=== PATIENT | male | born 1945 | race Hispanic/Latino ===

== ENCOUNTER 2019-05-06 21:37 | Emergency (ER) | payer MEDICARE ==
[~2019-05-06] VITALS: Ht 172.7 cm; Wt 73.9 kg
--- OUTSIDE RECORDS SUMMARY | 2019-05-06 21:42 | XMS REPORT | Summary of Care ---
Author Author [facility] Care [facility] Organization [facility] Address Unknown Phone Unavailable Care Team Providers Care Edge Stripper Name Role Phone Noemi Golden PCP Encounter HQ Shelleyntr_izzy(FIN) [phone] Date(s): 09/19/18 - 09/20/18 [facility] [address] [facility] [address] [place] [address]- Vital Signs No data available for this section Problem List Condition Effective Dates Status Health Status Informant Hx of unilateral Active nephrectomy(Confirme d) Benign essential Active hypertension(Confirm ed) Benign prostatic 11/14/59 Active hyperplasia(Confirme d)1 Symptomatic Active bradycardia(Confirme d) Cardiac Active pacemaker(Confirmed) Cervical Active spondylosis(Confirme d) Chronic atrial Active fibrillation(Confirm ed) Chronic back Active pain(Confirmed) Chronic kidney Active disease, stage 3(Confirmed)2 Chronic Active sinusitis(Confirmed) Acute Resolved diverticulitis(Confi rmed) Gastritis(Confirmed) Active H/O renal cell Active cancer(Confirmed) History of polyp of 04/16/15 Active colon3 Type 2 diabetes Active mellitus with hyperglycemia(Confir med) Long-term insulin Active use(Confirmed) Lumbar Active spondylosis(Confirme d) Mixed 04/12/13 Active hyperlipidemia(Confi rmed)4 Onychomycosis of Active toenails5 Overweight(Confirmed Active ) Medicare annual Active wellness visit, subsequent(Confirmed ) Screening for Active prostate cancer(Confirmed) Tension Active headache(Confirmed) Type 2 diabetes Active mellitus with polyneuropathy(Confi rmed) Encounter for Active immunization(Confirm ed) 1Data migrated from [employer] on 05/21/15. 2Data migrated from [employer] on 04/12/15. 3Data migrated from [employer] on 05/21/15. 4Data migrated from [employer] on 05/21/15. 5Data migrated from [email or web address] on 04/12/15. Allergies, Adverse Reactions, Alerts Substance Reaction Severity Status clindamycin1 nausea Active 1Data migrated from [employer] on 05/22/15. Originally documented as CLINDAMYCIN HCL. nausea Medications No data available for this section Results No data available for this section Immunizations Given and Recorded Vaccine Date Status Refusal Reason influenza virus vaccine, inactivated1 08/18/18 Recorded influenza virus vaccine, inactivated 07/20/17 Given influenza virus vaccine, inactivated 08/19/15 Given influenza virus vaccine, inactivated2 07/24/14 Given zoster vaccine live3 07/06/16 Recorded Hx influenza vaccine-unspecified4 07/06/16 Recorded Hx influenza vaccine-unspecified5 07/24/14 Given pneumococcal 13-valent vaccine6 07/06/16 Recorded 1Location History: [facility] 2Result Comment: fluzone high dose [[id number]]. Migrated from OBS ; Data migrated from [employer] on 12/16/2015. 3Location History: Pharmacy 4Location History: Pharmacy 5Result Comment: done. Migrated from OBS ; Data migrated from [employer] on 12/16/2015. 6Location History: Pharmacy Procedures Procedure Date Related Diagnosis Body Site Status CT guided percutaneous cryotherapy ablation 03/20/19 Completed of tumour of kidney1 Core needle biopsy of kidney2 12/27/18 Completed Influenza vaccination 08/18/18 Completed Comprehensive eye examination3 05/03/17 Completed Administration of herpes zoster vaccine 07/06/16 Completed Pneumococcal vaccination4 07/06/16 Completed Implantation of cardiac pacemaker 03/2016 Completed Nephrectomy5 10/24/15 Completed Colonoscopy6 05/28/15 Completed Decompression laminectomy of lumbar spine Completed TURP - Transurethral resection of prostate Completed 1Procedure: Left renal ablation-image guided. Indication: renal cell carcinoma Left kidney. 2left kidney 3no retinopathy, cataract OD 4Pre-13 5Right kidney due to right renal cancer 6polyps, diverticulosis, repeat in 3 years Social History Social History Type Response Substance Abuse Use: None. Exercise Exercise duration: 25. Exercise frequency: 1-2 times/week. Exercise type: Walking. 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 Alcohol Never Smoking Status Never smoker; Type: Cigars; Exposure to Tobacco Smoke None; Cigarette Smoking Last 365 Days No; Reg Smoking Cessation Counseling No entered on: 04/02/19 Assessment and Plan No data available for this section
--- OUTSIDE RECORDS SUMMARY | 2019-05-06 21:42 | XMS REPORT | Summary of Care ---
Author Author [facility] Organization [facility] Address Unknown Phone Unavailable Encounter SIMRAN Blake(M[place]COL[place]) [id number] Date(s): 03/06/19 - 03/06/19 [facility] [address] [place] [address]- [facility] [phone] Discharge Disposition: Home or Self Care Attending Physician: Joey Reyes MD Referring Physician: Joey Reyes MD Vital Signs 1 2 3 Most recent to oldest [Reference Range]: 172.72 cm (03/01/19 2:41 PM) Height 152/71 mmHg *HI* (03/06/19 9:35 AM) 153/80 mmHg *HI* (03/06/19 9:20 AM) 151/83 mmHg *HI* (03/06/19 9:05 AM) Blood Pressure [90-140/60-90 mmHg] 21 BRMIN *HI* (03/06/19 9:35 AM) 16 BRMIN (03/06/19 9:20 AM) 17 BRMIN (03/06/19 9:05 AM) Respiratory Rate [14-20 BRMIN] 74.574 kg (03/06/19 6:30 AM) Weight 25 m2 (03/06/19 6:30 AM) Body Mass Index Problem List Condition Effective Dates Status Health Status Informant Abdominal Active bloating(Confirmed) Hx of unilateral Active nephrectomy(Confirme d) Back pain(Confirmed) Active Benign essential Active hypertension(Confirm ed) Benign prostatic 11/14/59 Active hyperplasia(Confirme d)1 Body mass index Active 26.0-26.9, adult(Confirmed) Symptomatic Active bradycardia(Confirme d) Cancer of Active kidney(Confirmed) Cardiac Active pacemaker(Confirmed) Cervical Active spondylosis(Confirme d) Chronic atrial Active fibrillation(Confirm ed) Chronic back Active pain(Confirmed) Chronic kidney Resolved disease, stage 3(Confirmed)2 Chronic Active sinusitis(Confirmed) Mucocele of nasal Active sinus(Confirmed) Diabetes(Confirmed) Active Acute Active diverticulitis(Confi rmed) Gastritis(Confirmed) Active H/O renal cell Active cancer(Confirmed) History of polyp of 04/16/15 Active colon3 Type 2 diabetes Active mellitus with hyperglycemia(Confir med) Hypertension(Confirm Active ed) Impacted cerumen of Active right ear(Confirmed) Long-term insulin Active use(Confirmed) Lumbar Active spondylosis(Confirme d) Mixed 04/12/13 Active hyperlipidemia(Confi rmed)4 Onychomycosis of Active toenails5 Otalgia of right Active ear(Confirmed) Overweight(Confirmed Active ) Medicare annual Active wellness visit, subsequent(Confirmed ) Left renal Active mass(Confirmed) Screening for Active prostate cancer(Confirmed) Sore Active throat(Confirmed) Tension Active headache(Confirmed) Type 2 diabetes Active mellitus with polyneuropathy(Confi rmed) Encounter for Active immunization(Confirm ed) 1Data migrated from [employer] on 05/21/15. 2Data migrated from [employer] on 04/12/15. 3Data migrated from [employer] on 05/21/15. 4Data migrated from [employer] on 05/21/15. 5Data migrated from [employer] on 04/12/15. Allergies, Adverse Reactions, Alerts Substance Reaction Severity Status clindamycin1 nausea Active 1Data migrated from [employer] on 05/22/15. Originally documented as CLINDAMYCIN HCL. nausea Medications ANES fentaNYL 25 microgram, 0.5 mL, Route: IVP, Drug form: INJ, Q5Min, Dosing Weight 74.574, k g, PRN Pain Score 4-6, Priority: Routine, Start date: 03/06/19 8:14:00 CDT, Dura tion: 4 doses or times, Stop date: Limited # of times Notes: (Same as: Sublimaze) Preservative free. Start Date: 03/06/19 Stop Date: 03/06/19 Status: Discontinued ANES flumazenil 0.2 mg, 2 mL, Route: IVP, Drug form: INJ, PRN, Dosing Weight 74.574, kg, PRN Rylan zodiazepine Reversal, Initial dose, Start date: 03/06/19 8:14:00 CDT, Duration: 30 day, Stop date: 04/05/19 8:13:00 CDT Notes: (Same as: Romazicon) Start Date: 03/06/19 Stop Date: 03/06/19 Status: Discontinued ANES hydrALAZINE 10 mg, 0.5 mL, Route: IVP, Drug form: INJ, Q20Min, Dosing Weight 74.574, kg, PRN Elevated BP, Start date: 03/06/19 8:14:00 CDT, Duration: 2 doses or times, Stop date: Limited # of times Notes: (Same as: Apresoline)Push over 5 minutes Start Date: 03/06/19 Stop Date: 03/06/19 Status: Discontinued ANES naloxone 0.4 mg, 1 mL, Route: IVP, Drug form: INJ, Q2MIN, Dosing Weight 74.574, kg, PRN N arcotic Reversal, Start date: 03/06/19 8:14:00 CDT, Duration: 8 doses or times, Stop date: Limited # of times Notes: Same as Narcan Start Date: 03/06/19 Stop Date: 03/06/19 Status: Discontinued ANES ondansetron 4 mg, 2 mL, Route: IVP, Drug form: INJ, ONCE, Dosing Weight 74.574, kg, PRN Naus ea & Vomiting, Start date: 03/06/19 8:14:00 CDT Notes: (Same as: Zofran) MEDICATION WASTE Product Size: 4 mgProduct Was amanda: ___ mg Start Date: 03/06/19 Stop Date: 03/06/19 Status: Discontinued ciprofloxacin (ANES) Route: IV, Drug form: INJ, ONCE, Stop date: 03/06/19 8:18:00 CDT Start Date: 03/06/19 Stop Date: 03/06/19 Status: Completed dexamethasone (ANES) Route: IV, Drug form: INJ, ONCE, Stop date: 03/06/19 8:18:00 CDT Start Date: 03/06/19 Stop Date: 03/06/19 Status: Completed fentaNYL (ANES) Route: IV, Drug form: INJ, ONCE, Stop date: 03/06/19 8:18:00 CDT Start Date: 03/06/19 Stop Date: 03/06/19 Status: Completed furosemide 20 mg oral tablet 20 mg=1 tab, PO, Daily Start Date: 03/01/19 Status: Ordered ketOROLAC (ANES) IV, ONCE Start Date: 03/06/19 Stop Date: 03/06/19 Status: Completed Lactated Ringers Injection IV (ANES) 1000 mL Route: IV, Total Volume: 1,000, Start date: 03/06/19 6:45:00 CDT, Stop date: 7:45:00 CDT Start Date: 03/06/19 Stop Date: 03/06/19 Status: Completed Lactated Ringers Injection IV 1,000 mL 1,000 mL, Rate: 25 ml/hr, Infuse over: 40 hr, Route: IV, Dosing Weight 74.545 kg , Total Volume: 1,000, Start date: 03/06/19 5:58:00 CDT, Duration: 30 day, Stop date: 04/05/19 5:57:00 CDT, 1.9, m2 Start Date: 03/06/19 Stop Date: 03/06/19 Status: Discontinued ondansetron (ANES) Route: IV, Drug form: INJ, ONCE, Stop date: 03/06/19 8:18:00 CDT Start Date: 03/06/19 Stop Date: 03/06/19 Status: Completed propofol (ANES) Route: IV, Drug form: INJ, ONCE, Stop date: 03/06/19 8:18:00 CDT Start Date: 03/06/19 Stop Date: 03/06/19 Status: Completed tramadol 50 mg oral tablet 50 mg, 1 tab, Route: PO, Drug form: TAB, ONCE, Dosing Weight 74.574, kg, Start d ate: 03/06/19 9:25:00 CDT, Stop date: 03/06/19 9:25:00 CDT Start Date: 03/06/19 Stop Date: 03/06/19 Status: Completed Results ELECTROLYTES Most recent to 1 oldest [Reference Range]: Sodium Lvl [135-145 137 mEq/L mEq/L] (03/01/19 2:46 PM) Potassium Lvl 4.8 mEq/L [3.5-5.1 mEq/L] (03/01/19 2:46 PM) Chloride Lvl [95-109 104 mEq/L mEq/L] (03/01/19 2:46 PM) CO2 [24-32 mEq/L] 28 mEq/L (03/01/19 2:46 PM) AGAP [10.0-20.0 9.8 mEq/L mEq/L] *LOW* (03/01/19 2:46 PM) CHEM PANEL Most recent to 1 oldest [Reference Range]: Creatinine Lvl 1.24 mg/dL [0.50-1.40 mg/dL] (03/01/19 2:46 PM) eGFR 57 mL/min/1.73m2 1 *NA* (03/01/19 2:46 PM) BUN [7-22 mg/dL] 15 mg/dL (03/01/19 2:46 PM) Glucose Lvl [70-99 207 mg/dL mg/dL] *HI* (03/01/19 2:46 PM) Calcium Lvl 9.9 mg/dL [8.5-10.5 mg/dL] (03/01/19 2:46 PM) 1Result Comment: The eGFR is calculated using the CKD-EPI formula. In most young, healthy individuals the eGFR will be >90 mL/min/1.73m2. The eGFR declines with age. An eGFR of 60-89 may be normal in some populations, particularly the elderly, for whom the CKD-EPI formula has not been extensively validated. Use of the eGFR is not recommended in the following populations: Individuals with unstable creatinine concentrations, including patients and those with serious co-morbid conditions. Patients with extremes in muscle mass or diet. The data above are obtained from the National Kidney Disease Education Program ( NKDEP) which additionally recommends that when the eGFR is used in patients with extremes of body mass index for purposes of drug dosing, the eGFR should be mul tiplied by the estimated BMI. SPECIAL CHEMISTRY Most recent to 1 oldest [Reference Range]: Hgb A1C [<=5.6 %] 7.9 % *HI* (03/01/19 2:46 PM) HEMATOLOGY Most recent to 1 oldest [Reference Range]: WBC [3.7-10.4 K/CMM] 8.8 K/CMM (03/01/19 2:46 PM) RBC [4.70-6.10 4.87 M/CMM M/CMM] (03/01/19 2:46 PM) Hgb [14.0-18.0 g/dL] 15.5 g/dL (03/01/19 2:46 PM) Hct [42.0-54.0 %] 45.3 % (03/01/19 2:46 PM) MCV [80.0-94.0 fL] 92.9 fL (03/01/19 2:46 PM) MCH [27.0-31.0 pg] 31.8 pg *HI* (03/01/19 2:46 PM) MCHC [32.0-36.0 34.2 g/dL g/dL] (03/01/19 2:46 PM) RDW [11.5-14.5 %] 13.1 % (03/01/19 2:46 PM) MPV [7.4-10.4 fL] 7.4 fL (03/01/19 2:46 PM) Platelet [133-450 211 K/CMM K/CMM] (03/01/19 2:46 PM) Segs [45.0-75.0 %] 71.0 % (03/01/19 2:46 PM) Lymphocytes 19.3 % [20.0-40.0 %] *LOW* (03/01/19 2:46 PM) Monocytes [2.0-12.0 8.8 % %] (03/01/19 2:46 PM) Eosinophils [0.0-4.0 0.2 % %] (03/01/19 2:46 PM) Basophils [0.0-1.0 0.7 % %] (03/01/19 2:46 PM) Neutrophils # 6.3 K/CMM [1.5-8.1 K/CMM] (03/01/19 2:46 PM) Lymphocytes # 1.7 K/CMM [1.0-5.5 K/CMM] (03/01/19 2:46 PM) Monocytes # [0.0-0.8 0.8 K/CMM K/CMM] (03/01/19 2:46 PM) Basophils # [0.0-0.2 0.1 K/CMM K/CMM] (03/01/19 2:46 PM) Immunizations Given and Recorded Vaccine Date Status Refusal Reason influenza virus vaccine, inactivated1 08/18/18 Recorded influenza virus vaccine, inactivated 07/20/17 Given influenza virus vaccine, inactivated 08/19/15 Given influenza virus vaccine, inactivated2 07/24/14 Given pneumococcal 13-valent vaccine3 07/06/16 Recorded Hx influenza vaccine-unspecified4 07/06/16 Recorded Hx influenza vaccine-unspecified5 07/24/14 Given zoster vaccine live6 07/06/16 Recorded 1Location History: [facility] 2Result Comment: fluzone high dose [[id number]]. Migrated from OBS ; Data migrated from Interview on 12/16/2015. 3Location History: Pharmacy 4Location History: Pharmacy 5Result Comment: done. Migrated from OBS ; Data migrated from Interview on 12/16/2015. 6Location History: Pharmacy Procedures Procedure Date Related Diagnosis Body Site Status Core needle biopsy of kidney1 12/27/18 Completed Influenza vaccination 08/18/18 Completed Comprehensive eye examination2 05/03/17 Completed Administration of herpes zoster vaccine 07/06/16 Completed Pneumococcal vaccination3 07/06/16 Completed Implantation of cardiac pacemaker 03/2016 Completed Nephrectomy4 10/24/15 Completed Colonoscopy5 05/28/15 Completed Decompression laminectomy of lumbar spine Completed TURP - Transurethral resection of prostate Completed 1left kidney 2no retinopathy, cataract OD 3Prevnar-13 4Right kidney due to right renal cancer 5polyps, diverticulosis, repeat in 3 years Social History Social History Type Response Substance Abuse Use: None. Exercise Exercise duration: 25. Exercise frequency: 1-2 times/week. Exercise type: Walking. 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
--- OUTSIDE RECORDS SUMMARY | 2019-05-06 21:42 | XMS REPORT | Continuity of Care Document ---
Author Author [facility] Interface Address Unknown Phone Unavailable Problems Problem Status Onset Date Classification Date Reported Comments Source DSU/CRYOABLATION OF LEFT LOWER POLE REINIER Active 03/13/2019 [facility] UNK Active 02/23/2019 [facility] CYSTO STENT PLACEMENT Active 02/23/2019 [facility] RENAL MASS Active 12/05/2018 [facility] Other specified disorders of kidney and ureter 09/30/2018 04/16/2019 [facility] DX: N28.89=OTHER SPECIFIED DISORDERS OF Active 09/19/2018 [facility] BACK PAIN Active 11/14/2016 [facility] [place] Discharge Diagnosis: Renovascular hypertension 11/06/2016 11/09/2016 [facility] Discharge Diagnosis: Acute ethmoidal sinusitis 11/06/2016 11/09/2016 [facility] Discharge Diagnosis: Acute tension-type headache 11/06/2016 11/09/2016 [facility] Discharge Diagnosis: Chronic right maxillary sinusitis 11/06/2016 11/09/2016 [facility] Discharge Diagnosis: Controlled diabetes mellitus type 2 with complications 11/06/2016 11/09/2016 [facility] HEAD PAIN Active 11/05/2016 [facility] DIVERTICULITIS Active 03/25/2016 [facility] ABD PAIN Active 03/25/2016 [facility] M89.8X1 - OTHER SPECIFIED DISORDERS OF B Active 02/13/2016 [facility] History of polyp of colon<sup>3</sup> Active 04/16/2015 Problem 05/04/2019 Data migrated from [email or web address] on 05/21/15. Medical Group,[facility], [place],[facility] History of polyp of colon<sup>4</sup> Active 04/16/2015 Problem 11/09/2016 Data migrated from [email or web address] on 05/21/15. [facility] Iron deficiency anemia<sup>5</sup> Resolved 01/13/2015 Problem 11/09/2016 Data migrated from [email or web address] on 05/21/15. [facility] Iron deficiency anemia<sup>4</sup> Active 01/13/2015 Problem 12/29/2018 Data migrated from [employer] on 05/21/15. Medical Group,[facility] HYPONATREMIA, HEADACHE Active 03/22/2014 [facility] HEADACHE, WEAKNESS Active 03/22/2014 [facility] Benign essential hypertension<sup>1</sup> Active 04/12/2013 Problem 11/09/2016 Data migrated from [employer] on 04/12/15. MARCELLUS [place],[facility] Microalbuminuria<sup>6</sup> Active 04/12/2013 Problem 11/09/2016 Data migrated from [employer] on 04/12/15. MARCELLUS [place],[facility] Mixed hyperlipidemia<sup>7</sup> Active 04/12/2013 Problem 11/09/2016 Data migrated from [employer] on 05/21/15. MARCELLUS [place],[facility] Mixed hyperlipidemia<sup>4</sup> Active 04/12/2013 Problem 05/04/2019 Data migrated from [employer] on 05/21/15. Medical Group,[facility] Mixed hyperlipidemia<sup>5</sup> Active 04/12/2013 Problem 12/29/2018 Data migrated from [employer] on 05/21/15. [facility] prostatic hyperplasia<sup>1</sup> Active 11/14/1961 Problem 05/04/2019 Data migrated from [employer] on 05/21/15. [facility] Benign prostatic hyperplasia<sup>2</sup> Active 11/14/1959 Problem 11/09/2016 Data migrated from [employer] on 05/21/15. MARCELLUS [place],[facility] Hx of unilateral nephrectomy Active Problem 05/04/2019 Medical Group, [facility]CELL[facility]ier[facility] Symptomatic bradycardia Active Problem 05/04/2019 Medical Group,[facility] Cardiac pacemaker Active Problem 05/04/2019 Medical Group,[facility] Cervical spondylosis Active Problem 05/04/2019 Medical Group,[facility] Chronic atrial fibrillation Active Problem 05/04/2019 Medical Group, [facility]CELLUS [facility]ier[facility] Chronic back pain Active Problem 05/04/2019 Medical Group, MARCELLUS Fierro,[facility] Chronic kidney disease, stage 3<sup>2</sup> Active Problem 05/04/2019 Data migrated from [email or web address] on 04/12/15. Medical Group,[facility] Chronic sinusitis Active Problem 05/04/2019 Medical Group,[facility] Mucocele of nasal sinus Active Problem 03/29/2019 Medical Group,[facility] Gastritis Active Problem 05/04/2019 Medical Group, MARCELLUS Fierro,[facility] H/O renal cell cancer Active Problem 05/04/2019 Medical Group,[facility] Hoarseness of voice Active Problem 05/26/2018 Medical Group Type 2 diabetes mellitus with hyperglycemia Active Problem 05/04/2019 Medical Group,[facility] Lumbar spondylosis Active Problem 05/04/2019 Medical Group,[facility] Screening for prostate cancer Active Problem 05/04/2019 Medical Group, [facility]CELL[facility]ierro,[facility] Tension headache Active Problem 05/04/2019 Medical Group,[facility] Type 2 diabetes mellitus with polyneuropathy Active Problem 05/04/2019 Medical Group,[facility] Type 2 diabetes mellitus with stage 3 chronic kidney disease Active Problem 05/26/2018 Medical [facility] Encounter for immunization Active Problem 05/04/2019 Medical Group,[facility] Abdominal bloating Resolved Problem 11/09/2016 [facility]CELL[facility] Fierro [place] Blurry vision, bilateral Active Problem 11/09/2016 [facility] Chronic kidney disease stage 2<sup>3</sup> Active Problem 11/09/2016 Data migrated from [email or web address] on 04/12/15. [facility] Hypocalcemia Resolved Problem 11/09/2016 [facility] Hypokalemia Resolved Problem 11/09/2016 [facility] Hyponatremia Resolved Problem 11/09/2016 [facility] Occipital headache Active Problem 11/09/2016 [facility] Onychomycosis of toenails<sup>8</sup> Active Problem 11/09/2016 Data migrated from [email or web address] on 04/12/15. [place],[facility] Pain in scapula Resolved Problem 11/09/2016 [facility] [place],[facility] Peripheral edema Resolved Problem 11/09/2016 [facility] Renal cancer Active Problem 11/09/2016 [facility] [place],[facility] Screening for diabetic retinopathy Active Problem 11/09/2016 [facility] [place],[facility] Type 2 diabetes mellitus with hyperglycemia [facility] [place] Type 2 diabetes mellitus with stage 2 chronic kidney disease Active Problem 11/09/2016 [facility] Diverticulosis Resolved Problem 03/31/2016 [facility] Nausea Active Problem 03/31/2016 [facility] Type 2 diabetes, uncontrolled, with renal manifestation Active Problem 03/31/2016 [facility] [place],[facility] Atrial fibrillation Resolved Problem 03/25/2014 [facility] Hyperlipemia Resolved Problem 03/25/2014 [facility] Left renal mass Active Problem 03/29/2019 Medical Group,[facility] Benign essential hypertension Active Problem 05/04/2019 [facility] Body mass index 26.0-26.9, adult Active Problem 03/29/2019 [facility] Long[facility]term insulin use Active Problem 05/04/2019 Medical Group,[facility] Onychomycosis of toenails<sup>5</sup> Active Problem 05/04/2019 Data migrated from [email or web address] on 04/12/15. [facility] Medicare annual wellness visit, subsequent Active Problem 05/04/2019 [facility] Acute sinusitis Active Problem 12/29/2018 [facility] Benign hypertension with chronic kidney disease, stage III Active Problem 12/29/2018 Medical [facility] Onychomycosis of toenails<sup>6</sup> Active Problem 12/29/2018 Data migrated from [facility] on 04/12/15. Medical Group,[facility] Acute diverticulitis Resolved Problem 05/04/2019 [facility], [facility] Abdominal bloating Active Problem 03/08/2019 [facility] [place],[facility] Back pain Active Problem 03/08/2019 [facility] Cancer of kidney Active Problem 03/08/2019 [facility] Diabetes Active Problem 03/08/2019 [facility] Hypertension Active Problem 03/08/2019 [facility] Malignant otitis externa, right ear Active Problem 05/04/2019 Medical [facility] Diverticulosis of large intestine without perforation or abscess without bleeding 04/16/2019 [facility] Benign prostatic hyperplasia without lower urinary tract symptoms 04/16/2019 [facility] Personal history of other malignant neoplasm of kidney 04/16/2019 [facility] Acquired absence of kidney 04/16/2019 [facility] Impacted cerumen of right ear Active Problem 03/29/2019 [facility], Medical [facility] Otalgia of right ear Active Problem 03/29/2019 [facility] Sore throat Active Problem 03/29/2019 [facility] Abdominal bloating Active Problem 03/23/2019 MARCELL[facility],[facility] Back pain Active Problem 03/23/2019 [facility] Cancer of kidney Active Problem 03/23/2019 [facility] Diabetes Active Problem 03/23/2019 [facility] Hypertension Active Problem 03/23/2019 [facility] Impacted cerumen of right ear Active Problem 03/23/2019 [facility] Otalgia of right ear Active Problem 03/23/2019 [facility] Sore throat Active Problem 03/23/2019 [facility] Abdominal bloating Active Problem 03/29/2019 [facility] [place], Medical [facility] Back pain Active Problem 03/29/2019 [facility], Medical [facility] Cancer of kidney Active Problem 03/29/2019 [facility], Medical [facility] Diabetes Active Problem 03/29/2019 [facility] Hypertension Active Problem 03/29/2019 [facility] Group DVTRCLI OF INTEST, PART UNSP, W/O PERF O Active [facility] Medications Medication Details Route Status Patient Instructions Ordering Provider Order Date Source Acetaminophen 500 MG Oral Tablet 500 mg=1 tab, PO, TID, PRN Fever, X 10 day, # 24 tab, 0 Refill(s), Pharmacy: [facility] [facility] Active 04/27/2019 Medical Group Ciprofloxacin 3 MG/ML / Dexamethasone 1 MG/ML Otic Suspension 4 drp, OTIC, BID, shake well before using R ear, X 7 day, # 7 ml, 0 Refill(s), Pharmacy: [facility] [employer] [facility] Active 04/27/2019 [facility] Ciprofloxacin 500 MG Oral Tablet [Cipro] 500 mg=1 tab, PO, Q12H, X 10 day, # 20 tab, 0 Refill(s), Pharmacy: [facility] Active 04/27/2019 [facility] Glipizide 10 MG Oral Tablet See Instructions, # 270 tab, Refill(s) 1, TAKE 1 TABLET BY MOUTH THREE TIMES DAILY MEALS, [facility] Active 04/10/2019 [facility] baclofen 20 mg oral tablet 20 mg=1 tab, PO, BID, PRN Spasms, # 40 tab, 0 Refill(s), Pharmacy: [facility] Active 04/02/2019 [facility] Acetaminophen 325 MG / tramadol hydrochloride 37.5 MG Oral Tablet 1 tab, PO, Q8H, PRN Pain, # 40 tab, 0 Refill(s) Active 04/02/2019 [facility] Group Acetaminophen 325 MG / tramadol hydrochloride 37.5 MG Oral Tablet 1 tab, PO, Q8H, PRN Pain, # 40 tab, 0 Refill(s) Inactive 04/02/2019 Medical Group tamsulosin 0.4 mg, 1 cap, Route: PO, Drug form: CAP, Daily, Dosing Weight 74.545, kg, Start date: 03/21/19 9:00:00 CDT, Duration: 30 day, Stop date: 04/19/19 9:00:00 CDTNotes: (Same As: Flomax) "Do Not Crush" Inactive 03/21/2019 [facility] pantoprazole 40 mg, 1 tab, Route: PO, Drug form: ECTAB, Daily, Dosing Weight 74.545, kg, Start date: 03/21/19 9:00:00 CDT, Duration: 30 day, Stop date: 04/19/19 9:00:00 CDTNotes: Tablet should not be chewed or cr ushed. (Same as: Protonix) Inactive 03/21/2019 [facility] Fluticasone propionate 0.05 MG/ACTUAT Metered Dose Nasal [place] 2 spray, Route: NASAL, Drug Form: SPRY, Dosing Weight 74.545, kg, Daily, Start date: 03/21/19 9:00:00 CDT, Duration: 30 day, Stop date: 04/19/19 9:00:00 CDTNotes: (Same as: Flonase) Inactive 03/21/2019 [facility] enalapril 10 mg, 1 tab, Route: PO, Drug form: TAB, Daily, Dosing Weight 74.545, kg, Start date: 03/21/19 9:00:00 CDT, Duration: 30 day, Stop date: 04/19/19 9:00:00 CDTNotes: (Same as: Vasotec) No Longer Active 03/21/2019 [facility] Basrosetta Escalante 12 unit, SUB-Q, Bedtime, 0 Refill(s) Active 03/21/2019 [facility] pantoprazole 40 mg oral enteric coated tablet 40 mg=1 tab, PO, Daily, # 30 tab, 0 Refill(s) Active 03/21/2019 [facility] pregabalin 50 MG Oral Capsule [Lyrica] 50 mg=1 cap, PO, BID, 0 Refill(s) Active 03/21/2019 [facility] Linagliptin 5 MG Oral Tablet [Tradjenta] 5 mg=1 tab, PO, Daily, # 30 tab, 3 Refill(s) Active 03/21/2019 [facility] Simvastatin 20 mg=1 tab, PO, Bedtime, # 30 tab, 0 Refill(s) Active 03/21/2019 [facility] enalapril 10 mg, PO, Daily, 0 Refill(s) Active 03/21/2019 [facility] tamsulosin 0.4 mg oral capsule 0.4 mg=1 cap, PO, Daily, # 30 cap, 0 Refill(s) Active 03/21/2019 [facility] repaglinide 2 mg, PO, TID-Before Meals, 0 Refill(s) Active 03/21/2019 [facility] Glipizide 10 mg, PO, Daily, 0 Refill(s) Active 03/21/2019 [facility] apixaban 5 MG Oral Tablet [Eliquis] 5 mg, PO, Q12H, 0 Refill(s) Active 03/21/2019 [facility] Tramadol 50 mg, PO, Q4-6H, PRN Pain, # 20 tab, 0 Refill(s) Active 03/21/2019 [facility] baclofen 5 mg oral tablet 5 mg=1 tab, PO, BID, PRN Spasm, 0 Refill(s) Inactive 03/21/2019 [facility] pneumococcal capsular polysaccharide type 1 vaccine / pneumococcal capsular polysaccharide type 10A vaccine / pneumococcal capsular polysaccharide type 11A vaccine / pneumococcal capsular polysaccharide type 12F vaccine / pneumococcal capsular polysacchar 0.5 mL, Route: IM, Drug Form: INJ, ONCALL, Start date: 03/21/19 1:23:08 CDT, Stop date: 04/20/19 1:18:08 CDTNotes: (Same as: Pneumovax 23) Refrigerate Inactive 03/21/2019 [facility] Norvasc 10 mg, 1 tab, Route: PO, Drug form: TAB, Daily, Dosing Weight 74.545, kg, Priority: STAT, Start date: 03/20/19 21:37:00 CDT, Duration: 30 day, Stop date: 04/19/19 9:00:00 CDTNotes: (Same as: Norvasc) No Longer Active 03/21/2019 [facility] Insulin Lispro 2 unit, 0.02 mL, Route: SUB-Q, Drug form: SOLN, Bedtime, Dosing Weight 74.545, kg, PRN Blood Glucose Results, Start date: 03/20/19 21:32:00 CDT, Duration: 30 day, Stop date: 04/19/19 21:31:00 CDTNotes: (Same as: Humalog) Roll in palms of hands gently; Do not shake vigorously. WASTE: F/P - Black; E - Municipal Trash Bin Stable for 28 days at room temperature. Expires in days from Date No Longer Active 03/21/2019 [facility] Dextrose 50% Syringe 25 gm, 50 mL, Route: IVP, Drug Form: INJ, Dosing Weight 74.545, kg, PRN, PRN Blood Glucose Results, Start date: 03/20/19 21:32:00 CDT, Duration: 30 day, Stop date: 04/19/19 21:31:00 CDT No Longer Active 03/21/2019 [facility] Glucagon 1 mg, Route: IM, Drug form: PDR/INJ, PRN, Dosing Weight 74.545, kg, PRN Blood Glucose Results, Start date: 03/20/19 21:32:00 CDT, Duration: 30 day, Stop date: 04/19/19 21:31:00 CDT No Longer Active 03/21/2019 [facility] enalapril 10 mg, 1 tab, Route: PO, Drug form: TAB, Daily, Dosing Weight 74.545, kg, Priority: STAT, Start date: 03/20/19 21:31:00 CDT, Duration: 30 day, Stop date: 04/19/19 9:00:00 CDTNotes: (Same as: Vasotec) No Longer Active 03/21/2019 [facility] Insulin Glargine 100 UNT/ML Injectable Solution [Lantus] 10 unit, 0.1 mL, Route: SUB-Q, Drug form: SOLN, Bedtime, Dosing Weight 74.545, kg, Start date: 03/20/19 21:00:00 CDT, Duration: 30 day, Stop date: 04/18/19 21:00:00 CDT No Longer Active 03/21/2019 [facility] Simvastatin 20 mg, 1 tab, Route: PO, Drug form: TAB, Bedtime, Dosing Weight 74.545, kg, Start date: 03/20/19 21:00:00 CDT, Duration: 30 day, Stop date: 04/18/19 21:00:00 CDTNotes: (Same as: Zocor) No Longer Active 03/21/2019 [facility] sennosides, JAIL 17.2 mg, 2 tab, Route: PO, Drug Form: TAB, Dosing Weight 74.545, kg, Bedtime, Start date: 03/20/19 21:00:00 CDT, Duration: 30 day, Stop date: 04/18/19 21:00:00 CDTNotes: (Same as: Senokot) No Longer Active 03/21/2019 [facility] Lyrica 50 mg, 1 cap, Route: PO, Drug form: CAP, BID, Dosing Weight 74.545, kg, Start date: 03/20/19 17:00:00 CDT, Duration: 30 day, Stop date: 04/19/19 9:00:00 CDTNotes: Same as Lyrica No Longer Active 03/20/2019 [facility] Docusate 100 mg, 1 cap, Route: PO, Drug form: CAP, BID, Dosing Weight 74.545, kg, Start date: 03/20/19 17:00:00 CDT, Duration: 30 day, Stop date: 04/19/19 9:00:00 CDTNotes: (Same as: Colace) (Do Not Crush) No Longer Active 03/20/2019 [facility] Insulin Lispro 5 unit, 0.05 mL, Route: SUB-Q, Drug form: SOLN, TID-Before Meals, Dosing Weight 74.545, kg, PRN Blood Glucose Results, Start date: 03/20/19 16:01:00 CDT, Duration: 30 day, Stop date: 04/19/19 16:00:0 0 CDTNotes: (Same as: Humalog) Roll in palms of hands gently; Do not shake vigorously. WASTE: F/P - Black; E - Municipal Trash Bin Stable for 28 days at room temperature. Expires in days from Date No Longer Active 03/20/2019 [facility] Glucagon 1 mg, Route: IM, Drug form: PDR/INJ, PRN, Dosing Weight 74.545, kg, PRN Blood Glucose Results, Start date: 03/20/19 16:01:00 CDT, Duration: 30 day, Stop date: 04/19/19 16:00:00 CDT No Longer Active 03/20/2019 [facility] Dextrose 50% Syringe 25 gm, 50 mL, Route: IVP, Drug Form: INJ, Dosing Weight 74.545, kg, PRN, PRN Blood Glucose Results, Start date: 03/20/19 16:01:00 CDT, Duration: 30 day, Stop date: 04/19/19 16:00:00 CDT No Longer Active 03/20/2019 [facility] Dextrose 50% Syringe 25 gm, 50 mL, Route: IVP, Drug Form: INJ, Dosing Weight 74.545, kg, PRN, PRN Blood Glucose Results, Start date: 03/20/19 15:59:00 CDT, Duration: 30 day, Stop date: 04/19/19 15:58:00 CDT No Longer Active 03/20/2019 [facility] Glucagon 1 mg, Route: IM, Drug form: PDR/INJ, PRN, Dosing Weight 74.545, kg, PRN Blood Glucose Results, Start date: 03/20/19 15:59:00 CDT, Duration: 30 day, Stop date: 04/19/19 15:58:00 CDT No Longer Active 03/20/2019 [facility] Ondansetron 4 mg, 2 mL, Route: IVP, Drug form: INJ, Q8H, Dosing Weight 74.545, kg, PRN Nausea & Vomiting, Start date: 03/20/19 15:59:00 CDT, Duration: 30 day, Stop date: 04/19/19 15:58:00 CDTNotes: (Same as: Zofran) MEDICATION WASTE Product Size: 4 mg Product Wasted: ___ mg No Longer Active 03/20/2019 [facility] Promethazine 6.25 mg, 0.25 mL, Route: IVPB, Drug form: INJ, ONCE, Dosing Weight 74.545, kg, PRN Nausea & Vomiting, Start date: 03/20/19 15:35:00 CDTNotes: Do not give IV push. (Same as: Phenergan) Inactive 03/20/2019 [facility] Naloxone 0.4 mg, 1 mL, Route: IVP, Drug form: INJ, Q2MIN, Dosing Weight 74.545, kg, PRN Narcotic Reversal, Start date: 03/20/19 15:35:00 CDT, Duration: 8 doses or times, Stop date: Limited # of timesNotes: Same as Narcan Inactive 03/20/2019 [facility] Flumazenil 0.2 mg, 2 mL, Route: IVP, Drug form: INJ, PRN, Dosing Weight 74.545, kg, PRN Benzodiazepine Reversal, Initial dose, Start date: 03/20/19 15:35:00 CDT, Duration: 30 day, Stop date: 04/19/19 15:34:00 C DTNotes: (Same as: Romazicon) Inactive 03/20/2019 [facility] Ondansetron 4 mg, 2 mL, Route: IVP, Drug form: INJ, ONCE, Dosing Weight 74.545, kg, PRN Nausea & Vomiting, Start date: 03/20/19 15:35:00 CDTNotes: (Same as: Eduin) MEDICATION WASTE Product Size: 4 mg Product Wasted: ___ mg Inactive 03/20/2019 [facility] Oxycodone 5 mg, 1 tab, Route: PO, Drug form: TAB, Q4H, Dosing Weight 74.545, kg, PRN Pain Score 4-6, Start date: 03/20/19 15:35:00 CDT, Duration: 30 day, Stop date: 04/19/19 15:34:00 CDTNotes: (Same as: Roxicodone) Inactive 03/20/2019 [facility] Labetalol 10 mg, 2 mL, Route: IVP, Drug form: INJ, Q5Min, Dosing Weight 74.545, kg, PRN Elevated BP, Start date: 03/20/19 15:35:00 CDT, Duration: 5 doses or times, Stop date: Limited # of times Inactive 03/20/2019 [facility] Hydralazine 10 mg, 0.5 mL, Route: IVP, Drug form: INJ, Q20Min, Dosing Weight 74.545, kg, PRN Elevated BP, Start date: 03/20/19 15:35:00 CDT, Duration: 2 doses or times, Stop date: Limited # of timesNotes: (Same as: Apresoline) Push over 5 minutes Inactive 03/20/2019 [facility] Hydromorphone 0.5 mg, 0.25 mL, Route: IVP, Drug form: INJ, Q5Min, Dosing Weight 74.545, kg, PRN Pain Score 7-10, Start date: 03/20/19 15:35:00 CDT, Duration: 4 doses or times, Stop date: Limited # of timesNotes: S charisse as Dilaudid Inactive 03/20/2019 [facility] Acetaminophen 325 MG / Hydrocodone Bitartrate 10 MG Oral Tablet 1 tab, Route: PO, Drug Form: TAB, Dosing Weight 74.545, kg, Q4H, PRN Pain Score 4-6, Start date: 03/20/19 15:15:00 CDT, Duration: 30 day, Stop date: 04/19/19 15:14:00 CDTNotes: Do not exceed 4gm/day of acetaminophen. (Same as: Selmer 325/10) No Longer Active 03/20/2019 [facility] Hydromorphone 1 mg, 0.5 mL, Route: IVP, Drug form: INJ, Q4H, Dosing Weight 74.545, kg, PRN Pain Score 7-10, Start date: 03/20/19 15:15:00 CDT, Duration: 30 day, Stop date: 04/19/19 15:14:00 CDTNotes: Same as Dilaudid No Longer Active 03/20/2019 [facility] tramadol hydrochloride 50 MG Oral Tablet 50 mg, 1 tab, Route: PO, Drug form: TAB, ONCE, Dosing Weight 74.574, kg, Start date: 03/06/19 9:25:00 CDT, Stop date: 03/06/19 9:25:00 CDT Inactive 03/06/2019 [facility] fentaNYL (ANES) Route: IV, Drug form: INJ, ONCE, Stop date: 03/06/19 8:18:00 CDT Inactive 03/06/2019 [facility] ketOROLAC (ANES) IV, ONCE Inactive 03/06/2019 [facility] dexamethasone (ANES) Route: IV, Drug form: INJ, ONCE, Stop date: 03/06/19 8:18:00 CDT Inactive 03/06/2019 [facility] ciprofloxacin (ANES) Route: IV, Drug form: INJ, ONCE, Stop date: 03/06/19 8:18:00 CDT Inactive 03/06/2019 [facility] propofol (ANES) Route: IV, Drug form: INJ, ONCE, Stop date: 03/06/19 8:18:00 CDT Inactive 03/06/2019 [facility] ondansetron (ANES) Route: IV, Drug form: INJ, ONCE, Stop date: 03/06/19 8:18:00 CDT Inactive 03/06/2019 [facility] Ondansetron 4 mg, 2 mL, Route: IVP, Drug form: INJ, ONCE, Dosing Weight 74.574, kg, PRN Nausea & Vomiting, Start date: 03/06/19 8:14:00 CDTNotes: (Same as: Zofran) MEDICATION WASTE Product Size: 4 mg Product Wasted: ___ mg Inactive 03/06/2019 [facility] Flumazenil 0.2 mg, 2 mL, Route: IVP, Drug form: INJ, PRN, Dosing Weight 74.574, kg, PRN Benzodiazepine Reversal, Initial dose, Start date: 03/06/19 8:14:00 CDT, Duration: 30 day, Stop date: 04/05/19 8:13:00 CDT Notes: (Same as: Romazicon) Inactive 03/06/2019 [facility] Naloxone 0.4 mg, 1 mL, Route: IVP, Drug form: INJ, Q2MIN, Dosing Weight 74.574, kg, PRN Narcotic Reversal, Start date: 03/06/19 8:14:00 CDT, Duration: 8 doses or times, Stop date: Limited # of timesNotes: Same as Narcan Inactive 03/06/2019 [facility] Hydralazine 10 mg, 0.5 mL, Route: IVP, Drug form: INJ, Q20Min, Dosing Weight 74.574, kg, PRN Elevated BP, Start date: 03/06/19 8:14:00 CDT, Duration: 2 doses or times, Stop date: Limited # of timesNotes: (Same as: Apresoline) Push over 5 minutes Inactive 03/06/2019 [facility] Fentanyl 25 microgram, 0.5 mL, Route: IVP, Drug form: INJ, Q5Min, Dosing Weight 74.574, kg, PRN Pain Score 4-6, Priority: Routine, Start date: 03/06/19 8:14:00 CDT, Duration: 4 doses or times, Stop date: Limited # of timesNotes: (Same as: Sublimaze) Preservative free. Inactive 03/06/2019 [facility] Lactated Ringers Injection IV (ANES) 1000 mL Route: IV, Total Volume: 1,000, Start date: 03/06/19 6:45:00 CDT, Stop date: 03/06/19 7:45:00 CDT Inactive 03/06/2019 [facility] Calcium Chloride 0.0014 MEQ/ML / Potassium Chloride 0.004 MEQ/ML / Sodium Chloride 0.103 MEQ/ML / Sodium Lactate 0.028 MEQ/ML Injectable Solution 1,000 mL, Rate: 25 ml/hr, Infuse over: 40 hr, Route: IV, Dosing Weight 74.545 kg, Total Volume: 1,000, Start date: 03/06/19 5:58:00 CDT, Duration: 30 day, Stop date: 04/05/19 5:57:00 CDT, 1.9, m2 Inactive 03/06/2019 [facility] Furosemide 20 MG Oral Tablet 20 mg=1 tab, PO, Daily Active 03/01/2019 [facility] Acetaminophen 325 MG / tramadol hydrochloride 37.5 MG Oral Tablet 1 tab, PO, Q8H, PRN Pain, # 40 tab, 0 Refill(s) Active 03/01/2019 [facility] Acetaminophen 325 MG / tramadol hydrochloride 37.5 MG Oral Tablet 1 tab, PO, Q8H, PRN Pain, # 40 tab, 0 Refill(s) Active 01/03/[facility] baclofen 20 mg oral tablet 20 mg=1 tab, PO, BID, PRN Spasms, # 40 tab, 0 Refill(s), Pharmacy: [facility] [id number] Active 01/03/2019 [facility] enalapril 10 mg oral tablet 10 mg=1 tab, PO, Daily, # 90 tab, 1 Refill(s), Pharmacy: [facility] [id number] Active 01/03/2019 [facility] Excedrin Tension Headache Geltab 0 Refill(s) Active 01/03/2019 [facility] 3 ML Insulin Glargine 100 UNT/ML Pen Injector [Basaglar] 10 unit, SUB-Q, Bedtime, # 1 box, 3 Refill(s), Pharmacy: [facility] Active 12/06/2018 [facility] BD Ultra-Fine Veronica Insulin Pen Avilla 32G 4mm=5/32 inch Patient injects once daily., MISC, Daily, # 100 ea, 5 Refill(s), Pharmacy: [facility] Active 12/06/2018 [facility] Linagliptin 5 MG Oral Tablet [Tradjenta] 5 mg=1 tab, PO, Daily, # 90 tab, 1 Refill(s), Pharmacy: [facility] Active 12/05/2018 [facility] repaglinide 2 mg oral tablet 2 mg=1 tab, PO, TID-Before Meals, # 270 tab, 3 Refill(s), Pharmacy: [facility] Inactive 11/15/2018 [facility] baclofen 10 mg oral tablet 10 mg=1 tab, PO, BID, PRN muscle spasm, # 180 tab, 3 Refill(s), Pharmacy: [facility] Inactive 11/15/2018 [facility] pantoprazole 40 mg oral enteric coated tablet 40 mg=1 tab, PO, Daily, # 90 tab, 1 Refill(s), Pharmacy: [facility] No Longer Active 10/11/2018 [facility] apixaban 5 MG Oral Tablet [Eliquis] 5 mg=1 tab, PO, BID, # 180 tab, 1 Refill(s), Pharmacy: [facility] [id number] No Longer Active 10/11/2018 [facility] Glipizide 10 MG Oral Tablet 10 mg=1 tab, PO, TID-Meals, # 270 tab, 1 Refill(s), Pharmacy: [facility] [id number] No Longer Active 10/03/2018 [facility] pregabalin 50 MG Oral Capsule [Lyrica] 50 mg=1 cap, PO, BID, X 30 day, # 60 cap, 0 Refill(s) No Longer Active 10/03/2018 [facility] Omnipaque 300 injectable solution 100 mL, Route: IV, Drug Form: SOLN, Dosing Weight 75.511, kg, ONCALL, GFR > 45 mL/min, Start date: 09/26/18 8:00:00 INVESTMENT UNDERWRITER, Duration: 1 doses or timesNotes: (Same as:Omnipaque 300). WASTE: F/P - Black; E - Municipal Trash Bin No Longer Active 09/26/2018 [facility] pregabalin 50 MG Oral Capsule [Lyrica] 50 mg=1 cap, PO, BID, # 180 cap, 1 Refill(s) No Longer Active 09/21/2018 [facility] Azithromycin 5 Day Dose Pack 250 mg oral tablet See Instructions, Take 2 tablets by mouth the first day then 1 tablet by mouth days 2-5., X 5 day, # 6 tab, 0 Refill(s), Pharmacy: [facility] [id number] No Longer Active 09/18/2018 [facility] pregabalin 50 MG Oral Capsule [Lyrica] 50 mg=1 cap, PO, BID, 0 Refill(s) No Longer Active 09/18/2018 [facility] Acetaminophen 325 MG / tramadol hydrochloride 37.5 MG Oral Tablet [Ultracet] 1 tab, PO, Q8H, PRN Pain, # 40 tab, 0 Refill(s) Active 11/08/2017 [facility] baclofen 10 mg oral tablet 10 mg=1 tab, PO, BID, PRN muscle spasm, # 40 tab, 0 Refill(s), Pharmacy: [place] [id number] Active 10/29/2017 [facility] enalapril 5 mg oral tablet 5 mg=1 tab, PO, Daily, # 90 tab, 1 Refill(s), Pharmacy: [place] [id number] Active 10/25/2017 [facility] Acetaminophen 325 MG / tramadol hydrochloride 37.5 MG Oral Tablet [Ultracet] 1 tab, PO, Q8H, PRN Pain, # 40 tab, 0 Refill(s) Active 10/03/2017 [facility] Ondansetron 8 MG Disintegrating Tablet [Zofran] 8 mg=1 tab, PO, TID, PRN Nausea and Vomiting, Dissolve tab under tongue, X 4 day, # 30 tab, 0 Refill(s) Active 11/06/2016 [facility] Acetaminophen 300 MG / Codeine Phosphate 30 MG Oral Tablet 1 tab, PO, Q4H, PRN Pain, X 7 day, # 42 tab, 0 Refill(s) Active 11/06/2016 [facility] Amoxicillin 875 MG / Clavulanate 125 MG Oral Tablet [Augmentin 875-mg] 875 mg=1 tab, PO, BID, X 10 day, # 20 tab, 0 Refill(s) Active 11/06/2016 [facility] Morphine 2 mg, Route: IVP, ONCE, Dosing Weight 75.909, kg, Priority: STAT, Start date: 11/05/16 23:20:00 INVESTMENT UNDERWRITER, Stop date: 11/05/16 23:20:00 INVESTMENT UNDERWRITER Inactive 11/06/2016 [facility] Acetaminophen 650 mg, Route: PO, Drug form: TAB, ONCE, Dosing Weight 75.909, kg, Priority: STAT, Start date: 11/05/16 23:20:00 INVESTMENT UNDERWRITER, Stop date: 11/05/16 23:20:00 INVESTMENT UNDERWRITER Inactive 11/06/2016 [facility] Saline Flush 0.9% 10 mL, Route: IVP, Drug Form: INJ, Dosing Weight 75.909, kg, PRN, PRN Line Flush, Start date: 11/05/16 23:20:00 INVESTMENT UNDERWRITER, Duration: 30 day, Stop date: 12/05/16 23:19:00 CSTNotes: (Same as: BD Posiflush) No Longer Active 11/06/2016 [facility] Reglan 10 mg, Route: IVP, Drug form: INJ, ONCE, Dosing Weight 75.909, kg, Priority: STAT, Start date: 11/05/16 23:20:00 INVESTMENT UNDERWRITER, Stop date: 11/05/16 23:20:00 INVESTMENT UNDERWRITER Inactive 11/06/2016 [facility] Ondansetron 4 MG Disintegrating Tablet [Zofran] 4 mg=1 tab, PO, BID, PRN Nausea and Vomiting, Dissolve tab under tongue, X 5 day, # 10 tab, 0 Refill(s) Active 03/28/2016 [facility] Metronidazole 500 MG Oral Tablet [Flagyl] 500 mg=1 tab, PO, Q8H, X 10 day, # 30 tab, 0 Refill(s) Active 03/28/2016 [facility] Ciprofloxacin 500 MG Oral Tablet [Cipro] 500 mg=1 tab, PO, Q12H, X 10 day, # 20 tab, 0 Refill(s) Active 03/28/2016 [facility] potassium chloride 40 mEq, 2 tab, Route: PO, Drug form: ERTAB, ONCE, Dosing Weight 70.199, kg, Priority: NOW, Start date: 03/28/16 8:54:00 CDT, Stop date: 03/28/16 8:54:00 CDTNotes: (Same as: K-Dur 20) "Do Not Crush" With food and full glass of water Inactive 03/28/2016 [facility] Ambien 5 mg, 1 tab, Route: PO, Drug form: TAB, Bedtime, Dosing Weight 70.199, kg, PRN Insomnia, Start date: 03/27/16 19:22:00 CDT, Duration: 30 day, Stop date: 04/26/16 19:21:00 CDTNotes: (Same As: Ambien) No Longer Active 03/28/2016 [facility] potassium chloride 40 mEq, 2 tab, Route: PO, Drug form: ERTAB, ONCE, Dosing Weight 70.199, kg, Start date: 03/27/16 6:17:00 CDT, Stop date: 03/27/16 6:17:00 CDTNotes: (Same as: K-Dur 20) "Do Not Crush" With food and full glass of water Inactive 03/27/2016 [facility] Simvastatin 20 mg, 1 tab, Route: PO, Drug form: TAB, Bedtime, Dosing Weight 70.199, kg, Start date: 03/26/16 21:00:00 CDT, Duration: 30 day, Stop date: 04/24/16 21:00:00 CDTNotes: (Same as: Zocor) No Longer Active 03/27/2016 [facility] Aspirin 81 MG Enteric Coated Tablet 81 mg, 1 tab, Route: PO, Drug form: ECTAB, Daily, Dosing Weight 70.199, kg, Start date: 03/26/16 9:00:00 CDT, Duration: 30 day, Stop date: 04/24/16 9:00:00 CDTNotes: Do not crush or chew. (Same As: Ecotrin) No Longer Active 03/26/2016 [facility] Insulin, Aspart, Human 3 unit, 0.03 mL, Route: SUB-Q, Drug form: SOLN, TID-Before Meals, Dosing Weight 70.199, kg, PRN Blood Glucose Results, Start date: 03/26/16 7:52:00 CDT, Duration: 30 day, Stop date: 04/25/16 7:51:00 CDTNotes: Roll in palms of hands gently; Do not shake vigorously. (Same as: NovoLOG) "single patient use only" WASTE: F/P - Black; E - Municipal Trash Bin Stable for 28 days at room temperature. Expires in days from Date No Longer Active 03/26/2016 [facility] Dextrose 50% Syringe 25 gm, 50 mL, Route: IVP, Drug Form: INJ, Dosing Weight 70.199, kg, PRN, PRN Blood Glucose Results, Start date: 03/26/16 7:52:00 CDT, Duration: 30 day, Stop date: 04/25/16 7:51:00 CDT No Longer Active 03/26/2016 [facility] Glucagon 1 mg, Route: IM, Drug form: PDR/INJ, PRN, Dosing Weight 70.199, kg, PRN Blood Glucose Results, Start date: 03/26/16 7:52:00 CDT, Duration: 30 day, Stop date: 04/25/16 7:51:00 CDT No Longer Active 03/26/2016 [facility] Zofran 4 mg, 1 tab, Route: PO, Drug form: TAB, Q8H, Dosing Weight 70.199, kg, PRN Nausea, Start date: 03/26/16 7:50:00 CDT, Duration: 30 day, Stop date: 04/25/16 7:49:00 CDTNotes: (Same as: Zofran) No Longer Active 03/26/2016 [facility] tramadol 50 mg oral tablet 50 mg, 1 tab, Route: PO, Drug form: TAB, Q8H, PRN Pain Score 1-5, Start date: 03/26/16 7:34:00 CDT, Duration: 30 day, Stop date: 04/25/16 7:33:00 CDTNotes: Not to exceed 400mg/day. (Same As: Ultram) No Longer Active 03/26/2016 [facility] Tylenol 325 mg, 1 tab, Route: PO, Drug form: TAB, Q8H, PRN Pain Score 1-5, Start date: 03/26/16 7:34:00 CDT, Duration: 30 day, Stop date: 04/25/16 7:33:00 CDTNotes: Do not exceed 4 gm/day. (Same as: Tylenol) No Longer Active 03/26/2016 [facility] Acetaminophen 325 MG / tramadol hydrochloride 37.5 MG Oral Tablet [Ultracet] 1 tab, Route: PO, Drug Form: TAB, Dosing Weight 70.199, kg, Q8H, PRN Pain Score 1-5, Start date: 03/26/16 7:14:00 CDT, Duration: 30 day, Stop date: 04/25/16 7:13:00 CDT Inactive 03/26/2016 [facility] Acetaminophen 325 MG / tramadol hydrochloride 37.5 MG Oral Tablet [Ultracet] 1 tab, PO, Q8H, PRN Pain, # 30 tab, 0 Refill(s) No Longer Active 03/26/2016 [facility] Acetaminophen 325 MG / tramadol hydrochloride 37.5 MG Oral Tablet [Ultracet] 1 tab, PO, Q8H, PRN Pain, # 30 tab, 0 Refill(s) Active 03/26/2016 [facility] Fluticasone propionate 0.05 MG/ACTUAT Dry Powder Inhaler 50 microgram=1 ea, INHALATION, BID, # 180 ea, 0 Refill(s) Active 03/26/2016 [facility] Glipizide 5 MG Oral Tablet 5 mg=1 tab, PO, BID-Before Meals, # 30 tab, 1 Refill(s) Active 03/26/2016 [facility] ferrous sulfate 325 MG Oral Tablet 325 mg=1 tab, PO, Daily, 0 Refill(s) Active 03/26/2016 [facility] enalapril 10 mg oral tablet 10 mg=1 tab, PO, BID, 0 Refill(s) Active 03/26/2016 [facility] simvastatin 20 mg oral tablet 20 mg=1 tab, PO, Bedtime, # 30 tab, 1 Refill(s) Active 03/26/2016 [facility] omeprazole 40 mg oral delayed release capsule 40 mg=1 cap, PO, Daily, # 30 cap, 0 Refill(s) Active 03/26/2016 [facility] Aspirin 81 MG Enteric Coated Tablet 81 mg=1 tab, PO, Daily, # 90 tab, 3 Refill(s) Active 03/26/2016 [facility] Furosemide 20 MG Oral Tablet 20 mg=1 tab, PO, BID, 0 Refill(s) No Longer Active 03/26/2016 [facility] Metolazone 2.5 MG Oral Tablet 2.5 mg=1 tab, PO, Daily, # 30 tab, 0 Refill(s) No Longer Active 03/26/2016 [facility] minocycline 100 mg oral tablet 100 mg=1 tab, PO, Q12H, 0 Refill(s) No Longer Active 03/26/2016 [facility] loratadine 10 mg oral tablet 10 mg=1 tab, PO, Daily, # 7 tab, 0 Refill(s) No Longer Active 03/26/2016 [facility] repaglinide 1 mg oral tablet 1 mg=1 tab, PO, TID-Before Meals, # 90 tab, 0 Refill(s) Active 03/26/2016 [facility] Saline Flush 0.9% 10 ml, Route: IVP, Drug Form: INJ, Dosing Weight 71.364, kg, PRN, PRN Line Flush, Start date: 03/26/16 3:59:00 CDT, Duration: 30 day, Stop date: 04/25/16 3:58:00 CDTNotes: (Same as: BD Posiflush) No Longer Active 03/26/2016 [facility] Sodium Chloride 0.154 MEQ/ML Injectable Solution 1,000 mL, Rate: 100 ml/hr, Infuse over: 10 hr, Route: IV, Dosing Weight 71.364 kg, Total Volume: 1,000, Start date: 03/26/16 3:59:00 CDT, Duration: 30 day, Stop date: 04/25/16 3:58:00 CDT No Longer Active 03/26/2016 [facility] Metronidazole 500 mg, 100 mL, Route: IVPB, Drug form: INJ, [id number], Dosing Weight 71.364, kg, Priority: STAT, Start date: 03/26/16 3:59:00 CDT, Duration: 30 day, Stop date: 04/24/16 21:59:00 CDTNotes: (Same as: Flagyl) Avoid alcohol. No Longer Active 03/26/2016 [facility] Cipro 400 mg, 200 mL, Route: IVPB, Drug form: INJ, [id number], Dosing Weight 71.364, kg, Priority: STAT, Start date: 03/26/16 3:59:00 CDT, Duration: 30 day, Stop date: 04/24/16 15:59:00 CDTNotes: Do not refrigerate No Longer Active 03/26/2016 [facility] Ondansetron 4 mg, 2 mL, Route: IVP, Drug form: INJ, Q6H, Dosing Weight 71.364, kg, PRN Nausea & Vomiting, Start date: 03/26/16 3:59:00 CDT, Duration: 30 day, Stop date: 04/25/16 3:58:00 CDTNotes: (Same as: Zofran) MEDICATION WASTE Product Size: 4 mg Product Wasted: ___ mg No Longer Active 03/26/2016 [facility] Morphine 4 mg, 2 mL, Route: IVP, Drug form: INJ, Q3H, Dosing Weight 71.364, kg, PRN Pain Score 4-6, Start date: 03/26/16 3:59:00 CDT, Duration: 30 day, Stop date: 04/25/16 3:58:00 CDTNotes: (Same as:MORPhine Sulfate) No Longer Active 03/26/2016 [facility] Morphine 4 mg, Route: IVP, ONCE, Dosing Weight 71.364, kg, Start date: 03/26/16 0:59:00 CDT, Stop date: 03/26/16 0:59:00 CDT Inactive 03/26/2016 [facility] potassium chloride 10 mEq, 100 mL, Route: IVPB, Drug form: INJ, Q1H, Dosing Weight 71.364, kg, Total Dose=60 meq, Start date: 03/25/16 23:00:00 CDT, Duration: 6 doses or times, Stop date: 03/26/16 4:00:00 CDT, Peripheral LineNotes: Infuse at a rate of 10 mEq/hr. (Same as: KCL) No Longer Active 03/26/2016 [facility] Sodium Chloride 0.154 MEQ/ML Injectable Solution 1,000 mL, Rate: 75 ml/hr, Infuse over: 13.3 hr, Route: IV, Dosing Weight 71.364 kg, Total Volume: 1,000, Priority: STAT, Start date: 03/25/16 22:38:00 CDT, Duration: 1 doses or times, Stop date: 03/26/16 11:55:00 CDT Inactive 03/26/2016 [facility] Ondansetron 4 mg, 2 mL, Route: IVP, Drug form: INJ, ONCE, Dosing Weight 71.364, kg, Priority: STAT, Start date: 03/25/16 22:38:00 CDT, Stop date: 03/25/16 22:38:00 CDTNotes: (Same as: Zofran) MEDICATION WASTE Product Size: 4 mg Product Wasted: ___ mg Inactive 03/26/2016 [facility] Morphine 4 mg, 2 mL, Route: IVP, Drug form: INJ, ONCE, Dosing Weight 71.364, kg, Priority: STAT, Start date: 03/25/16 22:38:00 CDT, Stop date: 03/25/16 22:38:00 CDTNotes: (Same as:MORPhine Sulfate) Inactive 03/26/2016 [facility] Potassium Chloride 1.33 MEQ/ML Oral Solution 40 mEq, 30 mL, Route: PO, Drug form: LIQ, ONCE, Dosing Weight 71.364, kg, Priority: STAT, Start date: 03/25/16 22:38:00 CDT, Stop date: 03/25/16 22:38:00 CDTNotes: (Same as: Potassium Chloride) Inactive 03/26/2016 [facility] Omeprazole 20 mg, Route: PO, Drug form: DRC, Daily, Dosing Weight 77.727, kg, Start date: 03/24/14 9:00:00, Duration: 30 day, Stop date: 04/22/14 9:00:00 No Longer Active 03/24/2014 [facility] Loratadine 10 mg, 1 tab, Route: PO, Drug form: TAB, Daily, Dosing Weight 77.727, kg, Start date: 03/24/14 9:00:00, Duration: 30 day, Stop date: 04/22/14 9:00:00Notes: 1 hr before meals (Same as: Claritin) No Longer Active 03/24/2014 [facility] Fish Oil 1,000 mg, Route: PO, Drug form: CAP, Daily, Dosing Weight 77.727, kg, Start date: 03/24/14 9:00:00, Duration: 30 day, Stop date: 04/22/14 9:00:00 No Longer Active 03/24/2014 [facility] Enalapril 20 mg, 1 tab, Route: PO, Drug form: TAB, Daily, Dosing Weight 77.727, kg, Start date: 03/24/14 9:00:00, Duration: 30 day, Stop date: 04/22/14 9:00:00Notes: (Same as: Vasotec) No Longer Active 03/24/2014 [facility] Fish Oil PT's Own Med Fish Oil PT's Own Med, 1,000 mg, Drug form: MISC, Route: PO, Daily, 03/24/14 9:00:00, Duration: 30 day, Stop date: 04/22/14 9:00:00 No Longer Active 03/24/2014 [facility] Simvastatin 20 mg, 1 tab, Route: PO, Drug form: TAB, Bedtime, Dosing Weight 77.727, kg, Start date: 03/23/14 21:00:00, Duration: 30 day, Stop date: 04/21/14 21:00:00Notes: (Same as: Zocor) Inactive 03/24/2014 [facility] Atenolol 50 MG Oral Tablet 50 mg, 1 tab, Route: PO, Drug form: TAB, BID, Dosing Weight 77.727, kg, Start date: 03/23/14 21:00:00, Duration: 30 day, Stop date: 04/22/14 9:00:00Notes: (Same As:Tenormin) Inactive 03/24/2014 [facility] Metformin hydrochloride 500 MG Oral Tablet 500 mg, 1 tab, Route: PO, Drug form: TAB, BID-Meals, Dosing Weight 77.727, kg, Start date: 03/23/14 17:00:00, Duration: 30 day, Stop date: 04/22/14 8:00:00Notes: (Same as: Glucophage) Take with meal Inactive 03/23/2014 [facility] Glyburide 6 mg, 2 tab, Route: PO, Drug form: TAB, BID-Meals, Dosing Weight 77.727, kg, Start date: 03/23/14 17:00:00, Duration: 30 day, Stop date: 04/22/14 8:00:00Notes: (Same as: Glynase) Take with meals. Inactive 03/23/2014 [facility] Protonix 40 mg, 1 tab, Route: PO, Drug form: ECTAB, Before Dinner, Start date: 03/23/14 16:30:00, Duration: 30 day, Stop date: 04/21/14 16:30:00Notes: Tablet should not be chewed or crushed. (Same as: Protonix) Inactive 03/23/2014 [facility] NURSE: Please bring PT's home med to Pharmacy to be verified NURSE: Please bring PT's home med to Pharmacy to be verified, 1, Drug form: MISC, Route: MISC, TID, 03/23/14 15:00:00, Duration: 30 day, Stop date: 04/22/14 9:00:00 Inactive 03/23/2014 [facility] 120 ACTUAT Fluticasone propionate 0.05 MG/ACTUAT Nasal Inhaler [Flonase] 1 spray, NASAL, BID, # 16 gm, 0 Refill(s) Active 03/23/2014 [facility] Amoxicillin 500 MG / Clavulanate 125 MG Oral Tablet [Augmentin 500-mg] 1 tab, PO, BID, # 30 tab, 0 Refill(s) Active 03/23/2014 [facility] Acetaminophen 325 MG / butalbital 50 MG / Caffeine 40 MG Oral Tablet [Fioricet] 1 tab, PO, Q4H, Headache, # 30 tab, 0 Refill(s) Active 03/23/2014 [facility] Aspirin 81 MG Enteric Coated Tablet 81 mg, 1 tab, Route: PO, Drug form: ECTAB, Daily, Dosing Weight 77.727, kg, Start date: 03/23/14 12:00:00, Duration: 30 day, Stop date: 04/22/14 9:00:00Notes: Do not crush or chew. (Same As: Ecotrin) Inactive 03/23/2014 [facility] Enoxaparin 40 mg, 0.4 mL, Route: SUB-Q, Drug form: INJ, [id number], Dosing Weight 77.727, kg, Start date: 03/23/14 10:00:00, Duration: 30 day, Stop date: 04/21/14 10:00:00Notes: (Same as: Lovenox) Inactive 03/23/2014 [facility] nitroglycerin 0.4 mg sublingual tablet 0.4 mg, 1 tab, Route: SL, Drug form: TAB, Q5Min, PRN Chest Pain, Start date: 03/23/14 0:48:00, Duration: 30 day, Stop date: 04/22/14 0:47:00Notes: (Same as:Nitroquick, Nitrostat) "Do Not Crush" Sublingual tablet Inactive 03/23/2014 [facility] atropine 0.5 mg, 5 mL, Route: IVP, Drug form: INJ, PRN, PRN Bradycardia, Start date: 03/23/14 0:48:00, Duration: 30 day, Stop date: 04/22/14 0:47:00 Inactive 03/23/2014 [facility] Sodium Chloride 0.154 MEQ/ML Injectable Solution 1,000 mL, Rate: 75 ml/hr, Infuse over: 13.3 hr, Route: IV, Dosing Weight 77.727 kg, Total Volume: 1,000, Start date: 03/23/14 0:31:00, Duration: 30 day, Stop date: 04/22/14 0:30:00 Inactive 03/23/2014 [facility] Saline Flush 0.9% 5 ml, Route: IVP, Drug Form: INJ, Dosing Weight 77.727, kg, PRN, PRN Line Flush, Start date: 03/23/14 0:31:00, Duration: 30 day, Stop date: 04/22/14 0:30:00Notes: (Same as: BD Posiflush) Inactive 03/23/2014 [facility] Furosemide 40 MG Oral Tablet 40 mg=1 tab, PO, Daily No Longer Active 03/23/2014 [facility] Potassium Chloride 10 MEQ Extended Release Tablet 10 mEq=1 tab, PO, QID No Longer Active 03/23/2014 [facility] enalapril 20 mg oral tablet 20 mg=1 tab, PO, Daily Active 03/23/2014 [facility] Fish Oil 1000 mg oral capsule 1,000 mg=1 cap, PO, Daily Active 03/23/2014 [facility] Aspirin 81 MG Enteric Coated Tablet 81 mg=1 tab, PO, Daily Active 03/23/2014 [facility] glyBURIDE micronized 6 mg oral tablet 6 mg=1 tab, PO, BID Active 03/23/2014 [facility] Atenolol 50 MG Oral Tablet 50 mg=1 tab, PO, BID Active 03/23/2014 [facility] Metformin hydrochloride 500 MG Oral Tablet 500 mg=1 tab, PO, BID Active 03/23/2014 [facility] simvastatin 20 mg oral tablet 20 mg=1 tab, PO, Bedtime Active 03/23/2014 [facility] omeprazole 20 mg oral delayed release capsule 20 mg=1 cap, PO, Daily Active 03/23/2014 [facility] loratadine 10 mg oral tablet 10 mg=1 tab, PO, Daily Active 03/23/2014 [facility] Reglan 10 mg, 2 mL, Route: IVP, Drug form: INJ, ONCE, Dosing Weight 77.727, kg, Priority: STAT, Start date: 03/22/14 20:14:00, Stop date: 03/22/14 20:14:00Notes: (Same as: Reglan) Inactive 03/23/2014 [facility] Allergies, Adverse Reactions, Alerts Substance Category Reaction Severity Reaction type Status Date Reported Comments Source clindamycin<sup>1</sup> Assertion nausea Propensity to adverse reactions to drug Active Data migrated from [employer] on 05/22/15. Originally documented as CLINDAMYCIN HCL. nausea Medical [facility] Immunizations Immunization Date Given Site Status Last Updated Comments Source influenza virus vaccine, inactivated<sup>1</sup> 08/18/2018 completed Jack Location History: [facility] influenza virus vaccine, inactivated 07/20/2017 Right Deltoid completed [facility] pneumococcal 13-valent vaccine<sup>2</sup> 07/06/2016 completed Jack Location History: [facility] Hx influenza vaccine-unspecified<sup>3</sup> 07/06/2016 completed Jack Location History: [facility] zoster vaccine live<sup>5</sup> 07/06/2016 completed Jack Location History: Pharmacy [facility] pneumococcal 13-valent vaccine<sup>4</sup> 07/06/2016 completed Jack Location History: Pharmacy [facility] Hx influenza vaccine-unspecified<sup>1</sup> 07/06/2016 completed Jack Location History: Pharmacy [facility] Hx influenza vaccine-unspecified<sup>4</sup> 07/06/2016 completed Jack Location History: [facility] zoster vaccine live<sup>3</sup> 07/06/2016 completed Jack Location History: [facility] pneumococcal 13-valent vaccine<sup>6</sup> 07/06/2016 completed Jack Location History: Pharmacy [facility] pneumococcal 13-valent vaccine<sup>3</sup> 07/06/2016 completed Jack Location History: Pharmacy [facility] zoster vaccine live<sup>6</sup> 07/06/2016 completed Jack Location History: Pharmacy [facility] influenza virus vaccine, inactivated 08/19/2015 Left deltoid completed [facility], [facility] Hx influenza vaccine-unspecified<sup>4</sup> 07/24/2014 completed GE Result Comment: done. Migrated from OBS ; Data migrated from [employer] on 12/16/2015. [facility] Hx influenza vaccine-unspecified<sup>2</sup> 07/24/2014 completed GE Result Comment: done. Migrated from OBS ; Data migrated from [employer] on 12/16/2015. [facility] Hx influenza vaccine-unspecified<sup>1</sup> 07/24/2014 completed GE Result Comment: done. Migrated from OBS ; Data migrated from [employer] on 12/16/2015. [facility] Hx influenza vaccine-unspecified<sup>5</sup> 07/24/2014 completed GE Result Comment: done. Migrated from OBS ; Data migrated from [employer] on 12/16/2015. [facility] influenza virus vaccine, inactivated<sup>1</sup> 07/24/2014 Left Deltoid completed GE Result Comment: fluzone high dose [[id number]]. Migrated from OBS ; Data migrated from [employer] on 12/16/2015. [facility] influenza virus vaccine, inactivated<sup>3</sup> 07/24/2014 Left Deltoid completed GE Result Comment: fluzone high dose [[id number]]. Migrated from OBS ; Data migrated from [employer] on 12/16/2015. [facility] influenza virus vaccine, inactivated<sup>2</sup> 07/24/2014 Left Deltoid completed GE Result Comment: fluzone high dose [[id number]]. Migrated from OBS ; Data migrated from [employer] on 12/16/2015. [facility] [place] influenza virus vaccine, inactivated<sup>2</sup> 07/24/2014 Left Deltoid completed GE Result Comment: fluzone high dose [[id number]]. Migrated from OBS ; Data migrated from [employer] on 12/16/2015. [facility] influenza virus vaccine, inactivated<sup>2</sup> 07/24/2014 Left Deltoid completed GE Result Comment: fluzone high dose [[id number]]. Migrated from OBS ; Data migrated from [employer] on 12/16/2015. [facility] influenza virus vaccine, inactivated<sup>2</sup> 07/24/2014 Left Deltoid completed GE Result Comment: fluzone high dose [[id number]]. Migrated from OBS ; Data migrated from [employer] on 12/16/2015. [facility] Results Order Name Results Value Reference Range Date Interpretation Comments Source HEMATOLOGY Hgb 14.2 g/dL 14.0 - 18.0 03/21/2019 [facility] HEMATOLOGY Hct 41.8 % 42.0 - 54.0 03/21/2019 [facility] ELECTROLYTES AGAP 10.2 meq/L 10.0 - 20.0 03/20/2019 [facility] ELECTROLYTES Potassium Lvl 4.2 meq/L 3.5 - 5.1 03/20/2019 [facility] ELECTROLYTES Sodium Lvl 140 meq/L 135 - 145 03/20/2019 [facility] ELECTROLYTES Creatinine Lvl 1.30 mg/dL 0.50 - 1.40 03/20/2019 [facility] ELECTROLYTES BUN 12 mg/dL 7 - 22 03/20/2019 [facility] ELECTROLYTES eGFR 53 mL/min/1.73m2 03/20/2019 Result Comment: The eGFR is calculated using the [...] from the National Kidney Disease Education Program (NKDEP) which additionally recommends that when the eGFR is used in patients with extremes of body mass index for purposes of drug dosing, the eGFR should be multiplied by the estimated BMI. [facility] ELECTROLYTES Glucose Lvl 242 mg/dL 70 - 99 03/20/2019 [facility] ELECTROLYTES Calcium Lvl 9.3 mg/dL 8.5 - 10.5 03/20/2019 [facility] ELECTROLYTES CO2 27 meq/L 24 - 32 03/20/2019 [facility] ELECTROLYTES Chloride Lvl 107 meq/L 95 - 109 03/20/2019 [facility] HEMATOLOGY PT 14.1 s 12.0 - 14.7 03/20/2019 [facility] HEMATOLOGY INR 1.11 0.85 - 1.17 03/20/2019 [facility] HEMATOLOGY PTT 30.2 s 22.9 - 35.8 03/20/2019 [facility] HEMATOLOGY Basophils 0.1 % 0.0 - 1.0 03/20/2019 [facility] HEMATOLOGY Lymphocytes 5.3 % 20.0 - 40.0 03/20/2019 [facility] HEMATOLOGY Segs 90.4 % 45.0 - 75.0 03/20/2019 [facility] HEMATOLOGY Monocytes 4.2 % 2.0 - 12.0 03/20/2019 [facility] HEMATOLOGY Lymphocytes # 1.0 K/CMM 1.0 - 5.5 03/20/2019 [facility] HEMATOLOGY Neutrophils # 17.2 K/CMM 1.5 - 8.1 03/20/2019 [facility] HEMATOLOGY Monocytes # 0.8 K/CMM 0.0 - 0.8 03/20/2019 [facility] HEMATOLOGY MPV 7.6 fL 7.4 - 10.4 03/20/2019 [facility] HEMATOLOGY RDW 13.7 % 11.5 - 14.5 03/20/2019 [facility] HEMATOLOGY MCV 94.3 fL 80.0 - 94.0 03/20/2019 [facility] HEMATOLOGY Platelet 197 K/CMM 133 - 450 03/20/2019 [facility] HEMATOLOGY MCHC 32.8 g/dL 32.0 - 36.0 03/20/2019 [facility] HEMATOLOGY Hct 47.9 % 42.0 - 54.0 03/20/2019 [facility] HEMATOLOGY Hgb 15.7 g/dL 14.0 - 18.0 03/20/2019 [facility] HEMATOLOGY RBC 5.08 M/CMM 4.70 - 6.10 03/20/2019 [facility] HEMATOLOGY MCH 30.9 pg 27.0 - 31.0 03/20/2019 [facility] HEMATOLOGY WBC 19.0 K/CMM 3.7 - 10.4 03/20/2019 [facility] Ablation Radio Freq CT Ablation Radio Freq CT PROCEDURE: Image-guided cryoablation Procedural Personnel Attending physician(s): Chetan Whittaker MD Fellow physician(s): None Resident physician(s): None Advanced practice provider(s): None Pre-procedure diagnosis: RCC Post-procedure diagnosis: RCC Indication: 73-year-old with single kidney and left 4 cm biopsy-proven RCC request is for ablation Additional clinical history: None Complications: No immediate complications. IMPRESSION: Percutaneous cryoablation of left kidney lower pole mass. PLAN: 1. Admission overnight under the hospitalist service for pain management and observation for delayed bleeding. 2. Repeat H\\T\\H at 2100 hrs and 0600 hrs. 3. If stable Bates can be removed in the morning and if able to urinate can be discharged. 4. Appears to have had post obstructive diuresis after Bates was placed for the procedure (??Recurrence of HASSAN from prostate Ca) 5. Can be discharged home on Levaquin 750 mg once daily for 5 days 6. Follow up with Dr Reyes in about 3 weeks for stent removal. 7. Repeat CT abdomen in 3 months to evaluate treatment and follow up in my [facility] 8. IR will also follow while an inpatient PROCEDURE SUMMARY: - Target organ: Left kidney - Image-guided biopsy of target lesion (QCDR): Performed previously - Image-guided cryoablation - Additional procedure(s): None PROCEDURE DETAILS: Pre-procedure Consent: Informed consent for the procedure including risks, benefits and alternatives was obtained and time-out was performed prior to the procedure. Preparation: The site was prepared and draped using maximal sterile barrier technique including cutaneous antisepsis. Anesthesia/sedation Level of anesthesia/sedation: General anesthesia Anesthesia/sedation administered by: Anesthesiology Imaging prior to intervention The patient was positioned prone. Initial imaging was performed. Target #1: - Maximal diameter (cm): 4.1 - Location: Left kidney lower pole Cryoablation Under CT and ultrasound guidance, the ablation applicator(s) were advanced and positioned within the target(s). For each target lesion the applicators were placed and repositioned as necessary to achieve the desired ablation zone. Ablation applicator: Gallil Target #1: - Therapeutic intent (QCDR): Curative - Number of applicators: 4 Freeze Cycle 1: - Freeze duration (minutes): 12. - Maximum intensity applied (percent): 100 Thaw Cycle 1: - Thaw duration (minutes): 6 - Thaw cycle type: Active thaw Freeze Cycle 2: - Freeze duration (minutes): 12. - Maximum intensity applied (percent): 100 Thaw Cycle 2: - Thaw duration (minutes): 6 - Thaw cycle type: Active thaw Applicator removal The ablation applicator(s) were removed and sterile bandages were applied. Imaging following ablation Post-ablation imaging: Contrast-enhanced CT Post-ablation imaging findings: Minimal retroperitoneal hematoma which is stable on subsequent imaging. Radiation Dose CT dose length product (mGy-cm): 1853 Additional Details Additional description of procedure: None Equipment details: None Specimens removed: None Estimated blood loss (mL): Less than 10 Standardized report: [email or web address] Attestation Signer name: Chetan Whittaker MD I attest that I was present for the entire procedure. I reviewed the stored images and agree with the report as written. 03/20/2019 - - Read by: Chetan Whittaker Dictated Date/time: 03/20/19 16:36 Electronically Signed by: Chetan Whittaker 03/20/19 16:50 FINAL REPORT [facility] Guided Needle BX/Asp/Inj/NeedLoc US Guided Needle BX/Asp/Inj/NeedLoc US PROCEDURE: Image-guided cryoablation Procedural Personnel Attending physician(s): Chetan Whittaker MD Fellow physician(s): None Resident physician(s): None Advanced practice provider(s): None Pre-procedure diagnosis: RCC Post-procedure diagnosis: RCC Indication: 73-year-old with single kidney and left 4 cm biopsy-proven RCC request is for ablation Additional clinical history: None Complications: No immediate complications. IMPRESSION: Percutaneous cryoablation of left kidney lower pole mass. PLAN: 1. Admission overnight under the hospitalist service for pain management and observation for delayed bleeding. 2. Repeat H\\T\\H at 2100 hrs and 0600 hrs. 3. If stable Bates can be removed in the morning and if able to urinate can be discharged. 4. Appears to have had post obstructive diuresis after Bates was placed for the procedure (??Recurrence of HASSAN from prostate Ca) 5. Can be discharged home on Levaquin 750 mg once daily for 5 days 6. Follow up with Dr Reyes in about 3 weeks for stent removal. 7. Repeat CT abdomen in 3 months to evaluate treatment and follow up in my [facility] 8. IR will also follow while an inpatient PROCEDURE SUMMARY: - Target organ: Left kidney - Image-guided biopsy of target lesion (QCDR): Performed previously - Image-guided cryoablation - Additional procedure(s): None PROCEDURE DETAILS: Pre-procedure Consent: Informed consent for the procedure including risks, benefits and alternatives was obtained and time-out was performed prior to the procedure. Preparation: The site was prepared and draped using maximal sterile barrier technique including cutaneous antisepsis. Anesthesia/sedation Level of anesthesia/sedation: General anesthesia Anesthesia/sedation administered by: Anesthesiology Imaging prior to intervention The patient was positioned prone. Initial imaging was performed. Target #1: - Maximal diameter (cm): 4.1 - Location: Left kidney lower pole Cryoablation Under CT and ultrasound guidance, the ablation applicator(s) were advanced and positioned within the target(s). For each target lesion the applicators were placed and repositioned as necessary to achieve the desired ablation zone. Ablation applicator: Gallil Target #1: - Therapeutic intent (QCDR): Curative - Number of applicators: 4 Freeze Cycle 1: - Freeze duration (minutes): 12. - Maximum intensity applied (percent): 100 Thaw Cycle 1: - Thaw duration (minutes): 6 - Thaw cycle type: Active thaw Freeze Cycle 2: - Freeze duration (minutes): 12. - Maximum intensity applied (percent): 100 Thaw Cycle 2: - Thaw duration (minutes): 6 - Thaw cycle type: Active thaw Applicator removal The ablation applicator(s) were removed and sterile bandages were applied. Imaging following ablation Post-ablation imaging: Contrast-enhanced CT Post-ablation imaging findings: Minimal retroperitoneal hematoma which is stable on subsequent imaging. Radiation Dose CT dose length product (mGy-cm): 1853 Additional Details Additional description of procedure: None Equipment details: None Specimens removed: None Estimated blood loss (mL): Less than 10 Standardized report: [email or web address] Attestation Signer name: Chetan Whittaker MD I attest that I was present for the entire procedure. I reviewed the stored images and agree with the report as written. 03/20/2019 - - Read by: Chetan Whittaker Dictated Date/time: 03/20/19 16:51 Electronically Signed by: Chetan Whittaker 03/20/19 16:51 FINAL REPORT [facility] HEMATOLOGY PTT 35.9 s 22.9 - 35.8 03/13/2019 [facility] HEMATOLOGY INR 1.14 0.85 - 1.17 03/13/2019 [facility] HEMATOLOGY PT 14.4 s 12.0 - 14.7 03/13/2019 [facility] Renal pyelogram retrograde DX Renal pyelogram retrograde DX Patient Name: GILLIAN REGALADO : 1945; Age: 73 years Male MR: [id number] Study: Renal pyelogram retrograde DX Order Time: 03/06/2019 8:20 CDT CLINICAL INDICATION: - Time 27.7 sec Dose 5.63 mGy. COMPARISON: None. FLUOROSCOPY TIME: 27.7 seconds, 5.63 mGy reference air kerma FINDINGS: Limited intraoperative fluoroscopic images provided for retrograde pyelography. Initial contrast administration demonstrates mild left pelviectasis. Subsequent left ureteral stent placement. Refer to operative report for full details. SL: [id number] 03/06/2019 - - Read by: Rao Bray MD Dictated Date/time: 03/06/19 08:26 Electronically Signed by: Rao Bray MD 03/06/19 08:28 FINAL REPORT [facility] CHEM PANEL eGFR 57 mL/min/1.73m2 03/01/2019 Result Comment: The eGFR is calculated using the [...] from the National Kidney Disease Education Program (NKDEP) which additionally recommends that when the eGFR is used in patients with extremes of body mass index for purposes of drug dosing, the eGFR should be multiplied by the estimated BMI. [facility] CHEM PANEL Glucose Lvl 207 mg/dL 70 - 99 03/01/2019 [facility] Chloride Lvl 104 meq/L 95 - 109 03/01/2019 [facility] PAN[facility] Potassium Lvl 4.8 meq/L 3.5 - 5.1 03/01/2019 [facility] PAN[facility] Sodium Lvl 137 meq/L 135 - 145 03/01/2019 [facility] Creatinine Lvl 1.24 mg/dL 0.50 - 1.40 03/01/2019 [facility]M PANEL BUN 15 mg/dL 7 - 22 03/01/2019 [facility] CHEM PANEL Calcium Lvl 9.9 mg/dL 8.5 - 10.5 03/01/2019 [facility] CHEM PANEL CO2 28 meq/L 24 - 32 03/01/2019 [facility] CHEM PANEL AGAP 9.8 meq/L 10.0 - 20.0 03/01/2019 [facility] HEMATOLOGY MCHC 34.2 g/dL 32.0 - 36.0 03/01/2019 [facility] MCH 31.8 pg 27.0 - 31.0 03/01/2019 [facility] HEMATOLOGY RDW 13.1 % 11.5 - 14.5 03/01/2019 [facility] HEMATOLOGY Platelet 211 K/CMM 133 - 450 03/01/2019 [facility] HEMATOLOGY MPV 7.4 fL 7.4 - 10.4 03/01/2019 [facility] HEMATOLOGY RBC 4.87 M/CMM 4.70 - 6.10 03/01/2019 [facility] HEMATOLOGY Hct 45.3 % 42.0 - 54.0 03/01/2019 [facility] HEMATOLOGY Hgb 15.5 g/dL 14.0 - 18.0 03/01/2019 [facility] MCV 92.9 fL 80.0 - 94.0 03/01/2019 [facility] HEMATOLOGY WBC 8.8 K/CMM 3.7 - 10.4 03/01/2019 [facility] HEMATOLOGY Basophils # 0.1 K/CMM 0.0 - 0.2 03/01/2019 [facility] HEMATOLOGY Segs 71.0 % 45.0 - 75.0 03/01/2019 [facility] HEMATOLOGY Lymphocytes 19.3 % 20.0 - 40.0 03/01/2019 [facility] HEMATOLOGY Monocytes 8.8 % 2.0 - 12.0 03/01/2019 [facility] HEMATOLOGY Eosinophils 0.2 % 0.0 - 4.0 03/01/2019 [facility] HEMATOLOGY Neutrophils # 6.3 K/CMM 1.5 - 8.1 03/01/2019 [facility] HEMATOLOGY Basophils 0.7 % 0.0 - 1.0 03/01/2019 [facility] HEMATOLOGY Lymphocytes # 1.7 K/CMM 1.0 - 5.5 03/01/2019 [facility] HEMATOLOGY Monocytes # 0.8 K/CMM 0.0 - 0.8 03/01/2019 [facility] SPECIAL CHEMISTRY Hgb A1C 7.9 % <=5.6 % 03/01/2019 [facility] Biopsy kidney VR Biopsy kidney VR Patient Name: GILLIAN REGALADO : 1945; Age: 73 years Male MR: [id number] PROCEDURE: 1. Ultrasound-guided biopsy of a left kidney mass 2. Moderate sedation CLINICAL INFORMATION: History of renal cell carcinoma, left renal mass COMPARISON: CT on 09/26/2018, PET CT on 10/17/2018 CONSENT: The procedure, risks, benefits and alternatives were discussed with the patient and written informed consent was obtained. A "time out" was performed per protocol prior to the procedure. 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 The patient was continuously monitored by a nurse using automated blood pressure, electrocardiogram, and pulse oximetry. The moderate sedation record is permanently stored in the hospital information system. The personal supervised moderate sedation time was 30 minutes. Medications administered: Versed 2 mg IV and Fentanyl 150 mcg IV. The patient was placed in a prone position on the stretcher. Preprocedure ultrasound was used to identify the left renal mass (2.4 x 2 cm) that appears partially cystic. The left flank was prepped and draped with sterile technique and the skin was anesthetized with 1% lidocaine. Under sterile ultrasound guidance, a 17-gauge introducer needle was advanced into the left renal mass. Subsequently, 6 core biopsies (18-gauge, 2 cm) were obtained of the left renal mass using a coaxial technique. The needles were removed and sterile dressing applied. Postprocedure imaging demonstrated no immediate complication. Patient tolerated the procedure well and transferred to the recovery room in stable condition. IMPRESSION: Successful ultrasound-guided biopsy of the left renal mass. SL: [id number] 12/27/2018 - - Read by: Rao Bray MD Dictated Date/time: 12/27/18 15:38 Electronically Signed by: Rao Bray MD 12/27/18 15:41 FINAL REPORT [facility] PET CT Tumor imaging initial skull-midth PET CT Tumor imaging initial skull-midth PET CT Tumor imaging initial skull-midth TECHNIQUE: 14.7 mCis of FDG were administered intravenously and a series of overlapping images were obtained from the skull base to the proximal thighs utilizing a PET/CT hybrid device. The CT was utilized for attenuation correction and anatomic correlation and not as an independent diagnostic study. BLOOD GLUCOSE: 172 mg/dl COMPARISON: CT abdomen pelvis 09/26/2018 CLINICAL HISTORY: Renal adenocarcinoma; EGW=825.74 mGy*cm CTDIvol=6.04 mGy FINDINGS: HEAD AND NECK: No abnormal activity is visualized CHEST: Moderate cardiomegaly. No abnormal activity is noted. ABDOMEN AND PELVIS: Corresponding to the heterogeneously enhancing lesion lower portion left kidney, there is no significant increase in metabolic activity noted in the pelvis. Physiologic activity is otherwise visualized in the solid organs, genitourinary tract and gastrointestinal tract. MUSCULOSKELETAL: No abnormal activity is visualized. IMPRESSION: No increase in metabolic activity is noted corresponding to the heterogeneously enhancing lesion in the lower pole of left kidney. This does not exclude malignancy. However, before proceeding to biopsy of this lesion, consideration should be given to MRI of the left kidney with and without contrast. SL:[id number] 10/17/2018 - - Read by: Cuco Keyes MD Dictated Date/time: 10/17/18 16:11 Electronically Signed by: Cuco Keyes MD 10/17/18 16:26 FINAL REPORT [facility] URINE AND STOOL POC UA Bili Negative *NA* (09/29/18 12:56 PM) Negative 09/29/2018 [facility] URINE AND STOOL POC UA Nit Negative *NA* (09/29/18 12:56 PM) Negative 09/29/2018 [facility] URINE AND STOOL POC UA Bld Negative *NA* (09/29/18 12:56 PM) Negative 09/29/2018 [facility] URINE AND STOOL POC UA Uro 0.2 EU/dL 0.1 - 1.0 09/29/2018 [facility] URINE AND STOOL POC UA LeukEst Trace *ABN* (09/29/18 12:56 PM) Negative 09/29/2018 [facility] URINE AND STOOL POC UA Color Yellow *NA* (09/29/18 12:56 PM) Yellow 09/29/2018 [facility] URINE AND STOOL POC UA Turbidity Clear *NA* (09/29/18 12:56 PM) Clear 09/29/2018 [facility] URINE AND STOOL POC UA Glu >=1000 mg/dL Negative mg/dL 09/29/2018 [facility] URINE AND STOOL POC UA pH 5.5 5.0 - 8.0 09/29/2018 [facility] URINE AND STOOL POC UA Ket Negative mg/dL Negative mg/dL 09/29/2018 [facility] URINE AND STOOL POC UA Prot Negative mg/dL Negative mg/dL 09/29/2018 [facility] URINE AND STOOL POC UA SG <=1.005
*NA*
(09/29/18 12:56 PM) <=1.030 09/29/2018 [facility] CHEM PANEL eGFR 59 mL/min/1.73m2 09/26/2018 Result Comment: The eGFR is calculated using the [...] from the National Kidney Disease Education Program (NKDEP) which additionally recommends that when the eGFR is used in patients with extremes of body mass index for purposes of drug dosing, the eGFR should be multiplied by the estimated BMI. [facility] CHEM PANEL POC Creatinine 1.2 mg/dL 0.5 - 1.4 09/26/2018 [facility] Abdomen/Pelvis w IV contrast CT Abdomen/Pelvis w IV contrast CT Clinical indication: - left renal mass, h/o renal cancer Comparison: CT abdomen pelvis 03/25/2016 TECHNIQUE: Volumetric CT acquisition of the abdomen and pelvis after the intravenous administration contrast. Axial, coronal and sagittal reconstructions. IV contrast: 100 mL Omnipaque 300 Enteric contrast: None. CT imaging performed at this location utilizes radiation dose optimization techniques which include one or more of the following: -Automated exposure control -Adjustment of the mA and/or kV according to patient size -Use of iterative reconstruction technique CT Radiation Dose DLP 1088 mGy-cm FINDINGS: LOWER THORAX: Pacemaker lead in the right ventricle is partially visualized. LIVER: The liver is unremarkable. BILIARY TREE: No intra- or extrahepatic biliary ductal dilation. GALLBLADDER: The gallbladder is unremarkable. PANCREAS: Normal enhancement of the pancreas. SPLEEN: Normal. ADRENALS: Normal. KIDNEYS AND URETERS: The patient is status post right nephrectomy. Postsurgical stranding/scarring in the right renal fossa is mildly decreased from the prior exam nodularity is seen within the right nephrectomy bed. The largest nodule measures 0.8 x 0.4 cm (series 3 image 35), which was not present on the prior exam. Lack of precontrast imaging limits evaluation for enhancement in this region. An heterogeneously enhancing mass is seen at the inferior pole the left kidney, measuring 2.1 x 2.5 cm (series 3 image 68). GASTROINTESTINAL TRACT: The stomach is unremarkable. The small bowel is normal in caliber. Sigmoid colonic diverticulosis is present, without CT evidence of diverticulitis. APPENDIX: Normal. PELVIS: The urinary bladder is unremarkable. The prostate is enlarged. PERITONEUM AND RETROPERITONEUM: No ascites or free air. No other fluid collection. LYMPH NODES: No abdominal or pelvic lymphadenopathy. VASCULATURE: The abdominal aorta is normal in caliber with mild atherosclerotic calcifications. The IVC is unremarkable. The left renal vein is patent. BONES: No acute osseous abnormality. Posterior spinal fixation hardware is present from L2 through L5. SOFT TISSUES: Normal. IMPRESSION: 1. A 2.1 x 2.5 cm solid enhancing lesion at the lower pole of the left kidney is suspicious for renal cell carcinoma. No evidence of renal vein invasion. 2. Status post right nephrectomy. Decreased postsurgical stranding is seen in the right nephrectomy bed with new hyperattenuating nodularity. Lack of precontrast sequences limits evaluation for enhancement on this exam. Differential considerations include local recurrent tumor in the nephrectomy bed versus postsurgical scarring/calcifications. Further evaluation with noncontrast CT abdomen and pelvis is recommended. 3. Sigmoid colonic diverticulosis. 4. Prostatomegaly. SL: ILIR 09/26/2018 - - Read by: Ana Maria Bradshaw MD Dictated Date/time: 09/26/18 13:39 Electronically Signed by: Ana Maria Bradshaw MD 09/26/18 13:51 FINAL REPORT [facility] ELECTROLYTES AGAP 17.4 meq/L 10.0 - 20.0 11/06/2016 [facility] ELECTROLYTES Glucose Lvl 243 mg/dL 70 - 99 11/06/2016 [facility] ELECTROLYTES BUN 12 mg/dL 7 - 22 11/06/2016 [facility] ELECTROLYTES Creatinine Lvl 1.20 mg/dL 0.50 - 1.40 11/06/2016 [facility] ELECTROLYTES Chloride Lvl 99 meq/L 95 - 109 11/06/2016 [facility] ELECTROLYTES CO2 20 meq/L 24 - 32 11/06/2016 [facility] ELECTROLYTES Calcium Lvl 8.9 mg/dL 8.5 - 10.5 11/06/2016 [facility] ELECTROLYTES Sodium Lvl 132 meq/L 135 - 145 11/06/2016 [facility] ELECTROLYTES Potassium Lvl 4.4 meq/L 3.5 - 5.1 11/06/2016 [facility] ELECTROLYTES eGFR 60 mL/min/1.73m2 11/06/2016 Result Comment: The eGFR is calculated using the [...] from the National Kidney Disease Education Program (NKDEP) which additionally recommends that when the eGFR is used in patients with extremes of body mass index for purposes of drug dosing, the eGFR should be multiplied by the estimated BMI. [facility] MCHC 33.6 g/dL 32.0 - 36.0 11/06/2016 [facility] MPV 7.3 fL 7.4 - 10.4 11/06/2016 [facility] RDW 13.9 % 11.5 - 14.5 11/06/2016 [facility] Platelet 211 K/CMM 133 - 450 11/06/2016 [facility] MCH 30.4 pg 27.0 - 31.0 11/06/2016 [facility] Hgb 13.5 g/dL 14.0 - 18.0 11/06/2016 [facility] MCV 90.7 fL 80.0 - 94.0 11/06/2016 [facility] Hct 40.2 % 42.0 - 54.0 11/06/2016 [facility] RBC 4.43 M/CMM 4.70 - 6.10 11/06/2016 [facility] WBC 10.0 K/CMM 3.7 - 10.4 11/06/2016 [facility] Segs-Bands # 8.9 K/CMM 1.5 - 8.1 11/06/2016 [facility] Lymphocytes 7.1 % 20.0 - 40.0 11/06/2016 [facility] Monocytes 3.6 % 2.0 - 12.0 11/06/2016 [facility] Lymphocytes # 0.7 K/CMM 1.0 - 5.5 11/06/2016 [facility] Monocytes # 0.4 K/CMM 0.0 - 0.8 11/06/2016 [facility] Segs 89.1 % 45.0 - 75.0 11/06/2016 [facility] Basophils 0.2 % 0.0 - 1.0 11/06/2016 [facility] Brain wo contrast CT Brain wo contrast CT Clinical Indication: Altered level of consciousness pt states he has a tension headache for 2 months, has been taking tramadol and baclofen but not helping Comparison: 03/22/2014 TECHNIQUE: CT images were obtained from the foramen magnum to the vertex without the use of intravenous contrast on a multidetector CT. Coronal and sagittal reconstructions were obtained. CT radiation dose DLP: 1625.73 mGy-cm FINDINGS: BRAIN PARENCHYMA: Age appropriate involutionary changes with mild small vessel ischemic changes. There are otherwise normal godinez-white interfaces, sulci and gyri. There are no focal mass lesions on this noncontrast head CT. There is no mass effect, midline shift or edema. There are no intra-axial or extra-axial fluid collections, intraventricular or intraparenchymal hemorrhage. The pineal, sellar, brainstem, cerebellum and skull base regions appear unremarkable. VENTRICLES: The lateral ventricles, third and fourth ventricles appear unremarkable. The basilar cisterns are normal. ORBITS, MASTOIDS AND PARANASAL SINUSES: Complete opacification of the right maxillary sinus with bony sclerosis suggesting and slight expansion of the medial wall suggesting a large mucocele, possibly chronic. Underlying inspissated secretions or fungal etiology suspected. Mucous retention cyst or polyp left maxillary sinus. The visualized orbits and paranasal sinuses are otherwise unremarkable. The mastoid air cells are unopacified. SKULL: There are no osseous abnormalities. If there is further concern for intracranial pathology or acute stroke, MRI of the brain may be performed for complete assessment. IMPRESSION: 1. Age appropriate involutionary changes with mild small vessel ischemic changes. 2. Mild opacification of the right ethmoid air cells suggesting sinus inflammatory disease. 3. Complete opacification of the right maxillary sinus with bony sclerosis suggesting and slight expansion of the medial wall suggesting a large mucocele, possibly chronic. Underlying inspissated secretions or fungal etiology may be present as well due to hyperdensity. This is similar to the prior study. ENT evaluation suggested. 4. Mucous retention cyst or polyp left maxillary sinus. SL: OMI 11/06/2016 - - Read by: Raffi Brandt DO Dictated Date/time: 11/06/16 00:41 Electronically Signed by: Raffi Brandt DO 11/06/16 00:51 FINAL REPORT [facility] Spine cervical wo contrast CT Spine cervical wo contrast CT Clinical Indication: Limitation of movement pt states he has a tension headache for 2 months, has been taking tramadol and baclofen but not helping Comparison: None Technique: Multi-detector CT imaging of the cervical spine is performed. Coronal and sagittal reconstructions were obtained. CT Radiation Dose DLP 1625.73 mGy-cm FINDINGS: ALIGNMENT AND GENERAL ASSESSMENT: There is normal alignment of the cervical spine. There are no fractures or subluxations. The craniocervical junction is normal. The atlanto-dental alignment appears unremarkable. The posterior elements and spinous processes are unremarkable. The facet joints are unremarkable. The spinolaminar and spinous process alignment are normal. DISK SPACES AND SOFT TISSUES: There is no prevertebral soft tissue swelling. There is no central or foraminal stenosis. Multilevel mild spondylosis with disc osteophyte complexes. MRI is the gold standard to assess for disk disease. VISUALIZED LUNG APICES: The visualized lung apices are unremarkable. CT myelogram or MRI of the cervical spine may be performed, if there is further concern. IMPRESSION: 1. No acute fracture or dislocation. 2. Multilevel spondylosis with minimal disc aspect complexes. SL: OMI 11/06/2016 - - Read by: Raffi Brandt DO Dictated Date/time: 11/06/16 00:37 Electronically Signed by: Raffi Brandt DO 11/06/16 00:40 FINAL REPORT [facility] CHEM PANEL Glucose Lvl 166 mg/dL 70 - 99 03/28/2016 [facility] CHEM PANEL Sodium Lvl 130 meq/L 135 - 145 03/28/2016 [facility] CHEM PANEL Creatinine Lvl 1.07 mg/dL 0.50 - 1.40 03/28/2016 [facility] CHEM PANEL BUN 9 mg/dL 7 - 22 03/28/2016 [facility] CHEM PANEL eGFR 69 mL/min/1.73m2 03/28/2016 Result Comment: The eGFR is calculated using the [...] from the National Kidney Disease Education Program (NKDEP) which additionally recommends that when the eGFR is used in patients with extremes of body mass index for purposes of drug dosing, the eGFR should be multiplied by the estimated BMI. [facility] CHEM PANEL CO2 22 meq/L 24 - 32 03/28/2016 [facility] CHEM PANEL Chloride Lvl 99 meq/L 95 - 109 03/28/2016 [facility] CHEM PANEL Potassium Lvl 3.2 meq/L 3.5 - 5.1 03/28/2016 [facility] CHEM PANEL Calcium Lvl 8.8 mg/dL 8.5 - 10.5 03/28/2016 [facility] CHEM PANEL AGAP 12.2 meq/L 10.0 - 20.0 03/28/2016 [facility] CHEM PANEL eGFR 60 mL/min/1.73m2 03/28/2016 Result Comment: The eGFR is calculated using the [...] from the National Kidney Disease Education Program (NKDEP) which additionally recommends that when the eGFR is used in patients with extremes of body mass index for purposes of drug dosing, the eGFR should be multiplied by the estimated BMI. [facility] CHEM PANEL Calcium Lvl 6.7 mg/dL 8.5 - 10.5 03/28/2016 [facility] CHEM PANEL AGAP 15.5 meq/L 10.0 - 20.0 03/28/2016 [facility] CHEM PANEL CO2 16 meq/L 24 - 32 03/28/2016 [facility] CHEM PANEL Glucose Lvl 1323 mg/dL 70 - 99 03/28/2016 Result Comment: Critical Result(s) called to Sandi Gabriel at 03/28/2016 05:42 by tb. Read back OK. [facility] CHEM PANEL BUN 6 mg/dL 7 - 22 03/28/2016 [facility] CHEM PANEL Potassium Lvl 2.5 meq/L 3.5 - 5.1 03/28/2016 [facility] CHEM PANEL Chloride Lvl 72 meq/L 95 - 109 03/28/2016 [facility] CHEM PANEL Sodium Lvl 101 meq/L 135 - 145 03/28/2016 [facility] CHEM PANEL Creatinine Lvl 1.20 mg/dL 0.50 - 1.40 03/28/2016 [facility] CHEM PANEL eGFR 79 mL/min/1.73m2 03/27/2016 Result Comment: The eGFR is calculated using the [...] from the National Kidney Disease Education Program (NKDEP) which additionally recommends that when the eGFR is used in patients with extremes of body mass index for purposes of drug dosing, the eGFR should be multiplied by the estimated BMI. [facility] CHEM PANEL CO2 24 meq/L 24 - 32 03/27/2016 [facility] CHEM PANEL Calcium Lvl 7.3 mg/dL 8.5 - 10.5 03/27/2016 [facility] CHEM PANEL Chloride Lvl 100 meq/L 95 - 109 03/27/2016 [facility] CHEM PANEL Potassium Lvl 2.9 meq/L 3.5 - 5.1 03/27/2016 Result Comment: Critical Result(s) called to clemente fernandesolesyaewelina at 03/27/2016 05:29 by oly. Read back OK. [facility] CHEM PANEL BUN 6 mg/dL 7 - 22 03/27/2016 [facility] CHEM PANEL AGAP 12.9 meq/L 10.0 - 20.0 03/27/2016 [facility] CHEM PANEL Creatinine Lvl 0.96 mg/dL 0.50 - 1.40 03/27/2016 [facility] CHEM PANEL Sodium Lvl 134 meq/L 135 - 145 03/27/2016 [facility] CHEM PANEL Glucose Lvl 196 mg/dL 70 - 99 03/27/2016 [facility] HEMATOLOGY Monocytes # 0.7 K/CMM 0.0 - 0.8 03/27/2016 [facility] HEMATOLOGY Eosinophils 0.3 % 0.0 - 4.0 03/27/2016 [facility] HEMATOLOGY Segs-Bands # 4.6 K/CMM 1.5 - 8.1 03/27/2016 [facility] HEMATOLOGY Lymphocytes # 1.0 K/CMM 1.0 - 5.5 03/27/2016 [facility] HEMATOLOGY Basophils 0.9 % 0.0 - 1.0 03/27/2016 [facility] HEMATOLOGY Monocytes 11.5 % 2.0 - 12.0 03/27/2016 [facility] HEMATOLOGY Lymphocytes 15.1 % 20.0 - 40.0 03/27/2016 [facility] HEMATOLOGY Segs 72.2 % 45.0 - 75.0 03/27/2016 [facility] Basophils # 0.1 K/CMM 0.0 - 0.2 03/27/2016 [facility] MCHC 34.4 g/dL 32.0 - 36.0 03/27/2016 [facility] MPV 7.0 fL 7.4 - 10.4 03/27/2016 [facility] HEMATOLOGY Platelet 167 K/CMM 133 - 450 03/27/2016 [facility] HEMATOLOGY RDW 14.9 % 11.5 - 14.5 03/27/2016 [facility] HEMATOLOGY RBC 3.78 M/CMM 4.70 - 6.10 03/27/2016 [facility] WBC 6.4 K/CMM 3.7 - 10.4 03/27/2016 [facility] Hgb 11.4 g/dL 14.0 - 18.0 03/27/2016 [facility] MCH 30.3 pg 27.0 - 31.0 03/27/2016 [facility] HEMATOLOGY MCV 88.2 fL 80.0 - 94.0 03/27/2016 [facility] HEMATOLOGY Hct 33.3 % 42.0 - 54.0 03/27/2016 [facility] CHEM PANEL Lactic Acid Lvl 1.9 mMol/L 0.5 - 2.2 03/26/2016 [facility] URINE AND STOOL UA Ketones Negative mg/dL Negative mg/dL 03/26/2016 [facility] URINE AND STOOL UA Bili Negative *NA* (03/25/16 9:04 PM) Negative 03/26/2016 [facility] URINE AND STOOL UA Blood Negative (03/25/16 9:04 PM) Negative 03/26/2016 [facility] URINE AND STOOL UA Nitrite Negative (03/25/16 9:04 PM) Negative 03/26/2016 [facility] URINE AND STOOL UA Leuk Est Negative (03/25/16 9:04 PM) Negative 03/26/2016 [facility] URINE AND STOOL UA RBC 5 /HPF 0 - 2 03/26/2016 [facility] URINE AND STOOL UA Sq Epi None Seen 03/26/2016 [facility] URINE AND STOOL UA Urobilinogen <=1.0 mg/dL 0.1 - 1.0 03/26/2016 [facility] URINE AND STOOL UA Color Ltyellow 03/26/2016 [facility] URINE AND STOOL UA Glucose 500 mg/dL Negative mg/dL 03/26/2016 [facility] URINE AND STOOL UA Spec Grav 1.005 <=1.030 03/26/2016 [facility] URINE AND STOOL UA pH 7.0 5.0 - 8.0 03/26/2016 [facility] URINE AND STOOL UA Protein Negative mg/dL Negative mg/dL 03/26/2016 [facility] URINE AND STOOL UA Turbidity Clear (03/25/16 9:04 PM) Clear 03/26/2016 [facility] CARDIAC ENZYMES CK MB Index 2.4 0.0 - 2.5 03/26/2016 [facility] CARDIAC ENZYMES Total CK 114 unit/L 12 - 191 03/26/2016 [facility] CARDIAC ENZYMES Troponin-I null 0.00 - 0.40 03/26/2016 [facility] CARDIAC ENZYMES CK MB 2.7 ng/mL 0.5 - 3.6 03/26/2016 [facility] CHEM PANEL Lipase Lvl 175 unit/L 73 - 393 03/26/2016 [facility] CHEM PANEL Albumin Lvl 4.0 g/dL 3.5 - 5.0 03/26/2016 [facility] CHEM PANEL Total Protein 7.5 g/dL 6.4 - 8.4 03/26/2016 [facility] CHEM PANEL B/C Ratio 11 6 - 25 03/26/2016 [facility] CHEM PANEL A/G Ratio 1.1 0.7 - 1.6 03/26/2016 [facility] CHEM PANEL Globulin 3.5 g/dL 2.0 - 4.0 03/26/2016 [facility] CHEM PANEL AST 26 unit/L 0 - 37 03/26/2016 [facility] CHEM PANEL ALT 29 unit/L 0 - 65 03/26/2016 [facility] CHEM PANEL Bili Total 1.0 mg/dL 0.2 - 1.3 03/26/2016 [facility] CHEM PANEL Alk Phos 150 unit/L 39 - 136 03/26/2016 [facility] HEMATOLOGY Lymphocytes 17.0 % 20.0 - 40.0 03/26/2016 [facility] HEMATOLOGY Segs 71.3 % 45.0 - 75.0 03/26/2016 [facility] HEMATOLOGY Eosinophils 0.1 % 0.0 - 4.0 03/26/2016 [facility] HEMATOLOGY Monocytes 11.2 % 2.0 - 12.0 03/26/2016 [facility] HEMATOLOGY Segs-Bands # 5.7 K/CMM 1.5 - 8.1 03/26/2016 [facility] HEMATOLOGY Basophils 0.4 % 0.0 - 1.0 03/26/2016 [facility] HEMATOLOGY Monocytes # 0.9 K/CMM 0.0 - 0.8 03/26/2016 [facility] HEMATOLOGY Lymphocytes # 1.3 K/CMM 1.0 - 5.5 03/26/2016 [facility] HEMATOLOGY PTT 35.7 s 22.9 - 35.8 03/26/2016 [facility] HEMATOLOGY INR 1.11 0.85 - 1.17 03/26/2016 [facility] HEMATOLOGY PT 14.6 s 12.0 - 14.7 03/26/2016 [facility] HEMATOLOGY MCHC 34.9 g/dL 32.0 - 36.0 03/26/2016 [facility] HEMATOLOGY RDW 15.6 % 11.5 - 14.5 03/26/2016 [facility] HEMATOLOGY MPV 6.9 fL 7.4 - 10.4 03/26/2016 [facility] HEMATOLOGY Platelet 217 K/CMM 133 - 450 03/26/2016 [facility] HEMATOLOGY Hct 43.0 % 42.0 - 54.0 03/26/2016 [facility] MCV 85.7 fL 80.0 - 94.0 03/26/2016 [facility] MCH 29.9 pg 27.0 - 31.0 03/26/2016 [facility] Hgb 15.0 g/dL 14.0 - 18.0 03/26/2016 [facility] WBC 7.9 K/CMM 3.7 - 10.4 03/26/2016 [facility] RBC 5.01 M/CMM 4.70 - 6.10 03/26/2016 [facility] ED Abdomen/Pelvis IV contrast only CT ED Abdomen/Pelvis IV contrast only CT Patient Name: GILLIAN REGALADO : 1945; Age: 70 years y/o Male MR: [id number] Study: ED Abdomen/Pelvis IV contrast only CT 03/25/2016 8:08 PM CDT Ordering Physician: Cami Perez DO Comparison: None Clinical Indication: Generalized abdominal pain; Multiple computerized axial tomograms of the abdomen and pelvis were obtained after administration of IV contrast and without oral contrast. The lack of oral contrast limits diagnostic detail at the enteric tract and mesentery. 2-D sagittal and coronal reformation reconstruction images were obtained. Lung bases are clear. Coronary artery calcifications. Transvenous pacemaker lead. Thoracic and lumbar spondylosis are noted associated with postoperative change at the lumbar spine with cages at the lower 4 lumbar intervertebral disc spaces. Pedicular screws are noted at L2, L3 and L4 with stabilization rods between the pedicular screws. Decompressive laminectomy is noted from L5 to L2. The right kidney is surgically absent. The ascending colon is insinuated into the right renal fossa. Reticular and groundglass infiltration of the pericolonic fat at the right renal fossa is noted associated with moderate constipation and colonic diverticula suggesting diverticulitis of the ascending colon. The appendix is normal. Mild to moderate left extrarenal pelviectasis is noted. There is mild left ureterectasis due to urinary bladder dilatation. The prostate is enlarged associated with dystrophic calcification measuring 4.8 x 4.1 cm. The seminal vesicles are not enlarged. Diverticula are present at the sigmoid colon. Liver, kidneys, spleen, pancreas and adrenal glands have an otherwise normal CT appearance. There is no free fluid or pneumoperitoneum noted. IMPRESSION: 1. The right kidney is surgically absent. 2. There is insinuation of the ascending colon into the right renal fossa associated with inflammatory change in the pericolonic fat related to the ascending colon consistent with diverticulitis at the right renal fossa (series 5, images 12-18). 3. Dilated left upper collecting system and left ureter due to dilated urinary bladder. 4. Mild to moderate prostate enlargement. 5. Extensive postoperative changes with hardware at the lumbar spine. 6. Coronary artery calcifications. SL: [id number] 03/25/2016 - - Read by: Morteza Abarca MD Dictated Date/time: 03/25/16 23:17 Electronically Signed by: Morteza Abarca MD 03/25/16 23:27 FINAL REPORT [facility] Chest 1view DX Chest 1view DX Study: Chest 1view DX Age Male 70 years old Clinical Indication: Dyspnea; Comparison: None FINDINGS: Tubes and lines: A single lead left subclavian pacemaker extends to the right heart. LUNGS: The volume of the lungs is slightly increased, suspicious for emphysema. There is no evidence of consolidation. No pleural effusion is noted. The pulmonary vasculature is within normal limits. MEDIASTINUM: Cardiac silhouette is within normal limits of size. CHEST WALL: Unremarkable. SKELETON: The visualized osseous structures are unremarkable. IMPRESSION: 1. No acute cardiopulmonary abnormality identified. 2. Single lead left subclavian pacemaker in the right heart. SL: [id number] 03/25/2016 - - Read by: Rigoberto Bell MD Dictated Date/time: 03/25/16 20:44 Electronically Signed by: Rigoberto Bell MD 03/25/16 20:44 FINAL REPORT [facility] Scapula 2 views DX Scapula 2 views DX EXAM: Scapula 2 views DX HISTORY: M89.8X1 Other specified disorders of bone, shoulder COMPARISON: None 3 views of the right scapula. IMPRESSION: No fracture is seen. No concerning osseous lesion. No significant degenerative change is evident. The glenohumeral joint projects in normal alignment. 02/16/2016 - - Read by: Skylar Barton MD Dictated Date/time: 02/16/16 09:13 Electronically Signed by: Skylar Barton MD 02/16/16 09:14 FINAL REPORT [facility] CHEM PANEL eGFR 86 mL/min/1.73m2 03/23/2014 1Result Comment: The eGFR is calculated using [...] from the National Kidney Disease Education Program (NKDEP) which additionally recommends that when the eGFR is used in patients with extremes of body mass index for purposes of drug dosing, the eGFR should be multiplied by the estimated BMI. [facility] CHEM PANEL AGAP 12.1 meq/L 10.0 - 20.0 03/23/2014 [facility] CHEM PANEL Calcium Lvl 9.6 mg/dL 8.5 - 10.5 03/23/2014 [facility] CHEM PANEL CO2 23 meq/L 24 - 32 03/23/2014 [facility] CHEM PANEL Creatinine Lvl 0.9 mg/dL 0.5 - 1.4 03/23/2014 [facility] CHEM PANEL Sodium Lvl 133 meq/L 135 - 145 03/23/2014 [facility] CHEM PANEL Potassium Lvl 4.1 meq/L 3.5 - 5.1 03/23/2014 [facility] CHEM PANEL Chloride Lvl 102 meq/L 95 - 109 03/23/2014 [facility] CHEM PANEL Glucose Lvl 260 mg/dL 70 - 99 03/23/2014 3Interpretive Data: Adult reference range values reflect the clinical guidelines of the [place] [employer]. [facility] CHEM PANEL BUN 7 mg/dL 7 - 22 03/23/2014 [facility] HEMATOLOGY PTT 34.0 s 22.9 - 35.8 03/23/2014 6Interpretive Data: Heparin Therapeutic Range: 57 - 92 Seconds [facility] RDW 12.9 % 11.5 - 14.5 03/23/2014 [facility] MCHC 34.1 g/dL 32.0 - 36.0 03/23/2014 [facility] Hgb 14.4 g/dL 14.0 - 18.0 03/23/2014 [facility] RBC 4.53 M/CMM 4.70 - 6.10 03/23/2014 [facility] HEMATOLOGY WBC 7.7 K/CMM 3.7 - 10.4 03/23/2014 [facility] HEMATOLOGY MCH 31.8 pg 27.0 - 31.0 03/23/2014 [facility] HEMATOLOGY Hct 42.3 % 42.0 - 54.0 03/23/2014 [facility] HEMATOLOGY MCV 93.3 fL 80.0 - 94.0 03/23/2014 [facility] HEMATOLOGY Platelet 292 K/CMM 133 - 450 03/23/2014 [facility] HEMATOLOGY MPV 7.2 fL 7.4 - 10.4 03/23/2014 [facility] HEMATOLOGY Basophils 0.3 % 0.0 - 1.0 03/23/2014 [facility] HEMATOLOGY Segs 73.8 % 45.0 - 75.0 03/23/2014 [facility] HEMATOLOGY Monocytes 9.1 % 2.0 - 12.0 03/23/2014 [facility] HEMATOLOGY Lymphocytes 16.7 % 20.0 - 40.0 03/23/2014 [facility] HEMATOLOGY Eosinophils 0.1 % 0.0 - 4.0 03/23/2014 [facility] HEMATOLOGY Monocytes # 0.7 K/CMM 0.0 - 0.8 03/23/2014 [facility] HEMATOLOGY Lymphocytes # 1.3 K/CMM 1.0 - 5.5 03/23/2014 [facility] HEMATOLOGY Segs-Bands # 5.7 K/CMM 1.5 - 8.1 03/23/2014 [facility] HEMATOLOGY Basophils # 0.0 K/CMM 0.0 - 0.2 03/23/2014 [facility] HEMATOLOGY Eosinophils # 0.0 K/CMM 0.0 - 0.5 03/23/2014 [facility] CARDIAC ENZYMES Total CK 81 unit/L 12 - 191 03/23/2014 [facility] CARDIAC ENZYMES Troponin-I null 0.00 - 0.40 03/23/2014 [facility] CARDIAC ENZYMES CK MB 1.2 ng/mL 0.5 - 3.6 03/23/2014 [facility] CARDIAC ENZYMES CK MB Index 1.5 0.0 - 2.5 03/23/2014 [facility] CHEM PANEL Globulin 3.3 g/dL 2.0 - 4.0 03/23/2014 [facility] CHEM PANEL AGAP 13.1 meq/L 10.0 - 20.0 03/23/2014 [facility] CHEM PANEL B/C Ratio 4 6 - 25 03/23/2014 [facility] CHEM PANEL A/G Ratio 1.2 0.7 - 1.6 03/23/2014 [facility] CHEM PANEL eGFR 96 mL/min/1.73m2 03/23/2014 2Result Comment: The eGFR is calculated using the [...] from the National Kidney Disease Education Program (NKDEP) which additionally recommends that when the eGFR is used in patients with extremes of body mass index for purposes of drug dosing, the eGFR should be multiplied by the estimated BMI. [facility] CHEM PANEL Alk Phos 72 unit/L 39 - 136 03/23/2014 [facility] CHEM PANEL Bili Total 0.5 mg/dL 0.2 - 1.3 03/23/2014 [facility] CHEM PANEL CO2 24 meq/L 24 - 32 03/23/2014 [facility] CHEM PANEL Chloride Lvl 96 meq/L 95 - 109 03/23/2014 [facility] CHEM PANEL Albumin Lvl 4.1 g/dL 3.5 - 5.0 03/23/2014 [facility] CHEM PANEL Total Protein 7.4 g/dL 6.4 - 8.4 03/23/2014 [facility] CHEM PANEL Calcium Lvl 9.0 mg/dL 8.5 - 10.5 03/23/2014 [facility] CHEM PANEL AST 17 unit/L 0 - 37 03/23/2014 [facility] CHEM PANEL ALT 29 unit/L 0 - 65 03/23/2014 [facility] CHEM PANEL BUN 3 mg/dL 7 - 22 03/23/2014 [facility] CHEM PANEL Creatinine Lvl 0.7 mg/dL 0.5 - 1.4 03/23/2014 [facility] CHEM PANEL Glucose Lvl 131 mg/dL 70 - 99 03/23/2014 4Interpretive Data: Adult reference range values reflect the clinical guidelines of the [place] [employer]. [facility] CHEM PANEL Potassium Lvl 4.1 meq/L 3.5 - 5.1 03/23/2014 [facility] CHEM PANEL Sodium Lvl 129 meq/L 135 - 145 03/23/2014 [facility] Segs-Bands # 4.6 K/CMM 1.5 - 8.1 03/23/2014 [facility] Basophils 0.2 % 0.0 - 1.0 03/23/2014 [facility] Eosinophils 0.2 % 0.0 - 4.0 03/23/2014 [facility] Segs 64.0 % 45.0 - 75.0 03/23/2014 [facility] Lymphocytes 25.2 % 20.0 - 40.0 03/23/2014 [facility] Monocytes 10.4 % 2.0 - 12.0 03/23/2014 [facility] Basophils # 0.0 K/CMM 0.0 - 0.2 03/23/2014 [facility] Eosinophils # 0.0 K/CMM 0.0 - 0.5 03/23/2014 [facility] Lymphocytes # 1.8 K/CMM 1.0 - 5.5 03/23/2014 [facility] Monocytes # 0.7 K/CMM 0.0 - 0.8 03/23/2014 [facility] PT 13.4 s 12.0 - 14.7 03/23/2014 [facility] PTT 32.8 s 22.9 - 35.8 03/23/2014 7Interpretive Data: Heparin Therapeutic Range: 57 - 92 Seconds [facility] INR 1.03 0.85 - 1.17 03/23/2014 5Interpretive Data: RECOMMENDED RANGES FOR PROTIME INR: 2.0-3.0 for most medical and surgical thromboembolic states. 2.5-3.5 for artificial heart valves and recurrent embolism. INR SHOULD BE USED ONLY FOR PATIENTS ON STABLE ANTICOAGULANT THERAPY. [facility] RDW 12.9 % 11.5 - 14.5 03/23/2014 [facility] MCHC 34.4 g/dL 32.0 - 36.0 03/23/2014 [facility] MCV 93.0 fL 80.0 - 94.0 03/23/2014 [facility] MCH 32.0 pg 27.0 - 31.0 03/23/2014 [facility] Hgb 14.1 g/dL 14.0 - 18.0 03/23/2014 [facility] Hct 41.1 % 42.0 - 54.0 03/23/2014 [facility] WBC 7.2 K/CMM 3.7 - 10.4 03/23/2014 [facility] HEMATOLOGY RBC 4.42 M/CMM 4.70 - 6.10 03/23/2014 [facility] HEMATOLOGY Platelet 287 K/CMM 133 - 450 03/23/2014 [facility] HEMATOLOGY MPV 6.9 fL 7.4 - 10.4 03/23/2014 [facility] URINE AND STOOL UA Protein Negative (03/22/14 8:25 PM) Negative 03/23/2014 [facility] URINE AND STOOL UA Glucose Negative (03/22/14 8:25 PM) Negative 03/23/2014 [facility] URINE AND STOOL UA Ketones Trace *ABN* (03/22/14 8:25 PM) Negative 03/23/2014 [facility] URINE AND STOOL UA Turbidity Clear (03/22/14 8:25 PM) Clear 03/23/2014 [facility] URINE AND STOOL UA Spec Grav <=1.005
*NA*
(03/22/14 8:25 PM) <=1.030 03/23/2014 [facility] URINE AND STOOL UA pH 6.5 5.0 - 8.0 03/23/2014 [facility] URINE AND STOOL UA Color Yellow *NA* (03/22/14 8:25 PM) Yellow 03/23/2014 [facility] URINE AND STOOL UA Bacteria Occasional /HPF None Seen /HPF 03/23/2014 [facility] URINE AND STOOL UA WBC 0-2 /HPF 0 - 5 03/23/2014 [facility] URINE AND STOOL UA Bili Negative *NA* (03/22/14 8:25 PM) Negative 03/23/2014 [facility] URINE AND STOOL UA Blood Negative (03/22/14 8:25 PM) Negative 03/23/2014 [facility] URINE AND STOOL UA Sq Epi Occasional /LPF Few /LPF 03/23/2014 [facility] URINE AND STOOL Micro? Performed (03/22/14 8:25 PM) 03/23/2014 [facility] URINE AND STOOL UA RBC None Seen (03/22/14 8:25 PM) 0 - 2 03/23/2014 [facility] URINE AND STOOL UA Urobilinogen 0.2 EU/dL 0.1 - 1.0 03/23/2014 [facility] URINE AND STOOL UA Leuk Est Negative (03/22/14 8:25 PM) Negative 03/23/2014 [facility] URINE AND STOOL UA Nitrite Negative (03/22/14 8:25 PM) Negative 03/23/2014 [facility] Vital Signs Vital Sign Value Date Comments Source BMI Calculated 27.07 05/02/[facility] Weight 76.08 05/02/[facility] Height 167.64 cm 05/02/2019 [facility] Systolic (mm Hg) 165 05/02/2019 [facility] Diastolic (mm Hg) 75 05/02/2019 [facility] Heart Rate 68 05/02/2019 [facility] BMI Calculated 26.53 05/01/2019 [facility] Weight 74.545 05/01/2019 [facility] Height 167.64 cm 05/01/2019 [facility] Temperature Oral (F) 97.9 F 05/01/2019 [facility] Respitory Rate 14 05/01/2019 [facility] Heart Rate 62 05/01/2019 [facility] Systolic (mm Hg) 142 05/01/2019 [facility] Diastolic (mm Hg) 58 05/01/2019 [facility] Height 167.64 cm 04/27/2019 [facility] Weight 58.665 04/27/2019 [facility] BMI Calculated 20.87 04/27/2019 [facility] Systolic (mm Hg) 125 04/27/2019 [facility] Diastolic (mm Hg) 65 04/27/2019 [facility] Heart Rate 62 04/27/2019 [facility] Height 167.64 cm 04/02/2019 [facility] BMI Calculated 26.05 04/02/2019 [facility] Weight 73.21 04/02/2019 [facility] Heart Rate 71 04/02/2019 [facility] Systolic (mm Hg) 135 04/02/2019 [facility] Diastolic (mm Hg) 65 04/02/2019 [facility] Respitory Rate 16 04/02/2019 [facility] Temperature Oral (F) 97.6 F 04/02/2019 [facility] Heart Rate 71 03/21/2019 [facility] Systolic (mm Hg) 153 03/21/2019 [facility] Diastolic (mm Hg) 73 03/21/2019 [facility] Respitory Rate 18 03/21/2019 [facility] Temperature Oral (F) 98.3 F 03/21/2019 [facility] Systolic (mm Hg) 148 03/21/2019 [facility] Diastolic (mm Hg) 70 03/21/2019 [facility] Respitory Rate 18 03/21/2019 [facility] Heart Rate 63 03/21/2019 [facility] Temperature Oral (F) 99.3 F 03/21/2019 [facility] Heart Rate 68 03/21/2019 [facility] Systolic (mm Hg) 155 03/21/2019 [facility] Diastolic (mm Hg) 84 03/21/2019 [facility] Respitory Rate 20 03/21/2019 [facility] Temperature Oral (F) 98.1 F 03/21/2019 [facility] Height 172.72 cm 03/20/2019 [facility] Weight 74.545 03/20/2019 [facility] BMI Calculated 24.99 03/20/2019 [facility] Height 172.72 cm 03/13/2019 [facility] BMI Calculated 24.99 03/13/2019 [facility] Weight 74.545 03/13/2019 [facility] Respitory Rate 17 03/13/2019 [facility] Systolic (mm Hg) 163 03/13/2019 [facility] Diastolic (mm Hg) 80 03/13/2019 [facility] Heart Rate 57 03/13/2019 [facility] BMI Calculated 24.99 03/08/2019 [facility] Weight 74.545 03/08/2019 [facility] Height 172.72 cm 03/08/2019 [facility] Systolic (mm Hg) 152 03/06/2019 [facility] Diastolic (mm Hg) 71 03/06/2019 [facility] Respitory Rate 21 03/06/2019 [facility] Systolic (mm Hg) 153 03/06/2019 [facility] Diastolic (mm Hg) 80 03/06/2019 [facility] Respitory Rate 16 03/06/2019 [facility] Respitory Rate 17 03/06/2019 [facility] Systolic (mm Hg) 151 03/06/2019 [facility] Diastolic (mm Hg) 83 03/06/2019 [facility] BMI Calculated 25 03/06/2019 [facility] Weight 74.574 03/06/2019 [facility] Height 172.72 cm 03/01/2019 [facility] BMI Calculated 26.38 01/16/2019 [facility] Weight 74.148 01/16/2019 [facility] Height 167.64 cm 01/16/2019 [facility] Heart Rate 84 01/16/2019 [facility] Respitory Rate 16 01/16/2019 [facility] Systolic (mm Hg) 136 01/16/2019 [facility] Diastolic (mm Hg) 74 01/16/2019 [facility] Temperature Oral (F) 97.3 F 01/16/2019 [facility] Height 172.72 cm 01/05/2019 [facility] Weight 74.261 01/05/2019 [facility] BMI Calculated 24.89 01/05/2019 [facility] Systolic (mm Hg) 176 01/05/2019 [facility] Diastolic (mm Hg) 79 01/05/2019 [facility] Heart Rate 73 01/05/2019 [facility] Height 167.64 cm 01/03/2019 [facility] BMI Calculated 26.59 01/03/2019 [facility] Weight 74.716 01/03/2019 [facility] Systolic (mm Hg) 152 01/03/2019 [facility] Diastolic (mm Hg) 71 01/03/2019 [facility] Respitory Rate 16 01/03/2019 [facility] Heart Rate 64 01/03/2019 [facility] Temperature Oral (F) 98 F 01/03/2019 [facility] Height 172.72 cm 12/27/2018 [facility] BMI Calculated 24.99 12/27/2018 [facility] Weight 74.545 12/27/2018 [facility] BMI Calculated 26.85 12/04/2018 [facility] Weight 75.455 12/04/2018 [facility] Height 167.64 cm 12/04/2018 [facility] Heart Rate 66 12/04/2018 [facility] Systolic (mm Hg) 166 12/04/2018 [facility] Diastolic (mm Hg) 82 12/04/2018 [facility] BMI Calculated 27.01 10/03/2018 [facility] Weight 75.909 10/03/2018 [facility] Height 167.64 cm 10/03/2018 [facility] Respitory Rate 16 10/03/2018 [facility] Temperature Oral (F) 98 F 10/03/2018 [facility] Heart Rate 61 10/03/2018 [facility] Systolic (mm Hg) 158 10/03/2018 [facility] Diastolic (mm Hg) 77 10/03/2018 [facility] Height 172.72 cm 09/29/2018 [facility] Systolic (mm Hg) 147 09/29/2018 [facility] Diastolic (mm Hg) 80 09/29/2018 [facility] Heart Rate 80 09/29/2018 [facility] Weight 74.659 09/29/2018 [facility] BMI Calculated 25.03 09/29/2018 [facility] BMI Calculated 26.87 09/18/2018 [facility] Weight 75.511 09/18/2018 [facility] Systolic (mm Hg) 156 09/18/2018 [facility] Diastolic (mm Hg) 78 09/18/2018 [facility] Temperature Oral (F) 97.8 F 09/18/2018 [facility] Respitory Rate 16 09/18/2018 [facility] Heart Rate 60 09/18/2018 [facility] Height 167.64 cm 09/18/2018 [facility] Temperature Oral (F) 97.9 F 11/06/2016 [facility] Heart Rate 68 11/06/2016 [facility] Respitory Rate 16 11/06/2016 [facility] Systolic (mm Hg) 133 11/06/2016 [facility] Diastolic (mm Hg) 66 11/06/2016 [facility] Respitory Rate 18 11/06/2016 [facility] Heart Rate 76 11/06/2016 [facility] Temperature Oral (F) 98.0 F 11/06/2016 [facility] Systolic (mm Hg) 136 11/06/2016 [facility] Diastolic (mm Hg) 75 11/06/2016 [facility] Systolic (mm Hg) 144 11/06/2016 [facility] Diastolic (mm Hg) 67 11/06/2016 [facility] Heart Rate 61 11/06/2016 [facility] Respitory Rate 18 11/06/2016 [facility] Temperature Oral (F) 97.8 F 11/06/2016 [facility] BMI Calculated 25.45 11/06/2016 [facility] Weight 75.909 11/06/2016 [facility] Height 172.72 cm 11/06/2016 [facility] Respitory Rate 18 03/28/2016 [facility] Heart Rate 60 03/28/2016 [facility] Systolic (mm Hg) 134 03/28/2016 [facility] Diastolic (mm Hg) 87 03/28/2016 [facility] Temperature Oral (F) 98.2 F 03/28/2016 [facility] Systolic (mm Hg) 154 03/28/2016 [facility] Diastolic (mm Hg) 89 03/28/2016 [facility] Respitory Rate 2 03/28/2016 [facility] Heart Rate 61 03/28/2016 [facility] Temperature Oral (F) 97.5 F 03/28/2016 [facility] Respitory Rate 20 03/28/2016 [facility] Systolic (mm Hg) 139 03/28/2016 [facility] Diastolic (mm Hg) 84 03/28/2016 [facility] Temperature Oral (F) 97.6 F 03/28/2016 [facility] Heart Rate 64 03/28/2016 [facility] Height 172.72 cm 03/26/2016 [facility] BMI Calculated 23.53 03/26/2016 [facility] Weight 70.199 03/26/2016 [facility] Height 172.72 cm 03/26/2016 [facility] Weight 71.364 03/26/2016 [facility] BMI Calculated 23.92 03/26/2016 [facility] Systolic (mm Hg) 161 03/23/2014 [facility] Respitory Rate 16 03/23/2014 [facility] Diastolic (mm Hg) 81 03/23/2014 [facility] Heart Rate 78 03/23/2014 [facility] Temperature Oral (F) 97.7 F 03/23/2014 [facility] Heart Rate 63 03/23/2014 [facility] Temperature Oral (F) 97.8 F 03/23/2014 [facility] Systolic (mm Hg) 158 03/23/2014 [facility] Diastolic (mm Hg) 81 03/23/2014 [facility] Respitory Rate 16 03/23/2014 [facility] Heart Rate 75 03/23/2014 [facility] Temperature Oral (F) 97.9 F 03/23/2014 [facility] Respitory Rate 18 03/23/2014 [facility] Diastolic (mm Hg) 60 03/23/2014 [facility] Systolic (mm Hg) 111 03/23/2014 [facility] Height 172.72 cm 03/23/2014 [facility] Weight 77.727 03/23/2014 [facility] BMI Calculated 26.05 03/23/2014 [facility] Weight 77.727 03/22/2014 [facility] BMI Calculated 26.05 03/22/2014 [facility] Height 172.72 cm 03/22/2014 [facility] Encounters Location Location Details Encounter Type Encounter Number Reason For Visit Attending Provider ADM Date DC Date Status Source [facility] OBS Observation Patient [id number] Satish Mauro 03/22/2014 03/23/2014 [facility] Outpatient [id number] ERIKA FRANCO 08/19/2015 Active [facility] Outpatient [id number] ERIKA FRANCO 11/17/2015 Active [facility] Outpatient [id number] ERIKA FRANCO 12/24/2015 Active [facility] Outpatient [id number] ERIKA FRANCO 01/22/2016 Active [facility] Outpatient [id number] ERIKA FRANCO 01/22/2016 Active [facility] [id number] Erika Franco 02/16/2016 02/17/2016 [facility] [id number] ERIKA FRANCO 03/08/2016 Active [facility] Outpatient [id number] ERIKA FRANCO 03/17/2016 Active [facility] Outpatient [id number] ERIKA FRANCO 03/19/2016 Active [facility] Inpatient [id number] Satish Mauro 03/26/2016 03/28/2016 [facility] Outpatient [id number] ERIKA FRANCO 03/29/2016 Active [facility] Outpatient [id number] ERIKA FRANCO 03/29/2016 Active [facility] Outpatient [id number] ERIKA FRANCO 04/22/2016 Active [facility] Outpatient [id number] ERIKA FRANCO 07/23/2016 Active [facility] Outpatient [id number] ERIKA FRANCO 08/03/2016 Active [facility] Outpatient [id number] ERIKA FRANCO 11/03/2016 Active [facility] Emergency [id number] Cruzito Casianoepalov 11/06/2016 11/06/2016 [facility] Outpatient [id number] TIFFANY BELLO 11/17/2016 Active [facility] Outpatient [id number] ERIKA FRANCO 02/02/2017 [facility] [id number] ERIKA FRANCO 05/06/2017 Active [facility] [id number] MALISSA BROWN 06/02/2017 Active [facility] Outpatient [id number] ERIKA FRANCO 07/14/2017 Active [facility] Outpatient [id number] ERIKA FRANCO 07/20/2017 Active [facility] Phone Message [id number] 10/03/2017 10/05/2017 [facility] Phone Message [id number] 10/25/2017 10/27/2017 [facility] Phone Message [id number] 10/25/2017 10/27/2017 [facility] Phone Message [id number] 10/28/2017 10/30/2017 [facility] Phone Message [id number] 10/31/2017 11/02/2017 [facility] Phone Message [id number] 11/08/2017 11/09/2017 [facility] Outpatient [id number] ERIKA FRANCO 11/23/2017 Active [facility] Ambulatory Pre-Reg [id number] Erika Franco 11/23/2017 11/23/2017 [facility] Phone Message [id number] 12/26/2017 12/28/2017 [facility] Phone Message [id number] 01/23/2018 01/25/2018 [facility] Phone Message [id number] 01/31/2018 02/02/2018 [facility] Phone Message [id number] 02/23/2018 02/25/2018 [facility] Phone Message [id number] 03/10/2018 03/12/2018 [facility] Phone Message [id number] 03/13/2018 03/15/2018 [facility] Phone Message [id number] 03/17/2018 03/18/2018 [facility] Phone Message [id number] 03/21/2018 03/23/2018 [facility] Phone Message [id number] 05/22/2018 05/24/2018 [facility] Outpatient [id number] ERIKA FRANCO 09/18/2018 [facility] Out[facility] [id number] Erika Franco 09/18/2018 09/19/2018 [facility] Phone Message [id number] 09/19/2018 09/21/2018 [facility] Phone Message [id number] 09/20/2018 09/22/2018 [facility] Outpatient [id number] Erika Franco 09/26/2018 09/27/2018 [facility] Primary Care [facility] Phone Message [id number] 09/26/2018 09/28/2018 [facility] Primary Care [facility] Phone Message [id number] 09/27/2018 09/29/2018 [facility] Outpatient [id number] [facility] 09/29/2018 [facility] [id number] [facility] 09/29/2018 09/30/2018 [facility] Outpatient [id number] ERIKA FRANCO 10/03/2018 Active [facility] Outpatient [id number] Erika Franco 10/03/2018 10/04/2018 [facility] Phone Message [id number] 10/09/2018 10/11/2018 [facility] Outpatient [id number] [facility] 11/03/2018 Active [facility] [id number] [facility] 11/20/2018 Active [facility] Outpatient [id number] [facility] 11/20/2018 Active [facility] [id number] [facility] 12/01/2018 Active [facility] Outpatient [id number] [facility] 12/04/2018 Active [facility] Outpatient [id number] [facility] 12/04/2018 12/05/2018 [facility] Primary Care [facility] Phone Message [id number] 12/04/2018 12/06/2018 [facility] Primary Care [facility] Phone Message [id number] 12/06/2018 12/08/2018 [facility] Outpatient [id number] [facility] 12/27/2018 12/28/2018 [facility] Outpatient [id number] ERIKA FRANCO 01/03/2019 Active [facility] Primary Care [facility] Outpatient [id number] Erika Franco 01/03/2019 01/04/2019 [facility] Outpatient [id number] [facility] 01/05/2019 Active [facility] Outpatient [id number] [facility] 01/05/2019 01/06/2019 [facility] Outpatient [id number] ERIKA FRANCO 01/16/2019 Active [facility] Outpatient [id number] Erika Franco 01/16/2019 01/17/2019 [facility] Primary [facility] Phone Message [id number] 03/01/2019 03/03/2019 [facility] [id number] [facility] 03/06/2019 03/06/2019 [facility] [facility] Day Surgery [id number] Chetan Remedios 03/13/2019 03/14/2019 [facility] Observation [id number] Chetan Remedios 03/21/2019 03/21/2019 [facility] Outpatient [id number] [facility] 03/27/2019 Active [facility] Ambulatory Pre-Reg [id number] [facility] 03/27/2019 03/27/2019 [facility] Outpatient [id number] Erika Franco 04/02/2019 Active [facility] Outpatient [id number] Erika Franco 04/02/2019 04/03/2019 [facility] Outpatient [id number] Tiffany Bello Jacobson 04/27/2019 Active [facility] Outpatient [id number] Tiffany Bello Jacobson 04/27/2019 Active [facility] Primary [facility] Ambulatory Pre-Reg [id number] Tiffany Bello Jacobson 04/27/2019 04/27/2019 [facility] Primary Care [facility] Outpatient [id number] Tiffany Bello Jacobson 04/27/2019 04/28/2019 [facility] Outpatient [id number] Zhlulú Harrell 05/01/2019 Active [facility] Outpatient [id number] Erika Franco 05/01/2019 05/02/2019 [facility] Outpatient [id number] [facility] 05/02/2019 [facility] [id number] -PROCEDURE ROOM 1, 05/02/2019 Active [facility] Outpatient [id number] [facility] 05/02/2019 05/03/2019 [facility] Urology [facility] Outpatient [id number] [facility] 05/02/2019 05/03/2019 [facility] Outpatient [id number] Erika Franco 07/02/2019 Active [facility] Outpatient [id number] [facility] 08/01/2019 Active [facility] Procedures Procedure Code Date Perfomer Comments Source Ablation, 1 or more renal tumor(s), percutaneous, unilateral, radiofrequency [id number] 03/20/2019 [facility] Ablation, renal tumor(s), unilateral, percutaneous, cryotherapy [id number] 03/20/2019 [facility] Unlisted procedure, urinary system [id number] 03/20/2019 [facility] CT guided percutaneous cryotherapy ablation of tumour of kidney<sup>1</sup> [id number] 03/20/2019 Procedure: Left renal ablation-image guided. Indication: renal cell carcinoma Left kidney. [facility] CT guided percutaneous cryotherapy ablation of tumour of kidney<sup>1</sup> [id number] 03/20/2019 Procedure: Left renal ablation-image guided. Indication: renal cell carcinoma Left kidney. [facility] Removal impacted cerumen using irrigation/lavage, unilateral [id number] 01/16/2019 [facility] Core needle biopsy of kidney<sup>1</sup> [id number] 12/27/2018 left kidney [facility] Core needle biopsy of kidney<sup>2</sup> [id number] 12/27/2018 left kidney [facility] Core needle biopsy of kidney<sup>1</sup> [id number] 12/27/2018 left kidney [facility] Core needle biopsy of kidney<sup>2</sup> [id number] 12/27/2018 left kidney [facility] Core needle biopsy of kidney<sup>1</sup> [id number] 12/27/2018 left kidney [facility] Influenza vaccination [id number] 08/18/2018 [facility] Influenza vaccination [id number] 08/18/2018 [facility] Influenza vaccination 08591513 08/18/2018 [facility] Influenza vaccination [id number] 08/18/2018 [facility] Comprehensive eye examination<sup>1</sup> [id number] 05/03/2017 no retinopathy, cataract OD [facility] Comprehensive eye examination<sup>2</sup> 07390628 05/03/2017 no retinopathy, cataract OD [facility] Comprehensive eye examination<sup>1</sup> 58613457 05/03/2017 no retinopathy, cataract OD [facility] Comprehensive eye examination<sup>3</sup> 06517986 05/03/2017 no retinopathy, cataract OD [facility] Comprehensive eye examination<sup>2</sup> 31792208 05/03/2017 no retinopathy, cataract OD [facility] Comprehensive eye examination<sup>3</sup> 51900246 05/03/2017 no retinopathy, cataract OD [facility] Comprehensive eye examination<sup>2</sup> 17297316 05/03/2017 no retinopathy, cataract OD [facility] Administration of herpes zoster vaccine 776828474 07/06/2016 [facility] Pneumococcal vaccination<sup>2</sup> 56643489 07/06/2016 Prevnar- 13 [facility] Pneumococcal vaccination<sup>3</sup> 04523529 07/06/2016 Prevnar- 13 [facility] Administration of herpes zoster vaccine 505321410 07/06/2016 [facility] Pneumococcal vaccination<sup>2</sup> [id number] 07/06/2016 Prevnar- 13 [facility] Pneumococcal vaccination<sup>4</sup> 14208775 07/06/2016 Prevnar- 13 [facility] Administration of herpes zoster vaccine 577651823 07/06/2016 [facility] Pneumococcal vaccination<sup>3</sup> 99432367 07/06/2016 Prevnar- 13 [facility] Pneumococcal vaccination<sup>4</sup> 24882285 07/06/2016 Prevnar- 13 [facility] Administration of herpes zoster vaccine 961381079 07/06/2016 [facility] Pneumococcal vaccination<sup>3</sup> 20744456 07/06/2016 Prevnar- 13 [facility] Implantation of cardiac pacemaker 159438194 03/14/2016 [facility] Implantation of cardiac pacemaker 996771247 03/14/2016 [facility] Implantation of heart pacemaker 254676585 03/14/2016 [facility] of cardiac pac[facility] 132707619 03/14/2016 [facility] Implantation of cardiac pacemaker 994409377 03/14/2016 [facility] Nephrectomy<sup>2</sup> [id number] 10/24/2015 Right kidney due to right renal cancer [facility] Nephrectomy<sup>1</sup> 496078228 10/24/2015 Right kidney due to right renal cancer [facility] Nephrectomy<sup>1</sup> 080172933 10/24/2015 Right kidney due to right renal cancer [facility] Nephrectomy<sup>3</sup> [id number] 10/24/2015 Right kidney due to right renal cancer [facility] Nephrectomy<sup>4</sup> 395682998 10/24/2015 Right kidney due to right renal cancer [facility] Nephrectomy<sup>3</sup> [id number] 10/24/2015 Right kidney due to right renal cancer [facility] Nephrectomy<sup>5</sup> [id number] 10/24/2015 Right kidney due to right renal cancer [facility] Nephrectomy<sup>4</sup> [id number] 10/24/2015 Right kidney due to right renal cancer [facility] Nephrectomy<sup>5</sup> 192981589 10/24/2015 Right kidney due to right renal cancer [facility] Nephrectomy<sup>4</sup> [id number] 10/24/2015 Right kidney due to right renal cancer [facility] Colonoscopy<sup>3</sup> [id number] 05/28/2015 polyps, diverticulosis, repeat in 3 years [facility] Colonoscopy<sup>2</sup> [id number] 05/28/2015 polyps, diverticulosis, repeat in 3 years [facility] Colonoscopy<sup>2</sup> [id number] 05/28/2015 polyps, diverticulosis, repeat in 3 years [facility] Colonoscopy<sup>4</sup> [id number] 05/28/2015 polyps, diverticulosis, repeat in 3 years [facility] Colonoscopy<sup>5</sup> [id number] 05/28/2015 polyps, diverticulosis, repeat in 3 years [facility] Colonoscopy<sup>4</sup> [id number] 05/28/2015 polyps, diverticulosis, repeat in 3 years [facility] Colonoscopy<sup>6</sup> [id number] 05/28/2015 polyps, diverticulosis, repeat in 3 years [facility] Colonoscopy<sup>5</sup> [id number] 05/28/2015 polyps, diverticulosis, repeat in 3 years [facility] Colonoscopy<sup>6</sup> [id number] 05/28/2015 polyps, diverticulosis, repeat in 3 years [facility] Colonoscopy<sup>5</sup> [id number] 05/28/2015 polyps, diverticulosis, repeat in 3 years [facility] Decompression laminectomy of lumbar spine 371472952 [facility] TURP - Transurethral resection of prostate [id number] [facility] Decompression laminectomy of lumbar spine 689075223 [facility] [place] TURP - Transurethral resection of prostate [id number] [facility] [place] Decompression laminectomy of lumbar spine 224608535 [facility] TURP - Transurethral resection of prostate [id number] [facility] Decompression laminectomy of lumbar spine 476728342 [facility] TURP - Transurethral resection of prostate 73492581 [facility] Decompression laminectomy of lumbar spine 787251442 [facility] TURP - Transurethral resection of prostate [id number] [facility]
--- OUTSIDE RECORDS SUMMARY | 2019-05-06 21:43 | XMS REPORT | Summary of Care ---
Author Author [facility] Care [facility] Organization [facility] Address Unknown Phone Unavailable Care Team Providers Care Sales Ledger Clerk Name Role Phone Noemi Golden PCP Encounter HQ Shelleyntr_izzy(FIN) [id number] Date(s): 09/27/18 - 09/28/18 [facility] [address] [place] [address]- Vital Signs No data available for this [...] [employer] on 05/21/15. 5Data migrated from apomioty on 04/12/15. Allergies, Adverse Reactions, Alerts Substance Reaction Severity Status clindamycin1 nausea Active 1Data migrated from [employer] on 05/22/15. Originally documented as CLINDAMYCIN HCL. [...] History: [place] 2Result Comment: fluzone high dose [[id number]]. Migrated from OBS ; Data migrated from [employer] on 12/16/2015. 3Location History: Pharmacy 4Location History: Pharmacy 5Result Comment: done. Migrated from OBS ; Data migrated from [employer] on 12/16/2015. 6Location History: Pharmacy Procedures Procedure [...]
--- OUTSIDE RECORDS SUMMARY | 2019-05-06 21:43 | XMS REPORT | Summary of Care ---
Author Author [facility] Organization [facility] Address Unknown Phone Unavailable Encounter HQ Sp_izzy(FIN) [id number] Date(s): 01/03/19 - 01/03/19 [facility] [address], [address] [place], [place] [address]- [phone] Discharge Disposition: Home or Self Care Attending Physician: Noemi Golden MD Vital Signs Most recent to 1 oldest [Reference Range]: Height 167.64 cm (01/03/19 10:00 AM) Temperature Oral 98 DegF [96.4-99.1 DegF] (01/03/19 10:00 AM) Blood Pressure 152/71 mmHg [90-140/60-90 mmHg] *HI* (01/03/19 10:00 AM) Respiratory Rate 16 BRMIN [14-20 BRMIN] (01/03/19 10:00 AM) Peripheral Pulse 64 bpm Rate [60-100 bpm] (01/03/19 10:00 AM) Weight 74.716 kg (01/03/19 10:00 AM) Body Mass Index 26.59 m2 (01/03/19 10:00 AM) Problem List Condition Effective Dates Status Health Status Informant Hx of unilateral Active nephrectomy(Confirme d) Benign essential Active hypertension(Confirm ed) Benign prostatic 11/14/59 Active hyperplasia(Confirme d)1 Body mass index Active 26.0-26.9, adult(Confirmed) Symptomatic Active bradycardia(Confirme d) Cardiac Active pacemaker(Confirmed) Cervical Active spondylosis(Confirme d) Chronic atrial Active fibrillation(Confirm ed) Chronic back Active pain(Confirmed) Chronic kidney Resolved disease, stage 3(Confirmed)2 Chronic Active sinusitis(Confirmed) Mucocele of nasal Active sinus(Confirmed) Gastritis(Confirmed) Active H/O renal cell Active cancer(Confirmed) History of polyp of 04/16/15 Active colon3 Type 2 diabetes Active mellitus with hyperglycemia(Confir med) Long-term insulin Active use(Confirmed) Lumbar Active spondylosis(Confirme d) Mixed 04/12/13 Active hyperlipidemia(Confi rmed)4 Onychomycosis of Active toenails5 Overweight(Confirmed Active ) Medicare annual Active wellness visit, subsequent(Confirmed ) Left renal Active mass(Confirmed) Screening for Active prostate cancer(Confirmed) Tension Active [...] Originally documented as CLINDAMYCIN HCL. nausea Medications acetaminophen-tramadol 325 mg-37.5 mg oral tablet 1 tab, PO, Q8H, PRN Pain, # 40 tab, 0 Refill(s) Start Date: 01/03/19 Stop Date: 01/03/20 Status: Ordered baclofen 10 mg oral tablet 10 mg=1 tab, PO, BID, PRN muscle spasm, # 180 tab, 3 Refill(s), Pharmacy: [facility] [id number] Start Date: 11/15/18 Stop Date: 11/15/18 Status: Completed baclofen 20 mg oral tablet 20 mg=1 tab, PO, BID, PRN Spasms, # 40 tab, 0 Refill(s), Pharmacy: [facility] [id number] Start Date: 01/03/19 Status: Ordered enalapril 10 mg oral tablet 10 mg=1 tab, PO, Daily, # 90 tab, 1 Refill(s), Pharmacy: [facility] [id number] Start Date: 01/03/19 Status: Ordered Excedrin Tension Headache Geltab 0 Refill(s) Start Date: 01/03/19 Status: Ordered repaglinide 2 mg oral tablet 2 mg=1 tab, PO, TID-Before Meals, # 270 tab, 3 Refill(s), Pharmacy: [facility] [id number] Start Date: 11/15/18 Stop Date: 11/15/18 Status: Completed Results No data available for this section Immunizations Given and Recorded Vaccine Date Status Refusal Reason influenza virus vaccine, inactivated1 08/18/18 Recorded influenza virus vaccine, inactivated 07/20/17 Given influenza virus vaccine, inactivated 08/19/15 Given influenza virus vaccine, inactivated2 07/24/14 Given pneumococcal 13-valent vaccine3 07/06/16 Recorded Hx influenza vaccine-unspecified4 07/06/16 Recorded Hx influenza vaccine-unspecified5 07/24/14 Given zoster vaccine live6 07/06/16 Recorded 1Location History: [place] 2Result Comment: fluzone high dose [[id number]]. Migrated from [employer] ; Data migrated from [employer] on 12/16/2015. 3Location History: Pharmacy 4Location History: Pharmacy 5Result Comment: done. Migrated from OBS ; Data migrated from [employer] on 12/16/2015. 6Location History: Pharmacy Procedures Procedure [...] scaffolds. Alcohol Never Smoking Status Never smoker; Ready to change: No; Concerns about tobacco use in household: No; Exposure to Tobacco Smoke None; Cigarette Smoking Last 365 Days No; Reg Smoking Cessation Counseling No entered on: 01/05/19 Assessment and Plan No data available for this section
--- OUTSIDE RECORDS SUMMARY | 2019-05-06 21:43 | XMS REPORT | Summary of Care ---
Author Author [facility] Care [facility] Organization [facility] Address Unknown Phone Unavailable Encounter HQ Sp_izzy(FIN) [id number] Date(s): 10/03/17 - 10/04/17 [facility] [address], [address] [place] [address]- [phone] Vital Signs No data available for this section Problem List Condition Effective Dates Status Health Status Informant Hx of unilateral Active nephrectomy(Confirme d) Benign hypertension Active with chronic kidney disease, stage III(Confirmed) Benign prostatic 11/14/59 Active hyperplasia(Confirme d)1 Symptomatic Active bradycardia(Confirme d) Cardiac Active pacemaker(Confirmed) Cervical Active spondylosis(Confirme d) Chronic atrial Active fibrillation(Confirm ed) Chronic back Active pain(Confirmed) Chronic kidney Active disease, stage 3(Confirmed)2 Chronic Active sinusitis(Confirmed) Mucocele of nasal Active sinus(Confirmed) Gastritis(Confirmed) Active H/O renal cell Active cancer(Confirmed) History of polyp of 04/16/15 Active colon3 Hoarseness of Active voice(Confirmed) Type 2 diabetes Active mellitus with hyperglycemia(Confir med) Iron deficiency 01/13/15 Active anemia4 Lumbar Active spondylosis(Confirme d) Mixed 04/12/13 Active hyperlipidemia(Confi rmed)5 Onychomycosis of Active toenails6 Screening for Active prostate cancer(Confirmed) Tension Active headache(Confirmed) Type 2 diabetes Active mellitus with polyneuropathy(Confi rmed) Type 2 diabetes Active mellitus with stage 3 chronic kidney disease(Confirmed) Encounter for Active immunization(Confirm ed) 1Data migrated from [employer] on 05/21/15. 2Data migrated from [employer] on 04/12/15. 3Data migrated from [employer] on 05/21/15. 4Data migrated from [employer] on 05/21/15. 5Data migrated from [employer] on 05/21/15. 6Data migrated from [employer] on 04/12/15. Allergies, Adverse Reactions, Alerts Substance Reaction Severity Status clindamycin1 nausea Active 1Data migrated from [employer] on 05/22/15. Originally documented as CLINDAMYCIN HCL. nausea Medications Ultracet oral tablet 1 tab, PO, Q8H, PRN Pain, # 40 tab, 0 Refill(s) Start Date: 10/03/17 Stop Date: 10/03/18 Status: Ordered Results No data available for this section Immunizations Given and Recorded Vaccine Date Status Refusal Reason influenza virus vaccine, inactivated 07/20/17 Given influenza virus vaccine, inactivated 08/19/15 Given influenza virus vaccine, inactivated1 07/24/14 Given pneumococcal 13-valent vaccine2 07/06/16 Recorded Hx influenza vaccine-unspecified3 07/06/16 Recorded Hx influenza vaccine-unspecified4 07/24/14 Given zoster vaccine live5 07/06/16 Recorded 1Result Comment: fluzone high dose [[id number]]. Migrated from OBS ; Data migrated from [employer] on 12/16/2015. 2Location History: Pharmacy 3Location History: Pharmacy 4Result Comment: done. Migrated from OBS ; Data migrated from [employer] on 12/16/2015. 5Location History: Pharmacy Procedures Procedure Date Related Diagnosis Body Site Comprehensive eye examination1 05/03/17 Implantation of cardiac pacemaker 03/2016 Nephrectomy2 10/24/15 Colonoscopy3 05/28/15 Decompression laminectomy of lumbar spine TURP - Transurethral resection of prostate 1no retinopathy, cataract OD 2Right kidney due to right renal cancer 3polyps, diverticulosis, repeat in 3 years Social History Social History Type Response Substance Abuse Use: None. Exercise Exercise duration: 25. Exercise frequency: 1-2 times/week. Exercise type: Walking. 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 Alcohol Never Smoking Status Never smoker; Exposure to Tobacco Smoke None; Cigarette Smoking Last 365 Days No; Reg Smoking Cessation Counseling No Assessment and Plan No data available for this section
--- OUTSIDE RECORDS SUMMARY | 2019-05-06 21:43 | XMS REPORT | Summary of Care ---
Author Author [facility] Care [facility] Organization [facility] Address Unknown Phone Unavailable Care Team Providers Care Air Cargo Ground Operations Supervisor Name Role Phone Noemi Golden PCP Encounter HQ Shelleyntr_izzy(FIN) [id number] Date(s): 09/26/18 - 09/27/18 [facility] [address] [place] [address]- Vital Signs No data available for this [...] [employer] on 05/21/15. 5Data migrated from [employer]ty on 04/12/15. Allergies, Adverse Reactions, Alerts Substance Reaction Severity Status clindamycin1 nausea Active 1Data migrated from [employer] on 05/22/15. Originally documented as CLINDAMYCIN HCL. [...] History: [place] 2Result Comment: fluzone high dose [[id number]]. Migrated from OBS ; Data migrated from [employer] on 12/16/2015. 3Location History: Pharmacy 4Location History: Pharmacy 5Result Comment: done. Migrated from OBS ; Data migrated from [employer] on 12/16/2015. 6Location History: Pharmacy Procedures Procedure [...]
--- OUTSIDE RECORDS SUMMARY | 2019-05-06 21:43 | XMS REPORT | Summary of Care ---
Author Author [facility] Organization [facility] Address Unknown Phone Unavailable Encounter HQ Sp_izzy(FIN) [id number] Date(s): 10/25/17 - 10/26/17 [facility] [address] [place] [address]- [phone] Vital Signs No data available for this [...] [employer] on 05/21/15. 6Data migrated from [employer] on 04/12/15. Allergies, Adverse Reactions, Alerts Substance Reaction Severity Status clindamycin1 nausea Active 1Data migrated from [employer] on 05/22/15. Originally documented as CLINDAMYCIN HCL. nausea Medications enalapril 5 mg oral tablet 5 mg=1 tab, PO, Daily, # 90 tab, 1 Refill(s), Pharmacy: [facility] [id number] Start Date: 10/25/17 Stop Date: 01/22/18 Status: Ordered Results No data available for this section Immunizations Given and Recorded Vaccine Date Status Refusal Reason influenza virus vaccine, inactivated 07/20/17 Given influenza virus vaccine, inactivated 08/19/15 Given influenza virus vaccine, inactivated1 07/24/14 Given pneumococcal 13-valent vaccine2 07/06/16 Recorded Hx influenza vaccine-unspecified3 07/06/16 Recorded Hx influenza vaccine-unspecified4 07/24/14 Given zoster vaccine live5 07/06/16 Recorded 1Result Comment: fluzone high dose [[id number]]. Migrated from OBS ; Data migrated from [employer] on 12/16/2015. 2Location History: Pharmacy 3Location History: Pharmacy 4Result Comment: done. Migrated from OBS ; Data migrated from [employer] on 12/16/2015. 5Location History: Pharmacy Procedures Procedure [...]
--- OUTSIDE RECORDS SUMMARY | 2019-05-06 21:43 | XMS REPORT | Summary of Care ---
Author Author [facility] Care [facility] Organization [facility] Address Unknown Phone Unavailable Care Team Providers Care Planer Mill Grader Name Role Phone Noemi Golden PCP Encounter HQ Shelleyntr_izzy(FIN) [id number] Date(s): 09/20/18 - 09/21/18 [facility] [address] [place] [address]- Vital Signs No data available for this [...] [employer] on 05/21/15. 5Data migrated from [employer] on 04/12/15. Allergies, Adverse Reactions, Alerts Substance Reaction Severity Status clindamycin1 nausea Active 1Data migrated from [employer] on 05/22/15. Originally documented as CLINDAMYCIN HCL. nausea Medications Lyrica 50 mg oral capsule 50 mg=1 cap, PO, BID, # 180 cap, 1 Refill(s) Start Date: 09/21/18 Stop Date: 10/03/18 Status: Discontinued Results No data available for this section Immunizations Given and Recorded Vaccine Date Status Refusal Reason influenza virus vaccine, inactivated1 08/18/18 Recorded influenza virus vaccine, inactivated 07/20/17 Given influenza virus vaccine, inactivated 08/19/15 Given influenza virus vaccine, inactivated2 07/24/14 Given zoster vaccine live3 07/06/16 Recorded Hx influenza vaccine-unspecified4 07/06/16 Recorded Hx influenza vaccine-unspecified5 07/24/14 Given pneumococcal 13-valent vaccine6 07/06/16 Recorded 1Location History: [place] 2Result Comment: fluzone high dose [[id number]]. Migrated from [employer] ; Data migrated from [employer] on 12/16/2015. 3Location History: Pharmacy 4Location History: Pharmacy 5Result Comment: done. Migrated from [employer] ; Data migrated from [employer] on 12/16/2015. 6Location History: Pharmacy Procedures Procedure [...] kidney. 2left kidney 3no retinopathy, cataract OD 4Prevnar-13 5Right kidney due to right renal cancer [...]
--- OUTSIDE RECORDS SUMMARY | 2019-05-06 21:43 | XMS REPORT | Summary of Care ---
Author Author [facility] Organization [facility] Address Unknown Phone Unavailable Encounter SIMRAN Blake(MALCOLM) [id number] Date(s): 03/13/19 - 03/13/19 [facility] [address] Discharge Disposition: Home or Self Care Attending Physician: Chetan Whittaker MD Referring Physician: Chetan Whittaker MD Vital Signs Most recent to 1 2 oldest [Reference Range]: Height 172.72 cm 172.72 cm (03/13/19 5:46 AM) (03/08/19 12:26 PM) Blood Pressure 163/80 mmHg [90-140/60-90 mmHg] *HI* (03/13/19 5:46 AM) Respiratory Rate 17 BRMIN [14-20 BRMIN] (03/13/19 5:46 AM) Peripheral Pulse 57 bpm Rate [60-100 bpm] *LOW* (03/13/19 5:46 AM) Weight 74.545 kg 74.545 kg (03/13/19 5:46 AM) (03/08/19 12:26 PM) Body Mass Index 24.99 m2 24.99 m2 (03/13/19 5:46 AM) (03/08/19 12:26 PM) Problem List Condition Effective Dates Status Health [...] documented as CLINDAMYCIN HCL. nausea Medications No Known Medications Results Most recent to 1 oldest [Reference Range]: INR [0.85-1.17] 1.14 (03/13/19 6:10 AM) PT [12.0-14.7 14.4 seconds seconds] (03/13/19 6:10 AM) PTT [22.9-35.8 35.9 seconds seconds] *HI* (03/13/19 6:10 AM) Immunizations Given and Recorded Vaccine Date Status Refusal Reason influenza virus vaccine, inactivated1 08/18/18 Recorded influenza virus vaccine, inactivated 07/20/17 Given influenza virus vaccine, inactivated 08/19/15 Given influenza virus vaccine, inactivated2 07/24/14 Given zoster vaccine live3 07/06/16 Recorded Hx influenza vaccine-unspecified4 07/06/16 Recorded Hx influenza vaccine-unspecified5 07/24/14 Given pneumococcal 13-valent vaccine6 07/06/16 Recorded 1Location History: [place] 2Result Comment: fluzone high dose [[id number]]. Migrated from OBS ; Data migrated from ebindle on 12/16/2015. 3Location History: Pharmacy 4Location History: Pharmacy 5Result Comment: done. Migrated from OBS ; Data migrated from ebindle on 12/16/2015. 6Location History: Pharmacy Procedures Procedure [...] Reg Smoking Cessation Counseling No entered on: 03/13/19 Assessment and Plan No data available for this section
--- OUTSIDE RECORDS SUMMARY | 2019-05-06 21:43 | XMS REPORT | Summary of Care ---
Author Author [facility] Organization [facility] Address Unknown Phone Unavailable Encounter HQ Sp_izzy(FIN) [id number] Date(s): 10/25/17 - 10/26/17 [facility] [address], [address] [place] [address]- [phone] Vital Signs No data available for this [...] GE Centricity on 05/21/15. 6Data migrated from [employer]city on 04/12/15. Allergies, Adverse Reactions, Alerts Substance Reaction Severity Status clindamycin1 nausea Active 1Data migrated from GE [employer] on 05/22/15. Originally documented as CLINDAMYCIN HCL. [...] 07/06/16 Recorded 1Result Comment: fluzone high dose [[id number]]. Migrated from OBS ; Data migrated from [employer] on 12/16/2015. 2Location History: Pharmacy 3Location History: Pharmacy 4Result Comment: done. Migrated from OBS ; Data migrated from [employer]city on 12/16/2015. 5Location History: Pharmacy Procedures Procedure [...]
--- OUTSIDE RECORDS SUMMARY | 2019-05-06 21:43 | XMS REPORT | Summary of Care ---
Author Author [facility] Organization [facility] Address Unknown Phone Unavailable Encounter SIMRAN Blake(FIN) [id number] Date(s): 01/05/19 - 01/05/19 [facility] [address], [address] [place] [address] [phone] Discharge Disposition: Home or Self Care Attending Physician: Joey Reyes MD Vital Signs Most recent to 1 oldest [Reference Range]: Height 172.72 cm (01/05/19 9:38 AM) Blood Pressure 176/79 mmHg [90-140/60-90 mmHg] *HI* (01/05/19 9:38 AM) Peripheral Pulse 73 bpm Rate [60-100 bpm] (01/05/19 9:38 AM) Weight 74.261 kg (01/05/19 9:38 AM) Body Mass Index 24.89 m2 (01/05/19 9:38 AM) Problem List Condition Effective Dates Status [...] HCL. nausea Medications No Known Medications Results No data available for this section [...] History: [facility] 2Result Comment: fluzone high dose [[id number]]. Migrated from OBS ; Data migrated from ChoreMonst[employer]ity on 12/16/2015. 3Location History: Pharmacy 4Location History: Pharmacy 5Result Comment: done. Migrated from OBS ; Data migrated from [employer] on 12/16/2015. 6Location History: Pharmacy Procedures Procedure [...]
--- OUTSIDE RECORDS SUMMARY | 2019-05-06 21:43 | XMS REPORT | Summary of Care ---
Author Author [facility] Organization [facility] Address Unknown Phone Unavailable Care Team Providers Care Delivery Of Shopping News Name Role Phone Noemi Golden PCP Encounter HQ Lou([facility]) [id number] Date(s): 09/26/18 - 09/26/18 [facility] [address] [place] [address]- Encounter Diagnosis Other specified disorders of kidney and ureter (Final) - 09/29/18 Diverticulosis of large intestine without perforation or abscess without bleedin g (Final) - Benign prostatic hyperplasia without lower urinary tract symptoms (Final) - Personal history of other malignant neoplasm of kidney (Final) - Acquired absence of kidney (Final) - Discharge Disposition: Home or Self Care Attending Physician: Noemi Golden MD Referring Physician: Noemi Golden MD Vital Signs No data available for this [...] Originally documented as CLINDAMYCIN HCL. nausea Medications Omnipaque 300 injectable solution 100 mL, Route: IV, Drug Form: SOLN, Dosing Weight 75.511, kg, ONCALL, GFR > 45 mL/min, Start date: 09/26/18 8:00:00 MICROFILM MOUNTER, Duration: 1 doses or times Notes: (Same as:Omnipaque 300).WASTE: F/P - Black; E - Municipal Trash Bin Start Date: 09/26/18 Stop Date: 03/21/19 Status: Discontinued Results Most recent to 1 oldest [Reference Range]: eGFR 59 mL/min/1.73m2 1 *NA* (09/26/18 8:33 AM) POC Creatinine 1.2 mg/dL [0.5-1.4 mg/dL] (09/26/18 8:33 AM) 1Result Comment: The eGFR is calculated using [...] be mul tiplied by the estimated BMI. Immunizations Given and Recorded Vaccine Date Status Refusal Reason influenza virus vaccine, inactivated1 08/18/18 Recorded influenza virus vaccine, inactivated 07/20/17 Given influenza virus vaccine, inactivated 08/19/15 Given influenza virus vaccine, inactivated2 07/24/14 Given zoster vaccine live3 07/06/16 Recorded Hx influenza vaccine-unspecified4 07/06/16 Recorded Hx influenza vaccine-unspecified5 07/24/14 Given pneumococcal 13-valent vaccine6 07/06/16 Recorded 1Location History: [facility] 2Result Comment: fluzone high dose [[id number]]. Migrated from [email or web address] ; Data migrated from [email or web address] on 12/16/2015. 3Location History: Pharmacy 4Location History: Pharmacy 5Result Comment: done. Migrated from [email or web address] ; Data migrated from [email or web address] on 12/16/2015. 6Location History: Pharmacy Procedures Procedure [...]
--- OUTSIDE RECORDS SUMMARY | 2019-05-06 21:44 | XMS REPORT | Summary of Care ---
Author Author [facility] Organization [facility] Address Unknown Phone Unavailable Encounter HQ Sp_izzy(FIN) [id number] Date(s): 10/28/17 - 10/29/17 [facility] [address], [address] [place] [address]- [phone] Vital Signs No data available for this [...] GE Centricity on 05/21/15. 6Data migrated from GE [employer] on 04/12/15. Allergies, Adverse Reactions, Alerts Substance Reaction Severity Status clindamycin1 nausea Active 1Data migrated from [employer] on 05/22/15. Originally documented as CLINDAMYCIN HCL. nausea Medications baclofen 10 mg oral tablet 10 mg=1 tab, PO, BID, PRN muscle spasm, # 40 tab, 0 Refill(s), Pharmacy: [facility] [id number] Start Date: 10/29/17 Status: Ordered Results No data available for this section Immunizations Given and Recorded Vaccine Date Status Refusal Reason influenza virus vaccine, inactivated 07/20/17 Given influenza virus vaccine, inactivated 08/19/15 Given influenza virus vaccine, inactivated1 07/24/14 Given pneumococcal 13-valent vaccine2 07/06/16 Recorded Hx influenza vaccine-unspecified3 07/06/16 Recorded Hx influenza vaccine-unspecified4 07/24/14 Given zoster vaccine live5 07/06/16 Recorded 1Result Comment: fluzone high dose [[id number]]. Migrated from OBS ; Data migrated from GE [employer] on 12/16/2015. 2Location History: Pharmacy 3Location History: Pharmacy 4Result Comment: done. Migrated from OBS ; Data migrated from GE [employer] on 12/16/2015. 5Location History: Pharmacy Procedures Procedure [...]
--- OUTSIDE RECORDS SUMMARY | 2019-05-06 21:44 | XMS REPORT | Summary of Care ---
Author Author [facility] Organization [facility] Address Unknown Phone Unavailable Care Team Providers Care Sessions Clerk Name Role Phone Noemi Golden PCP Encounter HQ Sp_izzy(FIN) [id number] Date(s): 09/29/18 - 09/29/18 [facility] [address] [place] [address]- [phone] Discharge Disposition: Home or Self Care Attending Physician: Joey Reyes MD Vital Signs Most recent to 1 oldest [Reference Range]: Height 172.72 cm (09/29/18 1:03 PM) Blood Pressure 147/80 mmHg [90-140/60-90 mmHg] *HI* (09/29/18 1:03 PM) Peripheral Pulse 80 bpm Rate [60-100 bpm] (09/29/18 1:03 PM) Weight 74.659 kg (09/29/18 1:03 PM) Body Mass Index 25.03 m2 (09/29/18 1:03 PM) Problem List Condition Effective Dates Status [...] Most recent to 1 oldest [Reference Range]: POC UA Bili Negative [Negative] *NA* (09/29/18 12:56 PM) POC UA Bld Negative [Negative] *NA* (09/29/18 12:56 PM) POC UA Color Yellow [Yellow] *NA* (09/29/18 12:56 PM) POC UA Glu [Negative >=1000 mg/dL mg/dL] *ABN* (09/29/18 12:56 PM) POC UA Ket [Negative Negative mg/dL mg/dL] *NA* (09/29/18 12:56 PM) POC UA LeukEst Trace [Negative] *ABN* (09/29/18 12:56 PM) POC UA Nit Negative [Negative] *NA* (09/29/18 12:56 PM) POC UA pH [5.0-8.0] 5.5 (09/29/18 12:56 PM) POC UA Prot Negative mg/dL [Negative mg/dL] *NA* (09/29/18 12:56 PM) POC UA SG [<=1.030] <=1.005 *NA* (09/29/18 12:56 PM) POC UA Turbidity Clear [Clear] *NA* (09/29/18 12:56 PM) POC UA Uro [0.1-1.0 0.2 EU/dL EU/dL] (09/29/18 12:56 PM) Immunizations Given and Recorded Vaccine Date Status Refusal Reason influenza virus vaccine, inactivated1 08/18/18 Recorded influenza virus vaccine, inactivated 07/20/17 Given influenza virus vaccine, inactivated 08/19/15 Given influenza virus vaccine, inactivated2 07/24/14 Given zoster vaccine live3 07/06/16 Recorded Hx influenza vaccine-unspecified4 07/06/16 Recorded Hx influenza vaccine-unspecified5 07/24/14 Given pneumococcal 13-valent vaccine6 07/06/16 Recorded 1Location History[facility] 2Result Comment: fluzone high dose [[id number]]. Migrated from OBS ; Data migrated from [employer] on 12/16/2015. 3Location History: Pharmacy 4Location History: Pharmacy 5Result Comment: done. Migrated from OBS ; Data migrated from [employer] on 12/16/2015. 6Location History: Pharmacy Procedures Procedure [...]
--- OUTSIDE RECORDS SUMMARY | 2019-05-06 21:44 | XMS REPORT | Summary of Care ---
Author Author [facility] Care [facility] Organization [facility] Address Unknown Phone Unavailable Encounter HQ Lou(FIN) [id number] Date(s): 11/23/17 - 11/23/17 [facility] [address], [address] [place], [place] [address]- [phone] Attending Physician: Noemi Golden MD Vital Signs No [...] 07/06/16 Recorded 1Result Comment: fluzone high dose [[id number]]. Migrated from OBS ; Data migrated from GE Cent[employer]ity on 12/16/2015. 2Location History: Pharmacy 3Location History: Pharmacy 4Result Comment: done. Migrated from OBS ; Data migrated from GE Cent[employer]ity on 12/16/2015. 5Location History: Pharmacy Procedures Procedure Date Related Diagnosis Body Site Status Comprehensive eye examination1 05/03/17 Completed Implantation of cardiac pacemaker 03/2016 Completed Nephrectomy2 10/24/15 Completed Colonoscopy3 05/28/15 Completed Decompression laminectomy of lumbar spine Completed TURP - Transurethral resection of prostate Completed 1no retinopathy, cataract OD 2Right kidney due [...] Reg Smoking Cessation Counseling No entered on: 07/20/17 Assessment and Plan No data available for this section
--- OUTSIDE RECORDS SUMMARY | 2019-05-06 21:44 | XMS REPORT | Summary of Care ---
Author Author [facility] Organization [facility] Address Unknown Phone Unavailable Encounter HQ Sp_izzy(FIN) [id number] Date(s): 10/31/17 - 11/01/17 [facility] [address], [address] [place] [address]- [phone] Vital Signs No data available for this [...] GE Centricity on 05/21/15. 6Data migrated from [employer] on 04/12/15. Allergies, Adverse Reactions, Alerts Substance Reaction Severity Status clindamycin1 nausea Active 1Data migrated from GE [employer] on 05/22/15. Originally documented as CLINDAMYCIN HCL. [...] 07/06/16 Recorded 1Result Comment: fluzone high dose [[id number]]. Migrated from OBS ; Data migrated from [employer] on 12/16/2015. 2Location History: Pharmacy 3Location History: Pharmacy 4Result Comment: done. Migrated from OBS ; Data migrated from O[employer] on 12/16/2015. 5Location History: Pharmacy Procedures Procedure [...]
--- OUTSIDE RECORDS SUMMARY | 2019-05-06 21:44 | XMS REPORT | Summary of Care ---
Author Author [facility] Care [facility] Organization [facility] Address Unknown Phone Unavailable Encounter HQ Lou(FIN) [id number] Date(s): 11/23/17 - 11/23/17 [facility] [address], [address] [place], [place] [address]- [phone] Attending Physician: Noemi Golden MD Vital Signs [...] 07/06/16 Recorded 1Result Comment: fluzone high dose [[id number]]. Migrated from OBS ; Data migrated from [...]
--- OUTSIDE RECORDS SUMMARY | 2019-05-06 21:44 | XMS REPORT | Summary of Care ---
Author Author [facility] Care [facility] Organization [facility] Address Unknown Phone Unavailable Encounter HQ Sp_izzy(FIN) [id number] Date(s): 03/10/18 - 03/11/18 [facility] [address], [address] [place], [place] [address]- [phone] Vital Signs No data available for this [...] GE Centricity on 05/21/15. 6Data migrated from [employer] on 04/12/15. Allergies, Adverse Reactions, Alerts Substance Reaction Severity Status clindamycin1 nausea Active 1Data migrated from GE [employer] on 05/22/15. Originally documented as CLINDAMYCIN HCL. [...] 07/06/16 Recorded 1Result Comment: fluzone high dose [apy154]. Migrated from OBS ; Data migrated from [employer] on 12/16/2015. 2Location History: Pharmacy 3Location History: Pharmacy 4Result Comment: done. Migrated from OBS ; Data migrated from [employer] on 12/16/2015. 5Location History: Pharmacy Procedures Procedure [...]
--- OUTSIDE RECORDS SUMMARY | 2019-05-06 21:44 | XMS REPORT | Summary of Care ---
Author Author [facility] Care [facility] Organization [facility] Address Unknown Phone Unavailable Encounter HQ Sp_izzy(FIN) [id number] Date(s): 12/26/17 - 12/27/17 [facility] [address], [address] [place] [address]- [phone] Vital Signs No data available for this [...] GE Centricity on 05/21/15. 6Data migrated from [employer] on 04/12/15. Allergies, Adverse Reactions, Alerts Substance Reaction Severity Status clindamycin1 nausea Active 1Data migrated from GE [employer] on 05/22/15. Originally documented as CLINDAMYCIN HCL. [...] 07/06/16 Recorded 1Result Comment: fluzone high dose [[id number]]. Migrated from OBS ; Data migrated from [employer] on 12/16/2015. 2Location History: Pharmacy 3Location History: Pharmacy 4Result Comment: done. Migrated from OBS ; Data migrated from [employer] on 12/16/2015. 5Location History: Pharmacy Procedures Procedure [...]
--- OUTSIDE RECORDS SUMMARY | 2019-05-06 21:44 | XMS REPORT | Summary of Care ---
Author Author [facility] Organization [facility] Address Unknown Phone Unavailable Encounter HQ Sp_izzy(FIN) [id number] Date(s): 02/23/18 - 02/24/18 [facility] [address], [address] [place] [address]- [phone] Vital Signs No data available for this [...] GE Centricity on 05/21/15. 6Data migrated from [employer] on 04/12/15. Allergies, Adverse Reactions, Alerts Substance Reaction Severity Status clindamycin1 nausea Active 1Data migrated from GE [employer] on 05/22/15. Originally documented as CLINDAMYCIN HCL. [...] 07/06/16 Recorded 1Result Comment: fluzone high dose [[id number]]. Migrated from OBS ; Data migrated from [employer] on 12/16/2015. 2Location History: Pharmacy 3Location History: Pharmacy 4Result Comment: done. Migrated from OBS ; Data migrated from [employer] on 12/16/2015. 5Location History: Pharmacy Procedures Procedure [...]
--- OUTSIDE RECORDS SUMMARY | 2019-05-06 21:44 | XMS REPORT | Summary of Care ---
Author Author [facility] Organization [facility] Address Unknown Phone Unavailable Encounter HQ Sp_izzy(FIN) [id number] Date(s): 11/07/17 - 11/08/17 [facility] [address], [address] [place] [address] [phone] Vital Signs No data available for this [...] GE Centricity on 05/21/15. 6Data migrated from [employer] on 04/12/15. Allergies, Adverse Reactions, Alerts Substance Reaction Severity Status clindamycin1 nausea Active 1Data migrated from GE [employer]city on 05/22/15. Originally documented as CLINDAMYCIN HCL. nausea Medications Ultracet oral tablet 1 tab, PO, Q8H, PRN Pain, # 40 tab, 0 Refill(s) Start Date: 11/08/17 Stop Date: 11/08/18 Status: Ordered Results No data available for this section Immunizations Given and Recorded Vaccine Date Status Refusal Reason influenza virus vaccine, inactivated 07/20/17 Given influenza virus vaccine, inactivated 08/19/15 Given influenza virus vaccine, inactivated1 07/24/14 Given pneumococcal 13-valent vaccine2 07/06/16 Recorded Hx influenza vaccine-unspecified3 07/06/16 Recorded Hx influenza vaccine-unspecified4 07/24/14 Given zoster vaccine live5 07/06/16 Recorded 1Result Comment: fluzone high dose [[id number]]. Migrated from OBS ; Data migrated from [employer] on 12/16/2015. 2Location History: Pharmacy 3Location History: Pharmacy 4Result Comment: done. Migrated from OBS ; Data migrated from [employer] on 12/16/2015. 5Location History: Pharmacy Procedures Procedure [...]
--- OUTSIDE RECORDS SUMMARY | 2019-05-06 21:44 | XMS REPORT | Summary of Care ---
Author Author [facility] Care [facility] Organization [facility] Address Unknown Phone Unavailable Encounter HQ Lou(FIN) [id number] Date(s): 11/23/17 - 11/23/17 [facility] [address], [address] [place], [place] [address]- [phone] Attending Physician: Noemi Golden MD Vital Signs [...] 07/06/16 Recorded 1Result Comment: fluzone high dose [[id number]]. Migrated from OBS ; Data migrated from [...]
--- OUTSIDE RECORDS SUMMARY | 2019-05-06 21:44 | XMS REPORT | Summary of Care ---
Author Author [facility] Care [facility] Organization [facility] Address Unknown Phone Unavailable Encounter HQ Sp_izzy(FIN) [id number] Date(s): 03/10/18 - 03/11/18 [facility] [address], [address] [place], [place] [address]- [phone] Vital Signs No data available for this [...] GE Centricity on 05/21/15. 6Data migrated from Miscot[employer] on 04/12/15. Allergies, Adverse Reactions, Alerts Substance Reaction Severity Status clindamycin1 nausea Active 1Data migrated from GE [employer] on 05/22/15. Originally documented as CLINDAMYCIN HCL. [...] 07/06/16 Recorded 1Result Comment: fluzone high dose [[id number]]. Migrated from OBS ; Data migrated from Miscotacity on 12/16/2015. 2Location History: Pharmacy 3Location History: Pharmacy 4Result Comment: done. Migrated from OBS ; Data migrated from M[employer]ot[employer] on 12/16/2015. 5Location History: Pharmacy Procedures Procedure [...]
--- OUTSIDE RECORDS SUMMARY | 2019-05-06 21:44 | XMS REPORT | Summary of Care ---
Author Author [facility] Care [facility] Organization [facility] Address Unknown Phone Unavailable Care Team Providers Care Pipelines Supervisor Name Role Phone Noemi Golden PCP Encounter HQ Suryar_izzy(FIN) [id number] Date(s): 10/03/18 - 10/03/18 [facility] [address] [address]- Discharge Disposition: Home or Self Care Attending Physician: Noemi Golden MD Vital Signs Most recent to 1 oldest [Reference Range]: Height 167.64 cm (10/03/18 11:21 AM) Temperature Oral 98 DegF [96.4-99.1 DegF] (10/03/18 11:21 AM) Blood Pressure 158/77 mmHg [90-140/60-90 mmHg] *HI* (10/03/18 11:21 AM) Respiratory Rate 16 BRMIN [14-20 BRMIN] (10/03/18 11:21 AM) Peripheral Pulse 61 bpm Rate [60-100 bpm] (10/03/18 11:21 AM) Weight 75.909 kg (10/03/18 11:21 AM) Body Mass Index 27.01 m2 (10/03/18 11:21 AM) Problem List Condition Effective Dates Status [...] Originally documented as CLINDAMYCIN HCL. nausea Medications glipiZIDE 10 mg oral tablet See Instructions, # 270 tab, Refill(s) 1, TAKE 1 TABLET BY MOUTH THREE TIMES DAVID LY MEALS, Pharmacy: [facility] [id number] Start Date: 04/10/19 Status: Ordered glipiZIDE 10 mg oral tablet 10 mg=1 tab, PO, TID-Meals, # 270 tab, 1 Refill(s), Pharm[place] [facility] [place] [id number] Start Date: 10/03/18 Stop Date: 03/21/19 Status: Discontinued Lyrica 50 mg oral capsule 50 mg=1 cap, PO, BID, X 30 day, # 60 cap, 0 Refill(s) Start Date: 10/03/18 Stop Date: 11/20/18 Status: Completed Results No data available for [...] History: [facility] 2Result Comment: fluzone high dose [[id number]]. Migrated from OBS ; Data migrated from [employer] on 12/16/2015. 3Location History: Pharmacy 4Location History: Pharmacy 5Result Comment: done. Migrated from OBS ; Data migrated from [employer] on 12/16/2015. 6Location History: Pharmacy Procedures Procedure [...]
--- OUTSIDE RECORDS SUMMARY | 2019-05-06 21:45 | XMS REPORT | Summary of Care ---
Author Author [facility] Organization [facility] Address Unknown Phone Unavailable Care Team Providers Care Cementer Machine Name Role Phone Noemi Golden PCP Encounter HQ Sp_izzy(FIN) [phone] Date(s): 03/20/19 - 03/21/19 [facility] [address] [employer] provided by [facility] [employer] [facility] [place] [address]- Discharge Disposition: Home or Self Care Attending Physician: John Suqires MD Referring Physician: Chetan Whittaker MD Vital Signs 1 2 3 Most recent to oldest [Reference Range]: 172.72 cm (03/20/19 11:06 AM) Height 98.3 DegF (03/21/19 4:56 PM) 99.3 DegF *HI* (03/21/19 10:51 AM) 98.1 DegF (03/21/19 7:21 AM) Temperature Oral [96.4-99.1 DegF] 153/73 mmHg *HI* (03/21/19 4:56 PM) 148/70 mmHg *HI* (03/21/19 10:51 AM) 155/84 mmHg *HI* (03/21/19 9:27 AM) Blood Pressure [90-140/60-90 mmHg] 18 BRMIN (03/21/19 4:56 PM) 18 BRMIN (03/21/19 10:51 AM) 20 BRMIN (03/21/19 7:21 AM) Respiratory Rate [14-20 BRMIN] 71 bpm (03/21/19 4:56 PM) 63 bpm (03/21/19 10:51 AM) 68 bpm (03/21/19 9:27 AM) Peripheral Pulse Rate [60-100 bpm] 74.545 kg (03/20/19 11:06 AM) Weight 24.99 m2 (03/20/19 11:06 AM) Body Mass Index Problem List Condition [...] for Active immunization(Confirm ed) 1Data migrated from [employer] on 05/21/15. 2Data migrated from [employer] on 04/12/15. 3Data migrated from [employer] on 05/21/15. 4Data migrated from [employer] on 05/21/15. 5Data migrated from [employer] on 04/12/15. Allergies, Adverse Reactions, Alerts Substance Reaction Severity Status clindamycin1 nausea Active 1Data migrated from [employer] on 05/22/15. Originally documented as CLINDAMYCIN HCL. nausea Medications acetaminophen-hydrocodone 325 mg-10 mg oral tablet 1 tab, Route: PO, Drug Form: TAB, Dosing Weight 74.545, kg, Q4H, PRN Pain Score 4-6, Start date: 03/20/19 15:15:00 CDT, Duration: 30 day, Stop date: 04/19/19 15 :14:00 CDT Notes: Do not exceed 4gm/day of acetaminophen. (Same as: Garvin 325/10) Start Date: 03/20/19 Stop Date: 03/21/19 Status: Discontinued ANES flumazenil 0.2 mg, 2 mL, Route: IVP, Drug form: INJ, PRN, Dosing Weight 74.545, kg, PRN Rylan zodiazepine Reversal, Initial dose, Start date: 03/20/19 15:35:00 CDT, Duration: 30 day, Stop date: 04/19/19 15:34:00 CDT Notes: (Same as: Romazicon) Start Date: 03/20/19 Stop Date: 03/20/19 Status: Discontinued ANES hydrALAZINE 10 mg, 0.5 mL, Route: IVP, Drug form: INJ, Q20Min, Dosing Weight 74.545, kg, PRN Elevated BP, Start date: 03/20/19 15:35:00 CDT, Duration: 2 doses or times, Stop date: Limited # of times Notes: (Same as: Apresoline)Push over 5 minutes Start Date: 03/20/19 Stop Date: 03/20/19 Status: Discontinued ANES HYDROmorphone 0.5 mg, 0.25 mL, Route: IVP, Drug form: INJ, Q5Min, Dosing Weight 74.545, kg, CT N Pain Score 7-10, Start date: 03/20/19 15:35:00 CDT, Duration: 4 doses or times , Stop date: Limited # of times Notes: Same as Dilaudid Start Date: 03/20/19 Stop Date: 03/20/19 Status: Discontinued ANES labetalol 10 mg, 2 mL, Route: IVP, Drug form: INJ, Q5Min, Dosing Weight 74.545, kg, PRN El evated BP, Start date: 03/20/19 15:35:00 CDT, Duration: 5 doses or times, Stop d ate: Limited # of times Start Date: 03/20/19 Stop Date: 03/20/19 Status: Discontinued ANES naloxone 0.4 mg, 1 mL, Route: IVP, Drug form: INJ, Q2MIN, Dosing Weight 74.545, kg, PRN N arcotic Reversal, Start date: 03/20/19 15:35:00 CDT, Duration: 8 doses or times, Stop date: Limited # of times Notes: Same as Narcan Start Date: 03/20/19 Stop Date: 03/20/19 Status: Discontinued ANES ondansetron 4 mg, 2 mL, Route: IVP, Drug form: INJ, ONCE, Dosing Weight 74.545, kg, PRN Naus ea & Vomiting, Start date: 03/20/19 15:35:00 CDT Notes: (Same as: Zofran) MEDICATION WASTE Product Size: 4 mgProduct Was amanda: ___ mg Start Date: 03/20/19 Stop Date: 03/20/19 Status: Discontinued ANES oxyCODONE 5 mg, 1 tab, Route: PO, Drug form: TAB, Q4H, Dosing Weight 74.545, kg, PRN Pain Score 4-6, Start date: 03/20/19 15:35:00 CDT, Duration: 30 day, Stop date: 04/19 15:34:00 CDT Notes: (Same as: Roxicodone) Start Date: 03/20/19 Stop Date: 03/20/19 Status: Discontinued ANES oxyCODONE 10 mg, 2 tab, Route: PO, Drug form: TAB, Q4H, Dosing Weight 74.545, kg, PRN Pain Score 7-10, Start date: 03/20/19 15:35:00 CDT, Duration: 30 day, Stop date: 05/02 15:34:00 CDT Notes: (Same as: Roxicodone) Start Date: 03/20/19 Stop Date: 03/20/19 Status: Discontinued ANES promethazine 6.25 mg, 0.25 mL, Route: IVPB, Drug form: INJ, ONCE, Dosing Weight 74.545, kg, P RN Nausea & Vomiting, Start date: 03/20/19 15:35:00 CDT Notes: Do not give IV push. (Same as: Phenergan) Start Date: 03/20/19 Stop Date: 03/20/19 Status: Discontinued baclofen 5 mg oral tablet 5 mg=1 tab, PO, BID, PRN Spasm, 0 Refill(s) Start Date: 03/21/19 Stop Date: 03/21/19 Status: Discontinued Basaglar KwikPen 12 unit, SUB-Q, Bedtime, 0 Refill(s) Start Date: 03/21/19 Status: Ordered Dextrose 50% Syringe 25 gm, 50 mL, Route: IVP, Drug Form: INJ, Dosing Weight 74.545, kg, PRN, PRN Blo od Glucose Results, Start date: 03/20/19 21:32:00 CDT, Duration: 30 day, Stop da te: 04/19/19 21:31:00 CDT Start Date: 03/20/19 Stop Date: 03/21/19 Status: Discontinued Dextrose 50% Syringe 12.5 gm, 25 mL, Route: IVP, Drug Form: INJ, Dosing Weight 74.545, kg, PRN, PRN B lood Glucose Results, Start date: 03/20/19 21:32:00 CDT, Duration: 30 day, Stop date: 04/19/19 21:31:00 CDT Start Date: 03/20/19 Stop Date: 03/21/19 Status: Discontinued Dextrose 50% Syringe 25 gm, 50 mL, Route: IVP, Drug Form: INJ, Dosing Weight 74.545, kg, PRN, PRN Blo od Glucose Results, Start date: 03/20/19 15:59:00 CDT, Duration: 30 day, Stop da te: 04/19/19 15:58:00 CDT Start Date: 03/20/19 Stop Date: 03/21/19 Status: Discontinued Dextrose 50% Syringe 12.5 gm, 25 mL, Route: IVP, Drug Form: INJ, Dosing Weight 74.545, kg, PRN, PRN B lood Glucose Results, Start date: 03/20/19 15:59:00 CDT, Duration: 30 day, Stop date: 04/19/19 15:58:00 CDT Start Date: 03/20/19 Stop Date: 03/21/19 Status: Discontinued Dextrose 50% Syringe 25 gm, 50 mL, Route: IVP, Drug Form: INJ, Dosing Weight 74.545, kg, PRN, PRN Blo od Glucose Results, Start date: 03/20/19 16:01:00 CDT, Duration: 30 day, Stop da te: 04/19/19 16:00:00 CDT Start Date: 03/20/19 Stop Date: 03/21/19 Status: Discontinued Dextrose 50% Syringe 12.5 gm, 25 mL, Route: IVP, Drug Form: INJ, Dosing Weight 74.545, kg, PRN, PRN B lood Glucose Results, Start date: 03/20/19 16:01:00 CDT, Duration: 30 day, Stop date: 04/19/19 16:00:00 CDT Start Date: 03/20/19 Stop Date: 03/21/19 Status: Discontinued docusate 100 mg, 1 cap, Route: PO, Drug form: CAP, BID, Dosing Weight 74.545, kg, Start d ate: 03/20/19 17:00:00 CDT, Duration: 30 day, Stop date: 04/19/19 9:00:00 CDT Notes: (Same as: Colace) (Do Not Crush) Start Date: 03/20/19 Stop Date: 03/21/19 Status: Discontinued Eliquis 5 mg oral tablet 5 mg, PO, Q12H, 0 Refill(s) Start Date: 03/21/19 Status: Ordered enalapril 10 mg, 1 tab, Route: PO, Drug form: TAB, Daily, Dosing Weight 74.545, kg, Start date: 03/21/19 9:00:00 CDT, Duration: 30 day, Stop date: 04/19/19 9:00:00 CDT Notes: (Same as: Vasotec) Start Date: 03/21/19 Stop Date: 03/20/19 Status: Canceled enalapril 10 mg, PO, Daily, 0 Refill(s) Start Date: 03/21/19 Status: Ordered enalapril 10 mg, 1 tab, Route: PO, Drug form: TAB, Daily, Dosing Weight 74.545, kg, Priori ty: STAT, Start date: 03/20/19 21:31:00 CDT, Duration: 30 day, Stop date: 9:00:00 CDT Notes: (Same as: Vasotec) Start Date: 03/20/19 Stop Date: 03/21/19 Status: Discontinued fluticasone nasal 0.05 mg/inh spray 2 spray, Route: NASAL, Drug Form: SPRY, Dosing Weight 74.545, kg, Daily, Start d ate: 03/21/19 9:00:00 CDT, Duration: 30 day, Stop date: 04/19/19 9:00:00 CDT Notes: (Same as: Flonase) Start Date: 03/21/19 Stop Date: 03/21/19 Status: Discontinued glipiZIDE 10 mg, PO, Daily, 0 Refill(s) Start Date: 03/21/19 Status: Ordered glucagon 1 mg, Route: IM, Drug form: PDR/INJ, PRN, Dosing Weight 74.545, kg, PRN Blood Gl ucose Results, Start date: 03/20/19 21:32:00 CDT, Duration: 30 day, Stop date: 0 04/19/19 21:31:00 CDT Start Date: 03/20/19 Stop Date: 03/21/19 Status: Discontinued glucagon 1 mg, Route: IM, Drug form: PDR/INJ, PRN, Dosing Weight 74.545, kg, PRN Blood Gl ucose Results, Start date: 03/20/19 15:59:00 CDT, Duration: 30 day, Stop date: 0 04/19/19 15:58:00 CDT Start Date: 03/20/19 Stop Date: 03/21/19 Status: Discontinued glucagon 1 mg, Route: IM, Drug form: PDR/INJ, PRN, Dosing Weight 74.545, kg, PRN Blood Gl ucose Results, Start date: 03/20/19 16:01:00 CDT, Duration: 30 day, Stop date: 0 04/19/19 16:00:00 CDT Start Date: 03/20/19 Stop Date: 03/21/19 Status: Discontinued hydromorphone 1 mg, 0.5 mL, Route: IVP, Drug form: INJ, Q4H, Dosing Weight 74.545, kg, PRN Jude n Score 7-10, Start date: 03/20/19 15:15:00 CDT, Duration: 30 day, Stop date: 15:14:00 CDT Notes: Same as Dilaudid Start Date: 03/20/19 Stop Date: 03/21/19 Status: Discontinued insulin lispro 2 unit, 0.02 mL, Route: SUB-Q, Drug form: SOLN, Bedtime, Dosing Weight 74.545, k g, PRN Blood Glucose Results, Start date: 03/20/19 21:32:00 CDT, Duration: 30 da y, Stop date: 04/19/19 21:31:00 CDT Notes: (Same as: Humalog) Roll in palms of hands gently; Do not shake vigorously . WASTE: F/P - Black; E - [employer] Trash BinStable for 28 days at room tempera ture.Expires in days from Date Start Date: 03/20/19 Stop Date: 03/21/19 Status: Discontinued insulin lispro 1 unit, 0.01 mL, Route: SUB-Q, Drug form: SOLN, Bedtime, Dosing Weight 74.545, k g, PRN Blood Glucose Results, Start date: 03/20/19 21:32:00 CDT, Duration: 30 da y, Stop date: 04/19/19 21:31:00 CDT Notes: (Same as: Humalog) Roll in palms of hands gently; Do not shake vigorously . WASTE: F/P - Black; E - [employer] Trash BinStable for 28 days at room tempera ture.Expires in days from Date Start Date: 03/20/19 Stop Date: 03/21/19 Status: Discontinued insulin lispro 4 unit, 0.04 mL, Route: SUB-Q, Drug form: SOLN, Bedtime, Dosing Weight 74.545, k g, PRN Blood Glucose Results, Start date: 03/20/19 21:32:00 CDT, Duration: 30 da y, Stop date: 04/19/19 21:31:00 CDT Notes: (Same as: Humalog) Roll in palms of hands gently; Do not shake vigorously . WASTE: F/P - Black; E - [employer] Trash BinStable for 28 days at [facility].Expires in days from Date Start Date: 03/20/19 Stop Date: 03/21/19 Status: Discontinued insulin lispro 3 unit, 0.03 mL, Route: SUB-Q, Drug form: SOLN, Bedtime, Dosing Weight 74.545, k g, PRN Blood Glucose Results, Start date: 03/20/19 21:32:00 CDT, Duration: 30 da y, Stop date: 04/19/19 21:31:00 CDT Notes: (Same as: Humalog) Roll in palms of hands gently; Do not shake vigorously . WASTE: F/P - Black; E - [employer] Trash BinStable for 28 days at [facility].Expires in days from Date Start Date: 03/20/19 Stop Date: 03/21/19 Status: Discontinued insulin lispro 5 unit, 0.05 mL, Route: SUB-Q, Drug form: SOLN, TID-Before Meals, Dosing Weight 74.545, kg, PRN Blood Glucose Results, Start date: 03/20/19 16:01:00 CDT, Durati on: 30 day, Stop date: 04/19/19 16:00:00 CDT Notes: (Same as: Humalog) Roll in palms of hands gently; Do not shake vigorously . WASTE: F/P - Black; E - [employer] Trash BinStable for 28 days at [facility].Expires in days from Date Start Date: 03/20/19 Stop Date: 03/21/19 Status: Discontinued insulin lispro 4 unit, 0.04 mL, Route: SUB-Q, Drug form: SOLN, TID-Before Meals, Dosing Weight 74.545, kg, PRN Blood Glucose Results, Start date: 03/20/19 16:01:00 CDT, Durati on: 30 day, Stop date: 04/19/19 16:00:00 CDT Notes: (Same as: Humalog) Roll in palms of hands gently; Do not shake vigorously . WASTE: F/P - Black; E - [employer] Trash BinStable for 28 days at room [facility].Expires in days from Date Start Date: 03/20/19 Stop Date: 03/21/19 Status: Discontinued insulin lispro 3 unit, 0.03 mL, Route: SUB-Q, Drug form: SOLN, TID-Before Meals, Dosing Weight 74.545, kg, PRN Blood Glucose Results, Start date: 03/20/19 16:01:00 CDT, Durati on: 30 day, Stop date: 04/19/19 16:00:00 CDT Notes: (Same as: Humalog) Roll in palms of hands gently; Do not shake vigorously . WASTE: F/P - Black; E - [employer] Trash BinStable for 28 days at room [facility].Expires in days from Date Start Date: 03/20/19 Stop Date: 03/21/19 Status: Discontinued insulin lispro 2 unit, 0.02 mL, Route: SUB-Q, Drug form: SOLN, TID-Before Meals, Dosing Weight 74.545, kg, PRN Blood Glucose Results, Start date: 03/20/19 16:01:00 CDT, Durati on: 30 day, Stop date: 04/19/19 16:00:00 CDT Notes: (Same as: Humalog) Roll in palms of hands gently; Do not shake vigorously . WASTE: F/P - Black; E - Municipal Trash BinStable for 28 days at room [facility].Expires in days from Date Start Date: 03/20/19 Stop Date: 03/21/19 Status: Discontinued insulin lispro 1 unit, 0.01 mL, Route: SUB-Q, Drug form: SOLN, TID-Before Meals, Dosing Weight 74.545, kg, PRN Blood Glucose Results, Start date: 03/20/19 16:01:00 CDT, Durati on: 30 day, Stop date: 04/19/19 16:00:00 CDT Notes: (Same as: Humalog) Roll in palms of hands gently; Do not shake vigorously . WASTE: F/P - Black; E - [employer] Trash BinStable for 28 days at room tempera ture.Expires in days from Date Start Date: 03/20/19 Stop Date: 03/21/19 Status: Discontinued Lantus 100 units/mL 10 unit, 0.1 mL, Route: SUB-Q, Drug form: SOLN, Bedtime, Dosing Weight 74.545, k g, Start date: 03/20/19 21:00:00 CDT, Duration: 30 day, Stop date: 04/18/19 21:0 0:00 CDT Start Date: 03/20/19 Stop Date: 03/21/19 Status: Discontinued Lyrica 50 mg, 1 cap, Route: PO, Drug form: CAP, BID, Dosing Weight 74.545, kg, Start da te: 03/20/19 17:00:00 CDT, Duration: 30 day, Stop date: 04/19/19 9:00:00 CDT Notes: Same as Lyrica Start Date: 03/20/19 Stop Date: 03/21/19 Status: Discontinued Lyrica 50 mg oral capsule 50 mg=1 cap, PO, BID, 0 Refill(s) Start Date: 03/21/19 Status: Ordered Norvasc 10 mg, 1 tab, Route: PO, Drug form: TAB, Daily, Dosing Weight 74.545, kg, Priori ty: STAT, Start date: 03/20/19 21:37:00 CDT, Duration: 30 day, Stop date: 9:00:00 CDT Notes: (Same as: Norvasc) Start Date: 03/20/19 Stop Date: 03/21/19 Status: Discontinued ondansetron 4 mg, 2 mL, Route: IVP, Drug form: INJ, Q8H, Dosing Weight 74.545, kg, PRN Nause a & Vomiting, Start date: 03/20/19 15:59:00 CDT, Duration: 30 day, Stop date: 04/19/19 15:58:00 CDT Notes: (Same as: Zofran) MEDICATION WASTE Product Size: 4 mgProduct Was amanda: ___ mg Start Date: 03/20/19 Stop Date: 03/21/19 Status: Discontinued pantoprazole 40 mg, 1 tab, Route: PO, Drug form: ECTAB, Daily, Dosing Weight 74.545, kg, Star t date: 03/21/19 9:00:00 CDT, Duration: 30 day, Stop date: 04/19/19 9:00:00 CDT Notes: Tablet should not be chewed or crushed.(Same as: Protonix) Start Date: 03/21/19 Stop Date: 03/21/19 Status: Discontinued pantoprazole 40 mg oral enteric coated tablet 40 mg=1 tab, PO, Daily, # 30 tab, 0 Refill(s) Start Date: 03/21/19 Status: Ordered pneumococcal 23-valent vaccine 0.5 mL, Route: IM, Drug Form: INJ, ONCALL, Start date: 03/21/19 1:23:08 CDT, Sto p date: 04/20/19 1:18:08 CDT Notes: (Same as: Pneumovax 23) Refrigerate Start Date: 03/21/19 Stop Date: 03/21/19 Status: Discontinued repaglinide 2 mg, PO, TID-Before Meals, 0 Refill(s) Start Date: 03/21/19 Status: Ordered senna 17.2 mg, 2 tab, Route: PO, Drug Form: TAB, Dosing Weight 74.545, kg, Bedtime, St art date: 03/20/19 21:00:00 CDT, Duration: 30 day, Stop date: 04/18/19 21:00:00 CDT Notes: (Same as: Senokot) Start Date: 03/20/19 Stop Date: 03/21/19 Status: Discontinued simvastatin 20 mg, 1 tab, Route: PO, Drug form: TAB, Bedtime, Dosing Weight 74.545, kg, Star t date: 03/20/19 21:00:00 CDT, Duration: 30 day, Stop date: 04/18/19 21:00:00 CD T Notes: (Same as: Zocor) Start Date: 03/20/19 Stop Date: 03/21/19 Status: Discontinued simvastatin 20 mg=1 tab, PO, Bedtime, # 30 tab, 0 Refill(s) Start Date: 03/21/19 Stop Date: 04/20/19 Status: Ordered tamsulosin 0.4 mg, 1 cap, Route: PO, Drug form: CAP, Daily, Dosing Weight 74.545, kg, Start date: 03/21/19 9:00:00 CDT, Duration: 30 day, Stop date: 04/19/19 9:00:00 CDT Notes: (Same As: Flomax) "Do Not Crush" Start Date: 03/21/19 Stop Date: 03/21/19 Status: Discontinued tamsulosin 0.4 mg oral capsule 0.4 mg=1 cap, PO, Daily, # 30 cap, 0 Refill(s) Start Date: 03/21/19 Status: Ordered Tradjenta 5 mg oral tablet 5 mg=1 tab, PO, Daily, # 30 tab, 3 Refill(s) Start Date: 03/21/19 Status: Ordered tramadol 50 mg, PO, Q4-6H, PRN Pain, # 20 tab, 0 Refill(s) Start Date: 03/21/19 Stop Date: 03/25/19 Status: Ordered Results Most recent to 1 2 oldest [Reference Range]: Neutrophils # 17.2 K/CMM [1.5-8.1 K/CMM] *HI* (03/20/19 6:17 PM) Lymphocytes # 1.0 K/CMM [1.0-5.5 K/CMM] (03/20/19 6:17 PM) Monocytes # [0.0-0.8 0.8 K/CMM K/CMM] (03/20/19 6:17 PM) eGFR 53 mL/min/1.73m2 1 *NA* (03/20/19 6:17 PM) AGAP [10.0-20.0 10.2 mEq/L mEq/L] (03/20/19 6:17 PM) Basophils [0.0-1.0 0.1 % %] (03/20/19 6:17 PM) BUN [7-22 mg/dL] 12 mg/dL (03/20/19 6:17 PM) Calcium Lvl 9.3 mg/dL [8.5-10.5 mg/dL] (03/20/19: PM) Chloride Lvl [95-109 107 mEq/L mEq/L] (03/20/19: PM) CO2 [24-32 mEq/L] 27 mEq/L (03/20/19: PM) Creatinine Lvl 1.30 mg/dL [0.50-1.40 mg/dL] (03/20/19: PM) Glucose Lvl [70-99 242 mg/dL mg/dL] *HI* (03/20/19: PM) Hct [42.0-54.0 %] 41.8 % 47.9 % *LOW* (03/20/19 PM) (03/21/19 5:01 AM) Hgb [14.0-18.0 g/dL] 14.2 g/dL 15.7 g/dL (03/21/19 5:01 AM) (03/20/19: PM) INR [0.85-1.17] 1.11 (03/20/19: PM) Potassium Lvl 4.2 mEq/L [3.5-5.1 mEq/L] (03/20/19: PM) Lymphocytes 5.3 % [20.0-40.0 %] *LOW* (03/20/19 PM) MCH [27.0-31.0 pg] 30.9 pg (03/20/19 PM) MCHC [32.0-36.0 32.8 g/dL g/dL] (03/20/19: PM) MCV [80.0-94.0 fL] 94.3 fL *HI* (03/20/19 PM) Monocytes [2.0-12.0 4.2 % %] (03/20/19 PM) MPV [7.4-10.4 fL] 7.6 fL (03/20/19: PM) Sodium Lvl [135-145 140 mEq/L mEq/L] (03/20/19 PM) Platelet [133-450 197 K/CMM K/CMM] (03/20/19 6:17 PM) Segs [45.0-75.0 %] 90.4 % *HI* (03/20/19 6:17 PM) PT [12.0-14.7 14.1 seconds seconds] (03/20/19 6:17 PM) PTT [22.9-35.8 30.2 seconds seconds] (03/20/19 6:17 PM) RBC [4.70-6.10 5.08 M/CMM M/CMM] (03/20/19 6:17 PM) RDW [11.5-14.5 %] 13.7 % (03/20/19 6:17 PM) WBC [3.7-10.4 K/CMM] 19.0 K/CMM *HI* (03/20/19 6:17 PM) 1Result Comment: The eGFR is calculated [...] History: [place] 2Result Comment: fluzone high dose [[id number]]. Migrated from [facility] ; Data migrated from [employer] on 12/16/2015. 3Location History: Pharmacy 4Location History: Pharmacy 5Result Comment: done. Migrated from [facility] ; Data migrated from [employer] on 12/16/2015. 6Location History: Pharmacy Procedures Procedure Date Related Diagnosis Body Site Status Ablation, 1 or more renal tumor(s), 03/20/19 Completed percutaneous, unilateral, radiofrequency Ablation, 1 or more renal tumor(s), 03/20/19 Completed percutaneous, unilateral, radiofrequency Ablation, renal tumor(s), unilateral, 03/20/19 Completed percutaneous, cryotherapy Unlisted procedure, urinary system 03/20/19 Completed Core needle biopsy of kidney1 12/27/18 Completed [...] Reg Smoking Cessation Counseling No entered on: 03/20/19 Assessment and Plan Extracted from: Title: IR Progress Note Author: Xin Luke Date: 03/21/19 Progress Daily [facility] Completed: Thursday, MARCH 21, 2019, 07:21 by Xni Luke RM: [id number], [id number], [id number] (: 1945) M Attending: John Squireshone: Service: Internal Medicine Reason for Admission: 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 He reported pain 6-7/10 overnight, that decreased to 2/10 with pain meds. He has had some juice this morning without any nausea/vomiting. He denies any chest pain, sob, or lightheadedness. He informs me he would like to leave for home early today. Informed patient need to check additional blood count given small retroperitoneal hematoma present after cryoablation. OBJECTIVE VitalsTmp(F)[id number] 03/21 04:[id number]/[id number]--- 03/21 00:[id number]/[id number]--- 03/20 22:4797.643249/[id number]--- 03/20 20:4497.889536/7218------ 03/20 20:15----[id number]--- 24 Hr Tmax: 98.9F (37.17c) at 03/20 17:45Vital Signs are the last 5 in the past 48 hours. DateWt(kg)Wt(lb)Ht(cm)Ht(in)Method 03/20 (initial) 74.55 164.00Measured 03/20172.72 68.00Stated I&ORecordInOutBal 03/724hr Tot 350 [id number] 03/624hr Tot 0 0 0 Gen: AAO x3, NAD HEENT: normocephalic, anicteric sclera Resp: Clear to auscultation bilaterally CV: RRR, Left upper sternal pacemaker in place Abd: BS present, abd is soft, non-tender, non-distended, Extrem: no edema, left mid back with medipore in place, dried blood scatted on 25% of dressing, no active bleeding noted, area is NTTP Neuro: cranial nerve intact with sensation to light touch intact Skin: no rashes or jaundice 24hr Labs 03/21 0652 POC Performing LocatioSee Note Glucose OAV006 H 03/21 0501 Hgb14.2 Hct41.8 L 03/21 0246 POC Performing LocatioSee Note Glucose SKR047 H 03/20 2055 POC Performing LocatioSee Note Glucose PLK006 H 03/20 1817 Glucose Tfk897 H BUN12 Creatinine Lvl1.30 Sodium Msi401 Potassium Lvl4.2 Chloride Pdy726 CO227 AGAP10.2 Calcium Lvl9.3 eGFR53 WBC19.0 H RBC5.08 Hgb15.7 Hct47.9 MCV94.3 H MCH30.9 MCHC32.8 RDW13.7 Yqabftmu665 MPV7.6 Segs90.4 H Monocytes4.2 Lymphocytes5.3 L Basophils0.1 Neutrophils #17.2 H Lymphocytes #1.0 Monocytes #0.8 PT14.1 INR1.11 PTT30.2 03/20 1652 POC Performing LocatioSee Note Glucose FYZ906 H 03/20 1544 POC Performing LocatioSee Note Glucose OSJ846 H 03/20 1007 POC Performing LocatioSee Note Glucose BRQ183 H Medications (33) Active Scheduled Meds (10): 03/20/19 amLODIPine (Norvasc) 10 mg PO Daily 03/20/19 docusate 100 mg PO BID 03/20/19 (Suspended) enalapril 10 mg PO Daily 03/21/19 fluticasone nasal (fluticasone nasal 0.05 mg/inh spray) 2 spray NASAL Daily 03/20/19 insulin glargine (Lantus 100 units/mL) 10 unit SUB-Q Bedtime 0 ml/hr 03/21/19 pantoprazole 40 mg PO Daily 03/20/19 pregabalin (Lyrica) 50 mg PO BID 03/20/19 senna 17.2 mg PO Bedtime 03/20/19 simvastatin 20 mg PO Bedtime 03/21/19 tamsulosin 0.4 mg PO Daily Unscheduled Meds (2): 09/26/18 iohexol (Omnipaque 300 injectable solution) 100 mL IV ONCALL 03/21/19 pneumococcal 23-valent vaccine 0.5 mL IM ONCALL PRN Meds (21): 03/20/19 Dextrose 50% in Water IV (Dextrose 50% Syringe) 12.5 gm IVP PRN 03/20/19 Dextrose 50% in Water IV (Dextrose 50% Syringe) 25 gm IVP PRN 03/20/19 Dextrose 50% in Water IV (Dextrose 50% Syringe) 12.5 gm IVP PRN 03/20/19 Dextrose 50% in Water IV (Dextrose 50% Syringe) 25 gm IVP PRN 03/20/19 Dextrose 50% in Water IV (Dextrose 50% Syringe) 12.5 gm IVP PRN 03/20/19 Dextrose 50% in Water IV (Dextrose 50% Syringe) 25 gm IVP PRN 03/20/19 acetaminophen-hydrocodone (acetaminophen-hydrocodone 325 mg-10 mg oral tablet) 1 tab PO Q4H 03/20/19 glucagon 1 mg IM PRN 03/20/19 glucagon 1 mg IM PRN 03/20/19 glucagon 1 mg IM PRN 03/20/19 hydromorphone 1 mg IVP Q4H 03/20/19 insulin lispro 1 unit SUB-Q TID-Before Meals 03/20/19 insulin lispro 2 unit SUB-Q TID-Before Meals 03/20/19 insulin lispro 3 unit SUB-Q TID-Before Meals 03/20/19 insulin lispro 4 unit SUB-Q TID-Before Meals 03/20/19 insulin lispro 5 unit SUB-Q TID-Before Meals 03/20/19 insulin lispro 1 unit SUB-Q Bedtime 03/20/19 insulin lispro 2 unit SUB-Q Bedtime 03/20/19 insulin lispro 3 unit SUB-Q Bedtime 03/20/19 insulin lispro 4 unit SUB-Q Bedtime 03/20/19 ondansetron 4 mg IVP Q8H One Time Meds: None Continuous Infusions: None DIAGNOSES & PROBLEMS 1) Left renal mass s/p cryoablation 2) Small, stable retroperitoneal hematoma 3) Post-operative back pain - stable 4) Chronic atrial fibrillation s/p pacemaker on Eliquis (currently on hold) 5) HTN ASSESSMENT & PLAN 73-year-old male with PMH of bilateral RCC s/p right nephrectomy, AFib s/p PPM on Eliquis, & HTN who underwent elective left renal mass cryoablation complicated by small retroperitoneal hematoma. This morning, no active bleeding noted on his dressing on his left back, and area is NTTP. Hgb did drop on subsequent checks (15.7>>14.2), however, he denies any lightheadedness/dizziness, chest pain, or shortness of breath. -Recommend repeat H&H at 1100 to ensure no further drop (ordered) -If H&H stable, would be OK to discharge once Bates removed & patient able to urinate -Agree with holding Eliquis & other prophylactic anti-coagulation -Please ensure patient is discharged with Levaquin 750mg once daily x5days -Patient educated on self-limiting post ablation syndrome that can occur up to 10days after procedure that can include symptoms of fever, headache, myalgia, nausea/vomiting, cough, rhinitis, etc. -We will schedule patient for repeat CT A/P +contrast in 3 months followed by IR Clinic Follow-up at [facility], [place], operated by [facility]. Pt can call [phone] to confirm -IR to follow Addendum Dr Whittaker reviewed imaging and findings, and he determined drop in hemoglobin likely by Saing, hemodilution secondary to IV fluids administered to patient intraoperatively and less Xin PA likely acute bleeding. Dr. Whittaker states patient urinating 900cc upon Bates on placement and 3.2L intra-operatively is very concerning for bladder outlet obstruction in 03/21/2019 setting of prior prostate cancer. Pt has since voided 1.5L since procedure with Bates in 08:51 place. -Discontinued repeat H&H, OK to resume Eliquis in 48hours -Discontinue Bates (ordered) and have patient void. -If patient able to void, OK to discharge from IR perspective Extracted from: Title: History and Physical Author: John Squires MD Date: 03/20/19 33-year-old male withhistory of bilateral RCC presented forleft RCCcryoablation 1.Renal cell cancer(C64.9) Status postleft RCC cryoablation, complicated with a small leftretroperitoneal hematoma. Check a.m.CBC. IRwillfollow upin the morning. If hematoma bleeds, call Dr. Whittaker [phone] for ablation. Ordered: Admit/Condition, 03/20/19 15:59:00 CDT, Status: Out Patient with Observation Services, Acute, Expected LOS: 1 Midnight, Catrina Pérez DO, Admit Review/Approve Yes, Isolation: No Isolation/Standard Precautions, Renal cell cancer | Type 2 diabetes mellitus with h... 2.Acute postoperative pain(G89.18) Start multimodalpain regiment 3.Type 2 diabetes mellitus with hyperglycemia(E11.65) Continue Lantus. Startinsulin sliding scale and carb controlled diet Ordered: Admit/Condition, 03/20/19 15:59:00 CDT, Status: Out Patient with Observation Services, Acute, Expected LOS: 1 Midnight, Catrina Pérez DO, Admit MD Review/Approve Yes, Isolation: No Isolation/Standard Precautions, Renal cell cancer | Type 2 diabetes mellitus with h... 4.Chronic atrial fibrillation(I48.2) Rate is controlledwith pacemaker. HoldEliquisfor hematoma. May restart when cleared by IR Ordered: Admit/Condition, 03/20/19 15:59:00 CDT, Status: Out Patient with Observation Services, Acute, Expected LOS: 1 Midnight, Catrina Pérez DO, Admit MD Review/Approve Yes, Isolation: No Isolation/Standard Precautions, Renal cell cancer | Type 2 diabetes mellitus with h... 5.Benign essential hypertension(I10) BP is elevated. Restartenalapril Ordered: Admit/Condition, 03/20/19 15:59:00 CDT, Status: Out Patient with Observation Services, Acute, Expected LOS: 1 Midnight, Catrina Pérez DO, Admit MD Review/Approve Yes, Isolation: No Isolation/Standard Precautions, Renal cell cancer | Type 2 diabetes mellitus with h... 6.Retroperitoneal hematoma(K66.1) As a #1. will obtain baseline CBC, PT/PTT Ordered: Admit/Condition, 03/20/19 15:59:00 CDT, Status: Out Patient with Observation Services, Acute, Expected LOS: 1 Midnight, Catrina Pérze DO, Admit MD Review/Approve Yes, Isolation: No Isolation/Standard Precautions, Renal cell cancer | Type 2 diabetes mellitus with h... SCD. hold chemoppx due to hematoma Placed in [facility] per IR request. Expect 1 mn, home tomorrow when cleared by IR. Addendum by [facility] is slightly trending up. hold ACEI. start norvasc 10mg John MANSFIELD on 03/20/2019 21:37 CDT
--- OUTSIDE RECORDS SUMMARY | 2019-05-06 21:45 | XMS REPORT | Summary of Care ---
Author Author [facility] Primary Care [facility] Organization [facility] Address Unknown Phone Unavailable Encounter HQ Suryar_izzy(FIN) [id number] Date(s): 03/21/18 - 03/22/18 [facility] [address], [address] [place], [place] [address]- [phone] Vital Signs No data available for this [...] GE Centricity on 05/21/15. 6Data migrated from Friends Around[employer] on 04/12/15. Allergies, Adverse Reactions, Alerts Substance Reaction Severity Status clindamycin1 nausea Active 1Data migrated from GE 51[employer] on 05/22/15. Originally documented as CLINDAMYCIN HCL. [...] 07/06/16 Recorded 1Result Comment: fluzone high dose [uya019]. Migrated from OBS ; Data migrated from [employer] on 12/16/2015. 2Location History: Pharmacy 3Location History: Pharmacy 4Result Comment: done. Migrated from OBS ; Data migrated from [employer] on 12/16/2015. 5Location History: Pharmacy Procedures Procedure [...]
--- OUTSIDE RECORDS SUMMARY | 2019-05-06 21:45 | XMS REPORT | Summary of Care ---
Author Author [facility] Primary Care [facility] Organization [facility] Address Unknown Phone Unavailable Encounter HQ Sp_izzy(FIN) [id number] Date(s): 03/16/18 - 03/17/18 [facility] [address], [address] [place] [address] [phone] Vital Signs No data available for this [...] GE Centricity on 05/21/15. 6Data migrated from SkyStemcity on 04/12/15. Allergies, Adverse Reactions, Alerts Substance Reaction Severity Status clindamycin1 nausea Active 1Data migrated from GE Cernosticscity on 05/22/15. Originally documented as CLINDAMYCIN HCL. [...] 07/06/16 Recorded 1Result Comment: fluzone high dose [vml920]. Migrated from OBS ; Data migrated from [employer] on 12/16/2015. 2Location History: Pharmacy 3Location History: Pharmacy 4Result Comment: done. Migrated from OBS ; Data migrated from [employer] on 12/16/2015. 5Location History: Pharmacy Procedures Procedure [...]
--- OUTSIDE RECORDS SUMMARY | 2019-05-06 21:45 | XMS REPORT | Summary of Care ---
Author Author [facility] Organization [facility] Address Unknown Phone Unavailable Care Team Providers Care Phone Screener Name Role Phone [place] Noemi Dereje Badillo PCP Encounter HQ Encntr_izzy(FIN) [id number] Date(s): 04/27/19 - 04/27/19 [facility] [address] [place] [address] [phone] Attending Physician: Tiffany Pat MD Vital Signs No data available for [...] insulin Active use(Confirmed) Lumbar Active spondylosis(Confirme d) Malignant otitis Active externa, right ear(Confirmed) Mixed 04/12/13 Active hyperlipidemia(Confi rmed)4 Onychomycosis of Active toenails5 Overweight(Confirmed Active ) Medicare annual Active wellness visit, subsequent(Confirmed ) Screening for Active prostate cancer(Confirmed) Tension Active headache(Confirmed) Type 2 diabetes Active mellitus with polyneuropathy(Confi rmed) Encounter for Active immunization(Confirm ed) 1Data migrated from MD Insider on 05/21/15. 2Data migrated from Jobmetooty on 04/12/15. 3Data migrated from GE Centricity [...] History: [facility] 2Result Comment: fluzone high dose [adh350]. Migrated from OBS ; Data migrated from GE Centricity on 12/16/2015. 3Location History: Pharmacy 4Location History: Pharmacy 5Result Comment: done. Migrated from OBS ; Data migrated from GE TRiQcity on 12/16/2015. 6Location History: Pharmacy Procedures Procedure [...] Reg Smoking Cessation Counseling No entered on: 04/27/19 Assessment and Plan No data available for this section
--- OUTSIDE RECORDS SUMMARY | 2019-05-06 21:45 | XMS REPORT | Summary of Care ---
Author Author [facility] Organization [facility] Address Unknown Phone Unavailable Care Team Providers Care Blender Laborer Name Role Phone Noemi Golden PCP Encounter HQ Suryar_izzy(FIN) [id number] Date(s): 04/27/19 - 04/27/19 [facility] [address] [place] [address]- Discharge Disposition: Home or Self Care Attending Physician: Tiffany Pat MD Vital Signs Most recent to 1 oldest [Reference Range]: Height 167.64 cm (04/27/19 1:17 PM) Blood Pressure 125/65 mmHg [90-140/60-90 mmHg] (04/27/19 1:17 PM) Peripheral Pulse 62 bpm Rate [60-100 bpm] (04/27/19 1:17 PM) Weight 58.665 kg (04/27/19 1:17 PM) Body Mass Index 20.87 m2 (04/27/19 1:17 PM) Problem List Condition Effective Dates Status [...] Originally documented as CLINDAMYCIN HCL. nausea Medications acetaminophen 500 mg oral tablet 500 mg=1 tab, PO, TID, PRN Fever, X 10 day, # 24 tab, 0 Refill(s), Pharmacy: [id number] Start Date: 04/27/19 Stop Date: 05/07/19 Status: Ordered Cipro 500 mg oral tablet 500 mg=1 tab, PO, Q12H, X 10 day, # 20 tab, 0 Refill(s), Pharmacy: [id number] Start Date: 04/27/19 Stop Date: 05/07/19 Status: Ordered ciprofloxacin-dexamethasone 0.3%-0.1% otic suspension 4 drp, OTIC, BID, shake well before using R ear, X 7 day, # 7 ml, 0 Refill(s), P harmacy: [facility] [id number] Start Date: 04/27/19 Stop Date: 05/04/19 Status: Ordered Results No data available for [...] History: [facility] 2Result Comment: fluzone high dose [buy575]. Migrated from OBS ; Data migrated from [employer] on 12/16/2015. 3Location History: Pharmacy 4Location History: Pharmacy 5Result Comment: done. Migrated from OBS ; Data migrated from [employer] on 12/16/2015. 6Location History: Pharmacy Procedures Procedure [...]
--- OUTSIDE RECORDS SUMMARY | 2019-05-06 21:45 | XMS REPORT | Summary of Care ---
Author Author [facility] Organization [facility] Address Unknown Phone Unavailable Encounter HQ Lou(FIN) [id number] Date(s): 01/16/19 - 01/16/19 [facility] [address], [address] [place], [place] [address]- [phone] Discharge Disposition: Home or Self Care Attending Physician: Noemi Golden MD Vital Signs Most recent to 1 oldest [Reference Range]: Height 167.64 cm (01/16/19 9:57 AM) Temperature Oral 97.3 DegF [96.4-99.1 DegF] (01/16/19 9:57 AM) Blood Pressure 136/74 mmHg [90-140/60-90 mmHg] (01/16/19 9:57 AM) Respiratory Rate 16 BRMIN [14-20 BRMIN] (01/16/19 9:57 AM) Peripheral Pulse 84 bpm Rate [60-100 bpm] (01/16/19 9:57 AM) Weight 74.148 kg (01/16/19 9:57 AM) Body Mass Index 26.38 m2 (01/16/19 9:57 AM) Problem List Condition Effective Dates Status [...] 2 diabetes Active mellitus with hyperglycemia(Confir med) Impacted cerumen of Active right ear(Confirmed) Long-term [...] History: [place] 2Result Comment: fluzone high dose [nam280]. Migrated from OBS ; Data migrated from [employer]us Technologies Corporationcity on 12/16/2015. 3Location History: Pharmacy 4Location History: Pharmacy 5Result Comment: done. Migrated from OBS ; Data migrated from [employer] on 12/16/2015. 6Location History: Pharmacy Procedures Procedure Date Related Diagnosis Body Site Status Removal impacted cerumen using 01/16/19 Completed irrigation/lavage, unilateral Core needle biopsy of kidney1 12/27/18 Completed [...] Reg Smoking Cessation Counseling No entered on: 01/16/19 Assessment and Plan No data available for this section
--- OUTSIDE RECORDS SUMMARY | 2019-05-06 21:45 | XMS REPORT | Summary of Care ---
Author Author [facility] Care [facility] Organization [facility] Address Unknown Phone Unavailable Encounter HQ Sp_izzy(FIN) [id number] Date(s): 01/23/18 - 01/24/18 [facility] [address], [address] [place] [address]- [phone] Vital Signs No data available for this [...] GE Centricity on 05/21/15. 6Data migrated from AlterGeocity on 04/12/15. Allergies, Adverse Reactions, Alerts Substance Reaction Severity Status clindamycin1 nausea Active 1Data migrated from GE Noble Life Sciencescity on 05/22/15. Originally documented as CLINDAMYCIN HCL. [...] 07/06/16 Recorded 1Result Comment: fluzone high dose [zbz359]. Migrated from OBS ; Data migrated from [employer] on 12/16/2015. 2Location History: Pharmacy 3Location History: Pharmacy 4Result Comment: done. Migrated from OBS ; Data migrated from [employer] on 12/16/2015. 5Location History: Pharmacy Procedures Procedure [...]
--- OUTSIDE RECORDS SUMMARY | 2019-05-06 21:45 | XMS REPORT | Summary of Care ---
Author Author [facility] Primary Care [facility] Organization [facility] Address Unknown Phone Unavailable Encounter HQ Sp_izzy(FIN) [id number] Date(s): 03/13/18 - 03/14/18 [facility] [address], [address] [place], [place] [address]- [phone] Vital Signs No data available for this [...] GE Centricity on 05/21/15. 6Data migrated from Flytenowcity on 04/12/15. Allergies, Adverse Reactions, Alerts Substance Reaction Severity Status clindamycin1 nausea Active 1Data migrated from GE Karuna Pharmaceuticalscity on 05/22/15. Originally documented as CLINDAMYCIN HCL. [...] 07/06/16 Recorded 1Result Comment: fluzone high dose [vii448]. Migrated from OBS ; Data migrated from Fly[employer] on 12/16/2015. 2Location History: Pharmacy 3Location History: Pharmacy 4Result Comment: done. Migrated from OBS ; Data migrated from Flytenowcity on 12/16/2015. 5Location History: Pharmacy Procedures Procedure [...]
--- OUTSIDE RECORDS SUMMARY | 2019-05-06 21:45 | XMS REPORT | Summary of Care ---
Author Author [facility] Primary Care [facility] Organization [facility] Address Unknown Phone Unavailable Encounter HQ Suryar_izzy(FIN) [id number] Date(s): 03/21/18 - 03/22/18 [facility] [address], [address] [place], [place] [address]- [phone] Vital Signs No data available for this [...] GE Centricity on 05/21/15. 6Data migrated from [employer] Residential[employer] on 04/12/15. Allergies, Adverse Reactions, Alerts Substance Reaction Severity Status clindamycin1 nausea Active 1Data migrated from GE PhotoTheracity on 05/22/15. Originally documented as CLINDAMYCIN HCL. [...] 07/06/16 Recorded 1Result Comment: fluzone high dose [ttx632]. Migrated from OBS ; Data migrated from [employer] on 12/16/2015. 2Location History: Pharmacy 3Location History: Pharmacy 4Result Comment: done. Migrated from OBS ; Data migrated from [employer] on 12/16/2015. 5Location History: Pharmacy Procedures Procedure [...]
--- OUTSIDE RECORDS SUMMARY | 2019-05-06 21:46 | XMS REPORT | Summary of Care ---
Author Author [facility] Organization [facility] Address Unknown Phone Unavailable Encounter HQ Sp_izzy(FIN) [id number] Date(s): 05/22/18 - 05/23/18 [facility] [address], [address] [place] [address] [phone] Vital Signs No data available for this [...] GE Centricity on 05/21/15. 6Data migrated from Madvenuecity on 04/12/15. Allergies, Adverse Reactions, Alerts Substance Reaction Severity Status clindamycin1 nausea Active 1Data migrated from GE TIFFS TREATS HOLDINGScity on 05/22/15. Originally documented as CLINDAMYCIN HCL. [...] 07/06/16 Recorded 1Result Comment: fluzone high dose [dch837]. Migrated from OBS ; Data migrated from [employer] on 12/16/2015. 2Location History: Pharmacy 3Location History: Pharmacy 4Result Comment: done. Migrated from OBS ; Data migrated from Mad[employer] on 12/16/2015. 5Location History: Pharmacy Procedures Procedure [...]
--- OUTSIDE RECORDS SUMMARY | 2019-05-06 21:46 | XMS REPORT | Summary of Care ---
Author Author [facility] Organization [facility] Address Unknown Phone Unavailable Care Team Providers Care Gear Tester Name Role Phone Noemi Golden PCP Encounter HQ Encntr_izzy(FIN) [id number] Date(s): 10/09/18 - 10/10/18 [facility] [address] [place] [address]- Vital Signs No data available for this [...] GE Centricity on 05/21/15. 4Data migrated from [facility] on 05/21/15. 5Data migrated from [facility] on 04/12/15. Allergies, Adverse Reactions, Alerts Substance Reaction Severity Status clindamycin1 nausea Active 1Data migrated from [facility] on 05/22/15. Originally documented as CLINDAMYCIN HCL. nausea Medications Eliquis 5 mg oral tablet 5 mg=1 tab, PO, BID, # 180 tab, 1 Refill(s), [facility]: [id number] Start Date: 10/11/18 Stop Date: 03/21/19 Status: Discontinued pantoprazole 40 mg oral enteric coated tablet 40 mg=1 tab, PO, Daily, # 90 tab, 1 Refill(s), Pharmacy: [id number] Start Date: 10/11/18 Stop Date: 03/21/19 Status: Discontinued Results No data available for [...] pneumococcal 13-valent vaccine6 07/06/16 Recorded [facility] 2Result Comment: fluzone high dose [txl530]. Migrated from OBS ; Data migrated from [facility] on 12/16/2015. 3Location History: Pharmacy 4Location History: Pharmacy 5Result Comment: done. Migrated from OBS ; Data migrated from [facility] on 12/16/2015. 6Location History: Pharmacy Procedures Procedure [...]
--- OUTSIDE RECORDS SUMMARY | 2019-05-06 21:46 | XMS REPORT | Summary of Care ---
Author Author [facility] Care [facility] Organization [facility] Address Unknown Phone Unavailable Care Team Providers Care Supervisor Typesetting Name Role Phone Noemi Golden PCP Encounter HQ Suryar_izzy(FIN) [id number] Date(s): 05/01/19 - 05/01/19 [facility] [address] [address]- Discharge Disposition: Home or Self Care Attending Physician: Noemi Golden MD Vital Signs Most recent to 1 oldest [Reference Range]: Height 167.64 cm (05/01/19 9:32 AM) Temperature Oral 97.9 DegF [96.4-99.1 DegF] (05/01/19 9:32 AM) Blood Pressure 142/58 mmHg [90-140/60-90 mmHg] *HI* (05/01/19 9:32 AM) Respiratory Rate 14 BRMIN [14-20 BRMIN] (05/01/19 9:32 AM) Peripheral Pulse 62 bpm Rate [60-100 bpm] (05/01/19 9:32 AM) Weight 74.545 kg (05/01/19 9:32 AM) Body Mass Index 26.53 m2 (05/01/19 9:32 AM) Problem List Condition Effective Dates Status [...] History: [place] 2Result Comment: fluzone high dose [xdf553]. Migrated from OBS ; Data migrated from [employer] on 12/16/2015. 3Location History: Pharmacy 4Location History: Pharmacy 5Result Comment: done. Migrated from OBS ; Data migrated from [employer] on 12/16/2015. 6Location History: Pharmacy Procedures Procedure [...] Reg Smoking Cessation Counseling No entered on: 05/02/19 Assessment and Plan No data available for this section
--- OUTSIDE RECORDS SUMMARY | 2019-05-06 21:46 | XMS REPORT | Summary of Care ---
Author Author [facility] Care [facility] Organization [facility] Address Unknown Phone Unavailable Care Team Providers Care Brick Pointer Name Role Phone Noemi Golden PCP Encounter HQ Suryar_izzy(FIN) [id number] Date(s): 04/02/19 - 04/02/19 [facility] [address] [address]- Discharge Disposition: Home or Self Care Attending Physician: Noemi Golden MD Vital Signs Most recent to 1 oldest [Reference Range]: Height 167.64 cm (04/02/19 10:27 AM) Temperature Oral 97.6 DegF [96.4-99.1 DegF] (04/02/19 10:27 AM) Blood Pressure 135/65 mmHg [90-140/60-90 mmHg] (04/02/19 10:27 AM) Respiratory Rate 16 BRMIN [14-20 BRMIN] (04/02/19 10:27 AM) Peripheral Pulse 71 bpm Rate [60-100 bpm] (04/02/19 10:27 AM) Weight 73.21 kg (04/02/19 10:27 AM) Body Mass Index 26.05 m2 (04/02/19 10:27 AM) Problem List Condition Effective Dates Status Health Status Informant Hx of unilateral Active nephrectomy(Confirme d) Benign essential Active hypertension(Confirm ed) Benign prostatic 11/14/59 Active hyperplasia(Confirme d)1 Symptomatic Active bradycardia(Confirme d) Cardiac Active pacemaker(Confirmed) Cervical Active spondylosis(Confirme d) Chronic atrial Active fibrillation(Confirm ed) Chronic back Active pain(Confirmed) Chronic kidney Resolved disease, stage 3(Confirmed)2 Chronic Active sinusitis(Confirmed) Acute [...] # 40 tab, 0 Refill(s) Start Date: 04/02/19 Stop Date: 04/02/19 Status: Discontinued acetaminophen-tramadol 325 mg-37.5 mg oral tablet 1 tab, PO, Q8H, PRN Pain, # 40 tab, 0 Refill(s) Start Date: 04/02/19 Stop Date: 04/02/20 Status: Ordered baclofen 20 mg oral tablet 20 mg=1 tab, PO, BID, PRN Spasms, # 40 tab, 0 Refill(s), Pharmacy: [facility] [id number] Start Date: 04/02/19 Status: Ordered Results No data available for [...] History: [facility] 2Result Comment: fluzone high dose [sik020]. Migrated from OBS ; Data migrated from [employer] on 12/16/2015. 3Location History: Pharmacy 4Location History: Pharmacy 5Result Comment: done. Migrated from OBS ; Data migrated from [employer] on 12/16/2015. 6Location History: Pharmacy Procedures Procedure [...]
--- OUTSIDE RECORDS SUMMARY | 2019-05-06 21:46 | XMS REPORT | Summary of Care ---
Author Author [facility] Organization [facility] Address Unknown Phone Unavailable Care Team Providers Care Loftsman/Woman Name Role Phone Noemi Golden PCP Encounter HQ Suryar_izzy(FIN) [id number] Date(s): 03/27/19 - 03/27/19 [facility] [address] [place] [address] Attending Physician: Joey Reyes MD Vital Signs No data available for [...] History: [facility] 2Result Comment: fluzone high dose [azi414]. Migrated from OBS ; Data migrated from GE Clickercity on 12/16/2015. 3Location History: Pharmacy 4Location History: Pharmacy 5Result Comment: done. Migrated from OBS ; Data migrated from GE Click[employer]ity on 12/16/2015. 6Location History: Pharmacy Procedures Procedure [...] No entered on: 03/20/19 Assessment and Plan No data available for this section
--- OUTSIDE RECORDS SUMMARY | 2019-05-06 21:46 | XMS REPORT | Summary of Care ---
Author Author [facility] Primary Care [facility] Organization [facility] Address Unknown Phone Unavailable Encounter HQ Sp_izzy(FIN) [id number] Date(s): 01/31/18 - 02/01/18 [facility] [address], [address] [place] [address] [phone] Vital Signs No data available for this [...] GE Centricity on 05/21/15. 6Data migrated from [employer] on 04/12/15. Allergies, Adverse Reactions, Alerts Substance Reaction Severity Status clindamycin1 nausea Active 1Data migrated from GE nextsocialcity on 05/22/15. Originally documented as CLINDAMYCIN HCL. [...] 07/06/16 Recorded 1Result Comment: fluzone high dose [jhd078]. Migrated from OBS ; Data migrated from [employer] on 12/16/2015. 2Location History: Pharmacy 3Location History: Pharmacy 4Result Comment: done. Migrated from OBS ; Data migrated from [employer] on 12/16/2015. 5Location History: Pharmacy Procedures Procedure [...]
--- OUTSIDE RECORDS SUMMARY | 2019-05-06 21:46 | XMS REPORT | Summary of Care ---
Author Author [facility] Organization [facility] Address Unknown Phone Unavailable Care Team Providers Care Graphic Arts Technician Name Role Phone Noemi Golden PCP Encounter HQ Suryar_izzy(FIN) [id number] Date(s): 05/02/19 - 05/02/19 [facility] [address] [place] [address]- Discharge Disposition: Home or Self Care Attending [...] for Active immunization(Confirm ed) 1Data migrated from [employer] on 05/21/15. 2Data migrated from [employer] [...] History: [facility] 2Result Comment: fluzone high dose [[id number]]. Migrated from OBS ; Data migrated from [employer] on 12/16/2015. 3Location History: Pharmacy 4Location History: Pharmacy 5Result Comment: done. Migrated from OBS ; Data migrated from [employer] on 12/16/2015. 6Location History: Pharmacy Procedures Procedure [...] kidney. 2left kidney 3no retinopathy, cataract OD 4Pre 5Right kidney due to right renal cancer [...]
--- OUTSIDE RECORDS SUMMARY | 2019-05-06 21:46 | XMS REPORT | Summary of Care ---
Author Author [facility] Organization [facility] Address Unknown Phone Unavailable Care Team Providers Care Pattern Maker Programer Name Role Phone Noemi Golden PCP Encounter HQ Sp_izzy(FIN) [phone] Date(s): 05/02/19 - 05/02/19 [facility] [address] [place], [place] [address]- [phone] Discharge Disposition: Home or Self Care Attending Physician: Joey Reyes MD Vital Signs Most recent to 1 oldest [Reference Range]: Height 167.64 cm (05/02/19 1:26 PM) Blood Pressure 165/75 mmHg [90-140/60-90 mmHg] *HI* (05/02/19 1:26 PM) Peripheral Pulse 68 bpm Rate [60-100 bpm] (05/02/19 1:26 PM) Weight 76.08 kg (05/02/19 1:26 PM) Body Mass Index 27.07 m2 (05/02/19 1:26 PM) Problem List Condition Effective Dates Status [...] History: [facility] 2Result Comment: fluzone high dose [[id number]]. Migrated from OBS ; Data migrated from [employer] on 12/16/2015. 3Location History: Pharmacy 4Location History: Pharmacy 5Result Comment: done. Migrated from OBS ; Data migrated from [employer] on 12/16/2015. 6Location History: Pharmacy Procedures Procedure [...]
--- OUTSIDE RECORDS SUMMARY | 2019-05-06 21:46 | XMS REPORT | Summary of Care ---
Author Author [facility] Organization [facility] Address Unknown Phone Unavailable Encounter HQ Lou(FIN) [id number] Date(s): 12/06/18 - 12/07/18 [facility] [address], [address] [place], [place] [address]- [phone] Vital Signs No data available for this section Problem List Condition Effective Dates Status Health Status Informant Hx of unilateral Active nephrectomy(Confirme d) Acute Active sinusitis(Confirmed) Benign hypertension Active with chronic kidney disease, [...] Active hyperlipidemia(Confi rmed)5 Onychomycosis of Active toenails6 Left renal Active mass(Confirmed) Screening for Active [...] Status clindamycin1 nausea Active 1Data migrated from [employer] [place] on 05/22/15. Originally documented as CLINDAMYCIN HCL. nausea Medications Basaglar KwikPen 100 units/mL subcutaneous solution 10 unit, SUB-Q, Bedtime, # 1 box, 3 Refill(s), Pharmacy: [facility] [id number] [phone] Start Date: 12/06/18 Status: Ordered BD Ultra-Fine Veronica Insulin Pen [place] 32G 4mm=5/32 inch Patient injects once daily., MISC, Daily, # 100 ea, 5 Refill(s), Pharmacy: [facility] [id number] Start Date: 12/06/18 Status: Ordered Results No data available for [...] zoster vaccine live6 07/06/16 Recorded 1Location History: [facility] 2Result Comment: fluzone high dose [[id number]]. Migrated from OBS ; Data migrated from [employer] [place] on 12/16/2015. 3Location History: Pharmacy 4Location History: Pharmacy 5Result Comment: done. Migrated from OBS ; Data migrated from [employer] [place] on 12/16/2015. 6Location History: Pharmacy Procedures Procedure Date Related Diagnosis Body Site Status Influenza vaccination 08/18/18 Completed Comprehensive eye examination1 05/03/17 Completed Administration of herpes zoster vaccine 07/06/16 Completed Pneumococcal vaccination2 07/06/16 Completed Implantation of cardiac pacemaker 03/2016 Completed Nephrectomy3 10/24/15 Completed Colonoscopy4 05/28/15 Completed Decompression laminectomy of lumbar spine Completed TURP - Transurethral resection of prostate Completed 1no retinopathy, cataract OD 2Prevnar-13 3Right kidney due to right renal cancer 4polyps, diverticulosis, repeat in 3 years Social History Social History Type Response Substance Abuse Use: None. Exercise Exercise duration: 25. Exercise frequency: 1-2 times/week. Exercise type: Walking. 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 Alcohol Never Smoking Status Never smoker; Exposure to Tobacco Smoke None; Cigarette Smoking Last 365 Days No; Reg Smoking Cessation Counseling No entered on: 12/04/18 Assessment and Plan No data available for this section
--- OUTSIDE RECORDS SUMMARY | 2019-05-06 21:46 | XMS REPORT | Summary of Care ---
Author Author [facility] Organization [facility] Address Unknown Phone Unavailable Encounter SIMRAN Blake(MALCOLM) [id number] Date(s): 12/04/18 - 12/04/18 [facility] [email or web address], [address] [place] [address] [phone] Discharge Disposition: Home or Self Care Attending Physician: Joey Reyes MD Vital Signs Most recent to 1 oldest [Reference Range]: Height 167.64 cm (12/04/18 2:17 PM) Blood Pressure 166/82 mmHg [90-140/60-90 mmHg] *HI* (12/04/18 2:17 PM) Peripheral Pulse 66 bpm Rate [60-100 bpm] (12/04/18 2:17 PM) Weight 75.455 kg (12/04/18 2:17 PM) Body Mass Index 26.85 m2 (12/04/18 2:17 PM) Problem List Condition Effective Dates Status [...] History: [facility] 2Result Comment: fluzone high dose [[id number]]. Migrated from OBS ; Data migrated from [employer] on 12/16/2015. 3Location History: Pharmacy 4Location History: Pharmacy 5Result Comment: done. Migrated from OBS ; Data migrated from [employer] on 12/16/2015. 6Location History: Pharmacy Procedures Procedure [...]
--- OUTSIDE RECORDS SUMMARY | 2019-05-06 21:47 | XMS REPORT | Summary of Care ---
Author Author [facility] Organization [facility] Address Unknown Phone Unavailable Encounter SIMRAN Blake(MALCOLM) [id number] Date(s): 12/27/18 - 12/27/18 [facility] [address] [place] [address]- Discharge Disposition: Home or Self Care Attending Physician: Joey Reyes MD Referring Physician: Joey Reyes MD Vital Signs Most recent to 1 oldest [Reference Range]: Height 172.72 cm (12/27/18 7:57 AM) Weight 74.545 kg (12/27/18 7:57 AM) Body Mass Index 24.99 m2 (12/27/18 7:57 AM) Problem List Condition Effective Dates Status [...] zoster vaccine live6 07/06/16 Recorded 1Location History: [facility] 2Result Comment: fluzone high dose [[id number]]. Migrated from OBS ; Data migrated from [...] Reg Smoking Cessation Counseling No entered on: 12/27/18 Assessment and Plan No data available for this section
--- OUTSIDE RECORDS SUMMARY | 2019-05-06 21:47 | XMS REPORT | Summary of Care ---
Author Author [facility] Primary Care [facility] Organization [facility] Address Unknown Phone Unavailable Encounter HQ Lou(FIN) [id number] Date(s): 12/04/18 - 12/05/18 [facility] [address], [address] [place], [place] [address]- [phone] Vital Signs No data available for this [...] Status clindamycin1 nausea Active 1Data migrated from [employer] on 05/22/15. Originally documented as CLINDAMYCIN HCL. nausea Medications Tradjenta 5 mg oral tablet 5 mg=1 tab, PO, Daily, # 90 tab, 1 Refill(s), Pharmacy: [facility] [phone] Start Date: 12/05/18 Status: Ordered Results No data available for [...] zoster vaccine live6 07/06/16 Recorded 1Location History: [facility] 2Result Comment: fluzone high dose [[id number]]. Migrated from OBS ; Data migrated from [employer] on 12/16/2015. 3Location History: Pharmacy 4Location History: Pharmacy 5Result Comment: done. Migrated from OBS ; Data migrated from [employer] on 12/16/2015. 6Location History: Pharmacy Procedures Procedure [...]
--- OUTSIDE RECORDS SUMMARY | 2019-05-06 21:47 | XMS REPORT | Summary of Care ---
Author Author [facility] Organization [facility] Address Unknown Phone Unavailable Encounter SIMRAN Blake(MALCOLM) [id number] Date(s): 03/25/16 - 03/28/16 [facility] [address] [place] [address]- Discharge Disposition: Home Attending Physician: Satish Wade MD Admitting Physician: Satish Wade MD Vital Signs 1 2 3 Most recent to oldest [Reference Range]: 172.72 cm (03/26/16 4:04 AM) 172.72 cm (03/25/16 7:50 PM) Height 98.2 DegF (03/28/16 8:19 AM) 97.5 DegF (03/28/16 3:58 AM) 97.6 DegF (03/28/16 12:11 AM) Temperature Oral [96.4-99.1 DegF] 134/87 mmHg (03/28/16 8:19 AM) 154/89 mmHg *HI* (03/28/16 3:58 AM) 139/84 mmHg (03/28/16 12:11 AM) Blood Pressure [90-140/60-90 mmHg] 18 BRMIN (03/28/16 8:19 AM) 2 BRMIN *LOW* (03/28/16 3:58 AM) 20 BRMIN (03/28/16 12:11 AM) Respiratory Rate [14-20 BRMIN] 60 bpm (03/28/16 8:19 AM) 61 bpm (03/28/16 3:58 AM) 64 bpm (03/28/16 12:11 AM) Peripheral Pulse Rate [60-100 bpm] 70.199 kg (03/26/16 4:04 AM) 71.364 kg (03/25/16 7:50 PM) Weight 23.53 m2 (5/13/16 4:04 AM) 23.92 m2 (03/25/16 7:50 PM) Body Mass Index Problem List Condition Effective Dates Status Health Status Informant Abdominal Active bloating(Confirmed) Hx of unilateral Active nephrectomy(Confirme d) Benign essential 04/12/13 Active hypertension1 Benign prostatic 11/14/59 Active hyperplasia2 Symptomatic Active bradycardia(Confirme d) Cancer of Resolved kidney(Confirmed) Cardiac Active pacemaker(Confirmed) Chronic atrial Active fibrillation(Confirm ed) Chronic back Active pain(Confirmed) Chronic kidney Active disease stage 23 Acute Active diverticulitis(Confi rmed) Diverticulosis(Confi Resolved rmed) Gastritis(Confirmed) Active History of polyp of 04/16/15 Active colon4 Hypocalcemia(Confirm Active ed) Hypokalemia(Confirme Active d) Hyponatremia(Confirm Active ed) Iron deficiency 01/13/15 Resolved anemia5 Microalbuminuria6 04/12/13 Active Mixed 04/12/13 Active hyperlipidemia7 Nausea(Confirmed) Active Onychomycosis of Active toenails8 Pain in Active scapula(Confirmed) Annual physical Resolved exam(Confirmed) Peripheral Active edema(Confirmed) Renal Active cancer(Confirmed) Screening for Resolved diabetic retinopathy(Confirme d) Screening for Resolved prostate cancer(Confirmed) Type 2 diabetes Active mellitus with hyperglycemia(Confir med) Type 2 diabetes, Active uncontrolled, with renal manifestation(Confir med) 1Data migrated from [employer] on 04/12/15. 2Data migrated from [employer] on 05/21/15. 3Data migrated from [employer] on 04/12/15. 4Data migrated from [employer] on 05/21/15. 5Data migrated from [employer] on 05/21/15. 6Data migrated from [employer] on 04/12/15. 7Data migrated from [employer] on 05/21/15. 8Data migrated from [employer] on 04/12/15. Allergies, Adverse Reactions, Alerts Substance Reaction Severity Status clindamycin1 nausea Active 1Data migrated from [employer] on 05/22/15. Originally documented as CLINDAMYCIN HCL. nausea Medications Ambien 5 mg, 1 tab, Route: PO, Drug form: TAB, Bedtime, Dosing Weight 70.199, kg, PRN I nsomnia, Start date: 03/27/16 19:22:00 CDT, Duration: 30 day, Stop date: 6 19:21:00 CDT Notes: (Same As: Ambien) Start Date: 03/27/16 Stop Date: 03/28/16 Status: Discontinued aspirin 81 mg tablet, enteric coated 81 mg, 1 tab, Route: PO, Drug form: ECTAB, Daily, Dosing Weight 70.199, kg, Star t date: 03/26/16 9:00:00 CDT, Duration: 30 day, Stop date: 04/24/16 9:00:00 CDT Notes: Do not crush or chew.(Same As: Ecotrin) Start Date: 03/26/16 Stop Date: 03/28/16 Status: Discontinued aspirin 81 mg tablet, enteric coated 81 mg=1 tab, PO, Daily, # 90 tab, 3 Refill(s) Start Date: 03/26/16 Status: Ordered Cipro 400 mg, 200 mL, Route: IVPB, Drug form: INJ, [id number], Dosing Weight 71.364, kg, Priority: STAT, Start date: 03/26/16 3:59:00 CDT, Duration: 30 day, Stop date: 0 04/24/16 15:59:00 CDT Notes: Do not refrigerate Start Date: 03/26/16 Stop Date: 03/28/16 Status: Discontinued Cipro 500 mg oral tablet 500 mg=1 tab, PO, Q12H, X 10 day, # 20 tab, 0 Refill(s) Start Date: 03/28/16 Stop Date: 04/07/16 Status: Ordered Dextrose 50% Syringe 25 gm, 50 mL, Route: IVP, Drug Form: INJ, Dosing Weight 70.199, kg, PRN, PRN Blo od Glucose Results, Start date: 03/26/16 7:52:00 CDT, Duration: 30 day, Stop klarissa e: 04/25/16 7:51:00 CDT Start Date: 03/26/16 Stop Date: 03/28/16 Status: Discontinued Dextrose 50% Syringe 12.5 gm, 25 mL, Route: IVP, Drug Form: INJ, Dosing Weight 70.199, kg, PRN, PRN B lood Glucose Results, Start date: 03/26/16 7:52:00 CDT, Duration: 30 day, Stop d ate: 04/25/16 7:51:00 CDT Start Date: 03/26/16 Stop Date: 03/28/16 Status: Discontinued enalapril 10 mg oral tablet 10 mg=1 tab, PO, BID, 0 Refill(s) Start Date: 03/26/16 Status: Ordered Flagyl 500 mg oral tablet 500 mg=1 tab, PO, Q8H, X 10 day, # 30 tab, 0 Refill(s) Start Date: 03/28/16 Stop Date: 04/07/16 Status: Ordered fluticasone 50 mcg inhalation powder 50 microgram=1 ea, INHALATION, BID, # 180 ea, 0 Refill(s) Start Date: 03/26/16 Status: Ordered furosemide 20 mg oral tablet 20 mg=1 tab, PO, BID, 0 Refill(s) Start Date: 03/26/16 Stop Date: 03/28/16 Status: Discontinued glipiZIDE 5 mg oral tablet 5 mg=1 tab, PO, BID-Before Meals, # 30 tab, 1 Refill(s) Start Date: 03/26/16 Status: Ordered glucagon 1 mg, Route: IM, Drug form: PDR/INJ, PRN, Dosing Weight 70.199, kg, PRN Blood Gl ucose Results, Start date: 03/26/16 7:52:00 CDT, Duration: 30 day, Stop date: 7:51:00 CDT Start Date: 03/26/16 Stop Date: 03/28/16 Status: Discontinued insulin aspart 3 unit, 0.03 mL, Route: SUB-Q, Drug form: SOLN, TID-Before Meals, Dosing Weight 70.199, kg, PRN Blood Glucose Results, Start date: 03/26/16 7:52:00 CDT, Duratio n: 30 day, Stop date: 04/25/16 7:51:00 CDT Notes: Roll in palms of hands gently; Do not shake vigorously. (Same as: Terell Zamora)"single patient use only"WASTE: F/P - Black; E - Municipal Trash Bin Stable f or 28 days at room temperature.Expires in days from Date Start Date: 03/26/16 Stop Date: 03/28/16 Status: Discontinued insulin aspart 2 unit, 0.02 mL, Route: SUB-Q, Drug form: SOLN, TID-Before Meals, Dosing Weight 70.199, kg, PRN Blood Glucose Results, Start date: 03/26/16 7:52:00 CDT, Duratio n: 30 day, Stop date: 04/25/16 7:51:00 CDT Notes: Roll in palms of hands gently; Do not shake vigorously. (Same as: Terell Zamora)"single patient use only"WASTE: F/P - Black; E - Municipal Trash Bin Stable f or 28 days at room temperature.Expires in days from Date Start Date: 03/26/16 Stop Date: 03/28/16 Status: Discontinued insulin aspart 1 unit, 0.01 mL, Route: SUB-Q, Drug form: SOLN, TID-Before Meals, Dosing Weight 70.199, kg, PRN Blood Glucose Results, Start date: 03/26/16 7:52:00 CDT, Duratio n: 30 day, Stop date: 04/25/16 7:51:00 CDT Notes: Roll in palms of hands gently; Do not shake vigorously. (Same as: Terell Zamora)"single patient use only"WASTE: F/P - Black; E - Municipal Trash Bin Stable f or 28 days at room temperature.Expires in days from Date Start Date: 03/26/16 Stop Date: 03/28/16 Status: Discontinued insulin aspart 5 unit, 0.05 mL, Route: SUB-Q, Drug form: SOLN, TID-Before Meals, Dosing Weight 70.199, kg, PRN Blood Glucose Results, Start date: 03/26/16 7:52:00 CDT, Duratio n: 30 day, Stop date: 04/25/16 7:51:00 CDT Notes: Roll in palms of hands gently; Do not shake vigorously. (Same as: Terell Zamora)"single patient use only"WASTE: F/P - Black; E - Municipal Trash Bin Stable f or 28 days at room temperature.Expires in days from Date Start Date: 03/26/16 Stop Date: 03/28/16 Status: Discontinued insulin aspart 4 unit, 0.04 mL, Route: SUB-Q, Drug form: SOLN, TID-Before Meals, Dosing Weight 70.199, kg, PRN Blood Glucose Results, Start date: 03/26/16 7:52:00 CDT, Duratio n: 30 day, Stop date: 04/25/16 7:51:00 CDT Notes: Roll in palms of hands gently; Do not shake vigorously. (Same as: Terell Zamora)"single patient use only"WASTE: F/P - Black; E - Municipal Trash Bin Stable f or 28 days at room temperature.Expires in days from Date Start Date: 03/26/16 Stop Date: 03/28/16 Status: Discontinued insulin aspart 1 unit, 0.01 mL, Route: SUB-Q, Drug form: SOLN, Bedtime, Dosing Weight 70.199, k g, PRN Blood Glucose Results, Start date: 03/26/16 7:52:00 CDT, Duration: 30 day , Stop date: 04/25/16 7:51:00 CDT Notes: Roll in palms of hands gently; Do not shake vigorously. (Same as: Terell Zamora)"single patient use only"WASTE: F/P - Black; E - Municipal Trash Bin Stable f or 28 days at room temperature.Expires in days from Date Start Date: 03/26/16 Stop Date: 03/28/16 Status: Discontinued insulin aspart 4 unit, 0.04 mL, Route: SUB-Q, Drug form: SOLN, Bedtime, Dosing Weight 70.199, k g, PRN Blood Glucose Results, Start date: 03/26/16 7:52:00 CDT, Duration: 30 day , Stop date: 04/25/16 7:51:00 CDT Notes: Roll in palms of hands gently; Do not shake vigorously. (Same as: Terell Zamora)"single patient use only"WASTE: F/P - Black; E - Municipal Trash Bin Stable f or 28 days at room temperature.Expires in days from Date Start Date: 03/26/16 Stop Date: 03/28/16 Status: Discontinued insulin aspart 3 unit, 0.03 mL, Route: SUB-Q, Drug form: SOLN, Bedtime, Dosing Weight 70.199, k g, PRN Blood Glucose Results, Start date: 03/26/16 7:52:00 CDT, Duration: 30 day , Stop date: 04/25/16 7:51:00 CDT Notes: Roll in palms of hands gently; Do not shake vigorously. (Same as: Terell Zamora)"single patient use only"WASTE: F/P - Black; E - Municipal Trash Bin Stable f or 28 days at room temperature.Expires in days from Date Start Date: 03/26/16 Stop Date: 03/28/16 Status: Discontinued insulin aspart 2 unit, 0.02 mL, Route: SUB-Q, Drug form: SOLN, Bedtime, Dosing Weight 70.199, k g, PRN Blood Glucose Results, Start date: 03/26/16 7:52:00 CDT, Duration: 30 day , Stop date: 04/25/16 7:51:00 CDT Notes: Roll in palms of hands gently; Do not shake vigorously. (Same as: Terell Zamora)"single patient use only"WASTE: F/P - Black; E - Municipal Trash Bin Stable f or 28 days at room temperature.Expires in days from Date Start Date: 03/26/16 Stop Date: 03/28/16 Status: Discontinued iron sulfate (ferrous sulfate) 325 mg oral tablet 325 mg=1 tab, PO, Daily, 0 Refill(s) Start Date: 03/26/16 Status: Ordered loratadine 10 mg oral tablet 10 mg=1 tab, PO, Daily, # 7 tab, 0 Refill(s) Start Date: 03/26/16 Stop Date: 03/28/16 Status: Discontinued metolazone 2.5 mg oral tablet 2.5 mg=1 tab, PO, Daily, # 30 tab, 0 Refill(s) Start Date: 03/26/16 Stop Date: 03/28/16 Status: Discontinued metroNIDAZOLE 500 mg, 100 mL, Route: IVPB, Drug form: INJ, ABXQ6H, Dosing Weight 71.364, kg, P riority: STAT, Start date: 03/26/16 3:59:00 CDT, Duration: 30 day, Stop date: 21:59:00 CDT Notes: (Same as: Flagyl) Avoid alcohol. Start Date: 03/26/16 Stop Date: 03/28/16 Status: Discontinued minocycline 100 mg oral tablet 100 mg=1 tab, PO, Q12H, 0 Refill(s) Start Date: 03/26/16 Stop Date: 03/28/16 Status: Discontinued morphine Sulfate 4 mg, 2 mL, Route: IVP, Drug form: INJ, ONCE, Dosing Weight 71.364, kg, Priority : STAT, Start date: 03/25/16 22:38:00 CDT, Stop date: 03/25/16 22:38:00 CDT Notes: (Same as:MORPhine Sulfate) Start Date: 03/25/16 Stop Date: 03/25/16 Status: Completed morphine Sulfate 4 mg, 2 mL, Route: IVP, Drug form: INJ, Q3H, Dosing Weight 71.364, kg, PRN Pain Score 4-6, Start date: 03/26/16 3:59:00 CDT, Duration: 30 day, Stop date: 3:58:00 CDT Notes: (Same as:MORPhine Sulfate) Start Date: 03/26/16 Stop Date: 03/28/16 Status: Discontinued morphine Sulfate 4 mg, Route: IVP, ONCE, Dosing Weight 71.364, kg, Start date: 03/26/16 0:59:00 C DT, Stop date: 03/26/16 0:59:00 CDT Start Date: 03/26/16 Stop Date: 03/26/16 Status: Completed omeprazole 40 mg oral delayed release capsule 40 mg=1 cap, PO, Daily, # 30 cap, 0 Refill(s) Start Date: 03/26/16 Status: Ordered ondansetron 4 mg, 2 mL, Route: IVP, Drug form: INJ, ONCE, Dosing Weight 71.364, kg, Priority : STAT, Start date: 03/25/16 22:38:00 CDT, Stop date: 03/25/16 22:38:00 CDT Notes: (Same as: Zofran) MEDICATION WASTE Product Size: 4 mgProduct Was amanda: ___ mg Start Date: 03/25/16 Stop Date: 03/25/16 Status: Completed ondansetron 4 mg, 2 mL, Route: IVP, Drug form: INJ, Q6H, Dosing Weight 71.364, kg, PRN Nause a & Vomiting, Start date: 03/26/16 3:59:00 CDT, Duration: 30 day, Stop date: 04/25/16 3:58:00 CDT Notes: (Same as: Zofran) MEDICATION WASTE Product Size: 4 mgProduct Was amanda: ___ mg Start Date: 03/26/16 Stop Date: 03/28/16 Status: Discontinued potassium chloride 40 mEq, 2 tab, Route: PO, Drug form: ERTAB, ONCE, Dosing Weight 70.199, kg, Prio rity: NOW, Start date: 03/28/16 8:54:00 CDT, Stop date: 03/28/16 8:54:00 CDT Notes: (Same as: K-Dur 20)"Do Not Crush" With food and full glass of water Start Date: 03/28/16 Stop Date: 03/28/16 Status: Completed potassium chloride 10 mEq, 100 mL, Route: IVPB, Drug form: INJ, Q1H, Dosing Weight 71.364, kg, Tota l Dose=60 meq, Start date: 03/25/16 23:00:00 CDT, Duration: 6 doses or times, St op date: 03/26/16 4:00:00 CDT, Peripheral Line Notes: Infuse at a rate of 10 mEq/hr.(Same as: KCL) Start Date: 03/25/16 Stop Date: 03/26/16 Status: Completed potassium chloride 40 mEq, 2 tab, Route: PO, Drug form: ERTAB, ONCE, Dosing Weight 70.199, kg, Star t date: 03/27/16 6:17:00 CDT, Stop date: 03/27/16 6:17:00 CDT Notes: (Same as: K-Dur 20)"Do Not Crush" With food and full glass of water Start Date: 03/27/16 Stop Date: 03/27/16 Status: Completed potassium chloride 20 mEq/15 mL oral liquid 40 mEq, 30 mL, Route: PO, Drug form: LIQ, ONCE, Dosing Weight 71.364, kg, Priori ty: STAT, Start date: 03/25/16 22:38:00 CDT, Stop date: 03/25/16 22:38:00 CDT Notes: (Same as: Potassium Chloride) Start Date: 03/25/16 Stop Date: 03/25/16 Status: Completed repaglinide 1 mg oral tablet 1 mg=1 tab, PO, TID-Before Meals, # 90 tab, 0 Refill(s) Start Date: 03/26/16 Stop Date: 04/25/16 Status: Ordered Saline Flush 0.9% 10 ml, Route: IVP, Drug Form: INJ, Dosing Weight 71.364, kg, PRN, PRN Line Flush , Start date: 03/26/16 3:59:00 CDT, Duration: 30 day, Stop date: 04/25/16 3:58:0 0 CDT Notes: (Same as: BD Posiflush) Start Date: 03/26/16 Stop Date: 03/28/16 Status: Discontinued simvastatin 20 mg, 1 tab, Route: PO, Drug form: TAB, Bedtime, Dosing Weight 70.199, kg, Star t date: 03/26/16 21:00:00 CDT, Duration: 30 day, Stop date: 04/24/16 21:00:00 CD T Notes: (Same as: Zocor) Start Date: 03/26/16 Stop Date: 03/28/16 Status: Discontinued simvastatin 20 mg oral tablet 20 mg=1 tab, PO, Bedtime, # 30 tab, 1 Refill(s) Start Date: 03/26/16 Status: Ordered Sodium Chloride 0.9% IV 1,000 mL 1,000 mL, Rate: 75 ml/hr, Infuse over: 13.3 hr, Route: IV, Dosing Weight 71.364 kg, Total Volume: 1,000, Priority: STAT, Start date: 03/25/16 22:38:00 CDT, Dura tion: 1 doses or times, Stop date: 03/26/16 11:55:00 CDT Start Date: 03/25/16 Stop Date: 03/25/16 Status: Completed Sodium Chloride 0.9% IV 1,000 mL 1,000 mL, Rate: 100 ml/hr, Infuse over: 10 hr, Route: IV, Dosing Weight 71.364 k g, Total Volume: 1,000, Start date: 03/26/16 3:59:00 CDT, Duration: 30 day, Stop date: 04/25/16 3:58:00 CDT Start Date: 03/26/16 Stop Date: 03/27/16 Status: Discontinued tramadol 50 mg oral tablet 50 mg, 1 tab, Route: PO, Drug form: TAB, Q8H, PRN Pain Score 1-5, Start date: 7:34:00 CDT, Duration: 30 day, Stop date: 04/25/16 7:33:00 CDT Notes: Not to exceed 400mg/day. (Same As: Ultram) Start Date: 03/26/16 Stop Date: 03/28/16 Status: Discontinued Tylenol 325 mg, 1 tab, Route: PO, Drug form: TAB, Q8H, PRN Pain Score 1-5, Start date: 0 03/26/16 7:34:00 CDT, Duration: 30 day, Stop date: 04/25/16 7:33:00 CDT Notes: Do not exceed 4 gm/day. (Same as: Tylenol) Start Date: 03/26/16 Stop Date: 03/28/16 Status: Discontinued Ultracet oral tablet 1 tab, Route: PO, Drug Form: TAB, Dosing Weight 70.199, kg, Q8H, PRN Pain Score 1-5, Start date: 03/26/16 7:14:00 CDT, Duration: 30 day, Stop date: 04/25/16 7:1 3:00 CDT Start Date: 03/26/16 Stop Date: 03/26/16 Status: Deleted Ultracet oral tablet 1 tab, PO, Q8H, PRN Pain, # 30 tab, 0 Refill(s) Start Date: 03/26/16 Stop Date: 04/05/16 Status: Ordered Ultracet oral tablet 1 tab, PO, Q8H, PRN Pain, # 30 tab, 0 Refill(s) Start Date: 03/26/16 Stop Date: 03/28/16 Status: Discontinued Zofran 4 mg, 1 tab, Route: PO, Drug form: TAB, Q8H, Dosing Weight 70.199, kg, PRN Nause a, Start date: 03/26/16 7:50:00 CDT, Duration: 30 day, Stop date: 04/25/16 7:49: 00 CDT Notes: (Same as: Zofran) Start Date: 03/26/16 Stop Date: 03/28/16 Status: Discontinued Zofran ODT 4 mg oral tablet, disintegrating 4 mg=1 tab, PO, BID, PRN Nausea and Vomiting, Dissolve tab under tongue, X 5 day , # 10 tab, 0 Refill(s) Start Date: 03/28/16 Stop Date: 04/02/16 Status: Ordered Results ELECTROLYTES 1 2 3 Most recent to oldest [Reference Range]: 130 mEq/L *LOW* (03/28/16 6:53 AM) 101 mEq/L *CRIT* (03/28/16 5:13 AM) 134 mEq/L *LOW* (03/27/16 3:50 AM) Sodium Lvl [135-145 mEq/L] 3.2 mEq/L *LOW* (03/28/16 6:53 AM) 2.5 mEq/L *CRIT* (03/28/16 5:13 AM) 2.9 mEq/L 1 *CRIT* (03/27/16 3:50 AM) Potassium Lvl [3.5-5.1 mEq/L] 99 mEq/L (03/28/16 6:53 AM) 72 mEq/L *LOW* (03/28/16 5:13 AM) 100 mEq/L (03/27/16 3:50 AM) Chloride Lvl [95-109 mEq/L] 22 mEq/L *LOW* (03/28/16 6:53 AM) 16 mEq/L *LOW* (03/28/16 5:13 AM) 24 mEq/L (03/27/16 3:50 AM) CO2 [24-32 mEq/L] 12.2 mEq/L (03/28/16 6:53 AM) 15.5 mEq/L (03/28/16 5:13 AM) 12.9 mEq/L (03/27/16 3:50 AM) AGAP [10.0-20.0 mEq/L] 1Result Comment: Critical Result(s) called to clemente saavedra at 03/27/2016 05:29 by oly. Read back OK. CHEM PANEL 1 2 3 Most recent to oldest [Reference Range]: 1.07 mg/dL (03/28/16 6:53 AM) 1.20 mg/dL (03/28/16 5:13 AM) 0.96 mg/dL (03/27/16 3:50 AM) Creatinine Lvl [0.50-1.40 mg/dL] 69 mL/min/1.73m2 1 *NA* (03/28/16 6:53 AM) 60 mL/min/1.73m2 2 *NA* (03/28/16 5:13 AM) 79 mL/min/1.73m2 3 *NA* (03/27/16 3:50 AM) eGFR 9 mg/dL (03/28/16 6:53 AM) 6 mg/dL *LOW* (03/28/16 5:13 AM) 6 mg/dL *LOW* (03/27/16 3:50 AM) BUN [7-22 mg/dL] 11 (03/25/16 8:38 PM) B/C Ratio [6-25] 166 mg/dL *HI* (03/28/16 6:53 AM) 1323 mg/dL 4 *CRIT* (03/28/16 5:13 AM) 196 mg/dL *HI* (03/27/16 3:50 AM) Glucose Lvl [70-99 mg/dL] 7.5 g/dL (03/25/16 8:38 PM) Total Protein [6.4-8.4 g/dL] 4.0 g/dL (03/25/16 8:38 PM) Albumin Lvl [3.5-5.0 g/dL] 3.5 g/dL (03/25/16 8:38 PM) Globulin [2.0-4.0 g/dL] 1.1 (03/25/16 8:38 PM) A/G Ratio [0.7-1.6] 8.8 mg/dL (03/28/16 6:53 AM) 6.7 mg/dL *CRIT* (03/28/16 5:13 AM) 7.3 mg/dL *LOW* (03/27/16 3:50 AM) Calcium Lvl [8.5-10.5 mg/dL] 29 unit/L (03/25/16 8:38 PM) ALT [0-65 unit/L] 26 unit/L (03/25/16 8:38 PM) AST [0-37 unit/L] 150 unit/L *HI* (03/25/16 8:38 PM) Alk Phos [39-136 unit/L] 1.0 mg/dL (03/25/16 8:38 PM) Bili Total [0.2-1.3 mg/dL] 175 unit/L (03/25/16 8:38 PM) Lipase Lvl [73-393 unit/L] 1.9 mMol/L (03/26/16 1:41 AM) Lactic Acid Lvl [0.5-2.2 mMol/L] 1Result Comment: The eGFR is calculated using [...] be mul tiplied by the estimated BMI. 2Result Comment: The eGFR is calculated using [...] be mul tiplied by the estimated BMI. 3Result Comment: The eGFR is calculated using the [...] be mul tiplied by the estimated BMI. 4Result Comment: Critical Result(s) called to Sandi Gabriel at 03/28/2016 05:42 by tb. Read back OK. CARDIAC ENZYMES 1 2 3 Most recent to oldest [Reference Range]: 114 unit/L (03/25/16 8:38 PM) Total CK [12-191 unit/L] 2.7 ng/mL (03/25/16 8:38 PM) CK MB [0.5-3.6 ng/mL] 2.4 (03/25/16 8:38 PM) CK MB Index [0.0-2.5] <0.02 ng/mL (03/25/16 8:38 PM) Troponin-I [0.00-0.40 ng/mL] URINE AND STOOL 1 2 3 Most recent to oldest [Reference Range]: Clear (03/25/16 9:04 PM) UA Turbidity [Clear] Ltyellow *NA* (03/25/16 9:04 PM) UA Color 7.0 (03/25/16 9:04 PM) UA pH [5.0-8.0] 1.005 (03/25/16 9:04 PM) UA Spec Grav [<=1.030] 500 mg/dL *ABN* (03/25/16 9:04 PM) UA Glucose [Negative mg/dL] Negative (03/25/16 9:04 PM) UA Blood [Negative] Negative mg/dL *NA* (03/25/16 9:04 PM) UA Ketones [Negative mg/dL] Negative mg/dL (03/25/16 9:04 PM) UA Protein [Negative mg/dL] <=1.0 mg/dL *NA* (03/25/16 9:04 PM) UA Urobilinogen [0.1-1.0 mg/dL] Negative *NA* (03/25/16 9:04 PM) UA Bili [Negative] Negative (03/25/16 9:04 PM) UA Leuk Est [Negative] Negative (03/25/16 9:04 PM) UA Nitrite [Negative] 5 /HPF *HI* (03/25/16 9:04 PM) UA RBC [0-2 /HPF] None Seen *NA* (03/25/16 9:04 PM) UA Sq Epi HEMATOLOGY 1 2 3 Most recent to oldest [Reference Range]: 6.4 K/CMM (03/27/16 3:50 AM) 7.9 K/CMM (03/25/16 8:38 PM) WBC [3.7-10.4 K/CMM] 3.78 M/CMM *LOW* (03/27/16 3:50 AM) 5.01 M/CMM (03/25/16 8:38 PM) RBC [4.70-6.10 M/CMM] 11.4 g/dL *LOW* (03/27/16 3:50 AM) 15.0 g/dL (03/25/16 8:38 PM) Hgb [14.0-18.0 g/dL] 33.3 % *LOW* (03/27/16 3:50 AM) 43.0 % (03/25/16 8:38 PM) Hct [42.0-54.0 %] 88.2 fL (03/27/16 3:50 AM) 85.7 fL (03/25/16 8:38 PM) MCV [80.0-94.0 fL] 30.3 pg (03/27/16 3:50 AM) 29.9 pg (03/25/16 8:38 PM) MCH [27.0-31.0 pg] 34.4 g/dL (03/27/16 3:50 AM) 34.9 g/dL (03/25/16 8:38 PM) MCHC [32.0-36.0 g/dL] 14.9 % *HI* (03/27/16 3:50 AM) 15.6 % *HI* (03/25/16 8:38 PM) RDW [11.5-14.5 %] 167 K/CMM (03/27/16 3:50 AM) 217 K/CMM (03/25/16 8:38 PM) Platelet [133-450 K/CMM] 7.0 fL *LOW* (03/27/16 3:50 AM) 6.9 fL *LOW* (03/25/16 8:38 PM) MPV [7.4-10.4 fL] 72.2 % (03/27/16 3:50 AM) 71.3 % (03/25/16 8:38 PM) Segs [45.0-75.0 %] 15.1 % *LOW* (03/27/16 3:50 AM) 17.0 % *LOW* (03/25/16 8:38 PM) Lymphocytes [20.0-40.0 %] 11.5 % (03/27/16 3:50 AM) 11.2 % (03/25/16 8:38 PM) Monocytes [2.0-12.0 %] 0.3 % (03/27/16 3:50 AM) 0.1 % (03/25/16 8:38 PM) Eosinophils [0.0-4.0 %] 0.9 % (03/27/16 3:50 AM) 0.4 % (03/25/16 8:38 PM) Basophils [0.0-1.0 %] 4.6 K/CMM (03/27/16 3:50 AM) 5.7 K/CMM (03/25/16 8:38 PM) Segs-Bands # [1.5-8.1 K/CMM] 1.0 K/CMM (03/27/16 3:50 AM) 1.3 K/CMM (03/25/16 8:38 PM) Lymphocytes # [1.0-5.5 K/CMM] 0.7 K/CMM (03/27/16 3:50 AM) 0.9 K/CMM *HI* (03/25/16 8:38 PM) Monocytes # [0.0-0.8 K/CMM] 0.1 K/CMM (03/27/16 3:50 AM) Basophils # [0.0-0.2 K/CMM] 14.6 seconds (03/25/16 8:38 PM) PT [12.0-14.7 seconds] 1.11 (03/25/16 8:38 PM) INR [0.85-1.17] 35.7 seconds (03/25/16 8:38 PM) PTT [22.9-35.8 seconds] Immunizations Vaccine Date Refusal Reason Hx influenza vaccine-unspecified1 07/24/14 influenza virus vaccine, inactivated 08/19/15 influenza virus vaccine, inactivated2 07/24/14 1Result Comment: done. Migrated from OBS ; Data migrated from [employer] on 12/16/2015. 2Result Comment: fluzone high dose [[id number]]. Migrated from OBS ; Data migrated from [employer] on 12/16/2015. Procedures Procedure Date Related Diagnosis Body Site Implantation of cardiac pacemaker 03/2016 Implantation of heart pacemaker 03/2016 Nephrectomy1 10/24/15 Colonoscopy2 05/28/15 Decompression laminectomy of lumbar spine TURP - Transurethral resection of prostate 1Right kidney due to right renal cancer 2polyps, diverticulosis, repeat in 3 years Social History Social History Type Response Substance Abuse Use: None. Exercise Exercise duration: 25. Exercise frequency: 1-2 times/week. Exercise type: Walking. 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 Alcohol Never Smoking Status Never smoker; Exposure to Tobacco Smoke None; Cigarette Smoking Last 365 Days No; Reg Smoking Cessation Counseling No Assessment and Plan Extracted from: Title: Clinical Document Author: Madelin Bloom MD Date: 03/28/16 Progress Note Gastroenterology and Hepatology ASSESSMENT /PLAN: A 70-year-old male with extensive past medical history including right nephrectomy for renal cell cancer, hypertension, diabetes, bradyarrhythmia requiring pacemaker placement, history of colon polyps, among other medical problems who was admitted with recent onset abdominal pain, nausea, vomiting and fevers with imaging showing possible ascending colon diverticulitis. Patient is currently stable without significant symptoms and no significant leukocytosis. -Advance diet as tolerated -Complete antibiotic course. Stable from GI stand point. SUBJECTIVE: Patient seen and examined at bedside. Events of the day reviewed with nursing staff. No new complaints. 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 24 Hr Tmin: 97.5F (36.39c) at 03/28 03:58Weights are the last 5 in 60 days, plus initial. DateWt(kg)Wt(lb)Ht(cm)Ht(in)MethodBMI 03/26 70.20 154.48035.72 68.00Measured 23.5 03/25 (initial) 71.36 157.15174.72 68.00Estimated 23.9 Most Recent Scores: 03/28/16Glasgow Coma Score15 03/28/16Braden Score20 03/28/16Johns Ahn Fall Score9 03/28/16Pain Intensity NRS (0-10)0 (all previously charted lines have been discontinued) (no surgical procedures documented) I&ORecordInOutBal 4hr Tot 102 875 -773 1424hr Tot 1522 2100 -578 24hr Labs 03/28 0753 Glucose MBX697 H 03/28 0653 Glucose Xrr865 H BUN9 Creatinine Lvl1.07 Sodium Uwl472 L Potassium Lvl3.2 L Chloride Lvl99 CO222 L AGAP12.2 Calcium Lvl8.8 eGFR69 03/28 0602 Glucose NUT873 H 03/28 0513 Glucose Qhg1723 C BUN6 L Creatinine Lvl1.20 Sodium Bmx448 C Potassium Lvl2.5 C Chloride Lvl72 L CO216 L AGAP15.5 Calcium Lvl6.7 C eGFR60 03/28 0330 Glucose YMQ615 H 03/27 2014 Glucose UWQ198 H 03/27 1544 Glucose RTA820 H Scheduled Meds (4): aspirin (aspirin 81 mg tablet, enteric coated) 81 mg PO Daily [eMAR Schedule: (03/28/16) 09:00] [Future Dose: 03/29/16 09:00] ciprofloxacin (Cipro) 400 mg IVPB QRGQ73U 200 ml/hr [Last Rescheduled Dt/Tm: 03/26/16 15:59:00 CDT] [eMAR Schedule: (03/28/16) 03:59, 15:59] metroNIDAZOLE 500 mg IVPB ABXQ6H 200 ml/hr [Last Rescheduled Dt/Tm: 05/13/16 9:59:00 CDT] [eMAR Schedule: (03/28/16) 03:59, 09:59, 15:59, 21:59] simvastatin 20 mg PO Bedtime [eMAR Schedule: (03/28/16) 21:00] [Future Dose: 03/29/16 21:00] Unscheduled Meds: None PRN Meds (19): Dextrose 50% in Water IV (Dextrose 50% Syringe) 12.5 gm IVP PRN Dextrose 50% in Water IV (Dextrose 50% Syringe) 25 gm IVP PRN acetaminophen (Tylenol) 325 mg PO Q8H glucagon 1 mg IM PRN insulin aspart 1 unit SUB-Q TID-Before Meals insulin aspart 2 unit SUB-Q TID-Before Meals insulin aspart 3 unit SUB-Q TID-Before Meals insulin aspart 4 unit SUB-Q TID-Before Meals insulin aspart 5 unit SUB-Q TID-Before Meals insulin aspart 1 unit SUB-Q Bedtime insulin aspart 2 unit SUB-Q Bedtime insulin aspart 3 unit SUB-Q Bedtime insulin aspart 4 unit SUB-Q Bedtime morphine Sulfate 4 mg IVP Q3H ondansetron 4 mg IVP Q6H ondansetron (Zofran) 4 mg PO Q8H sodium chloride (Saline Flush 0.9%) 10 ml IVP PRN tramadol (tramadol 50 mg oral tablet) 50 mg PO Q8H zolpidem (Ambien) 5 mg PO Bedtime One Time Meds (2): (Completed) potassium chloride 40 mEq PO ONCE (Completed) potassium chloride 40 mEq PO ONCE Continuous Infusions: None Type of Bladder Control: Voluntary Type of Urinary Elimination: Continent Extracted from: Title: Clinical Document Author: Madelin Bloom MD Date: 03/27/16 Progress Note Gastroenterology and Hepatology ASSESSMENT /PLAN: A 70-year-old male with extensive past medical history including right nephrectomy for renal cell cancer, hypertension, diabetes, bradyarrhythmia requiring pacemaker placement, history of colon polyps, among other medical problems who was admitted with recent onset abdominal pain, nausea, vomiting and fevers with imaging showing possible ascending colon diverticulitis. Patient is currently stable without significant symptoms and no significant leukocytosis. -Advance diet as tolerated -Complete antibiotic course. SUBJECTIVE: Patient seen and examined at bedside. Events of the day reviewed with nursing staff. No new complaints. 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 24 Hr Tmin: 97.8F (36.56c) at 03/27 00:25Weights are the last 5 in 60 days, plus initial. DateWt(kg)Wt(lb)Ht(cm)Ht(in)MethodBMI 03/26 70.20 154.54070.72 68.00Measured 23.5 03/25 (initial) 71.36 157.86926.72 68.00Estimated 23.9 Most Recent Scores: 03/27/16Pain Intensity NRS (0-10)0 03/27/16Johns Ahn Fall Score10 03/26/16Braden Score20 03/26/16Glasgow Coma Score15 Lines, Tubes, and Drains: 03/25/2016 22:45 Peripheral Lines: Antecubital Left 20 gauge Over the needle catheter 03/25/2016 20:30 Peripheral Lines: Hand Right 20 gauge Over the needle catheter (no surgical procedures documented) I&ORecordInOutBal 03/1424hr Tot 1222 0 1222 03/1324hr Tot 5156 2322 2831 24hr Labs 03/27 2014 Glucose ABS026 H 03/27 1544 Glucose FBK271 H 03/27 1132 Glucose YQS065 H 03/27 0738 Glucose TDH157 H 03/27 0350 Glucose Syb998 H BUN6 L Creatinine Lvl0.96 Sodium Ewx654 L Potassium Lvl2.9 C Chloride Obn642 CO224 AGAP12.9 Calcium Lvl7.3 L eGFR79 WBC6.4 RBC3.78 L Hgb11.4 L Hct33.3 L MCV88.2 MCH30.3 MCHC34.4 RDW14.9 H Fiumhzio510 MPV7.0 L Segs72.2 Qchujbbrg61.5 Rybixzspgmx21.1 L Eosinophils0.3 Basophils0.9 Segs-Bands #4.6 Lymphocytes #1.0 Monocytes #0.7 Basophils #0.1 03/27 0305 Glucose DJW903 H Scheduled Meds (4): aspirin (aspirin 81 mg tablet, enteric coated) 81 mg PO Daily [eMAR Schedule: (03/27/16) 09:00] [Future Dose: 03/28/16 09:00] ciprofloxacin (Cipro) 400 mg IVPB KSSV64W 200 ml/hr [Last Rescheduled Dt/Tm: 03/26/16 15:59:00 CDT] [eMAR Schedule: (03/27/16) 03:59, 15:59; (03/28/16) 03:59] metroNIDAZOLE 500 mg IVPB ABXQ6H 200 ml/hr [Last Rescheduled Dt/Tm: 03/26/16 9:59:00 CDT] [eMAR Schedule: (03/27/16) 03:59, 09:59, 15:59, 21:59; (03/28/16) 03:59] simvastatin 20 mg PO Bedtime [eMAR Schedule: (03/27/16) 21:00] [Future Dose: 03/28/16 21:00] Unscheduled Meds: None PRN Meds (19): Dextrose 50% in Water IV (Dextrose 50% Syringe) 12.5 gm IVP PRN Dextrose 50% in Water IV (Dextrose 50% Syringe) 25 gm IVP PRN acetaminophen (Tylenol) 325 mg PO Q8H glucagon 1 mg IM PRN insulin aspart 1 unit SUB-Q TID-Before Meals insulin aspart 2 unit SUB-Q TID-Before Meals insulin aspart 3 unit SUB-Q TID-Before Meals insulin aspart 4 unit SUB-Q TID-Before Meals insulin aspart 5 unit SUB-Q TID-Before Meals insulin aspart 1 unit SUB-Q Bedtime insulin aspart 2 unit SUB-Q Bedtime insulin aspart 3 unit SUB-Q Bedtime insulin aspart 4 unit SUB-Q Bedtime morphine Sulfate 4 mg IVP Q3H ondansetron 4 mg IVP Q6H ondansetron (Zofran) 4 mg PO Q8H sodium chloride (Saline Flush 0.9%) 10 ml IVP PRN tramadol (tramadol 50 mg oral tablet) 50 mg PO Q8H zolpidem (Ambien) 5 mg PO Bedtime One Time Meds (1): (Completed) potassium chloride 40 mEq PO ONCE Continuous Infusions: None No results
--- OUTSIDE RECORDS SUMMARY | 2019-05-06 21:47 | XMS REPORT | Summary of Care ---
Author Author [facility] Organization [facility] Address Unknown Phone Unavailable Encounter [facility](FIN) [id number] Date(s): 03/01/19 - 03/02/19 [facility] [address] [phone] Vital Signs No data available for this [...] for Active immunization(Confirm ed) 1Data migrated from [employer] on 05/21/15. 2Data migrated from [employer] on 04/12/15. 3Data migrated from [email or web address] on 05/21/15. 4Data migrated from [employer] on 05/21/15. 5Data migrated from [employer] on 04/12/15. Allergies, Adverse Reactions, Alerts Substance Reaction Severity Status clindamycin1 nausea Active 1Data migrated from [employer] on 05/22/15. Originally documented as CLINDAMYCIN HCL. nausea Medications acetaminophen-tramadol 325 mg-37.5 mg oral tablet 1 tab, PO, Q8H, PRN Pain, # 40 tab, 0 Refill(s) Start Date: 03/01/19 Stop Date: 03/01/20 Status: Ordered Results No data available for [...] History: [place] 2Result Comment: fluzone high dose [[id number]]. Migrated from OBS ; Data migrated from [employer] on 12/16/2015. 3Location History: Pharmacy 4Location History: Pharmacy 5Result Comment: done. Migrated from OBS ; Data migrated from [employer] on 12/16/2015. 6Location History: Pharmacy Procedures Procedure [...] Reg Smoking Cessation Counseling No entered on: 03/01/19 Assessment and Plan No data available for this section
--- OUTSIDE RECORDS SUMMARY | 2019-05-06 21:47 | XMS REPORT | Summary of Care ---
Author Author [facility] [place] Organization [facility] [place] Address Unknown Phone Unavailable Encounter [facility] Lou(FIN) [id number] Date(s): 02/16/16 - 02/16/16 [facility] [place] [address] [place], [place] [address] [phone] Discharge Disposition: Home Attending Physician: Noemi Golden MD Vital Signs No data available for this section Problem List Condition Effective Dates Status Health Status Informant Abdominal Active bloating(Confirmed) Hx of unilateral Active nephrectomy(Confirme d) Benign essential 04/12/13 Active hypertension1 Benign prostatic 11/14/59 Active hyperplasia2 Chronic atrial Active fibrillation(Confirm ed) Chronic back Active pain(Confirmed) Chronic kidney Active disease stage 23 Gastritis(Confirmed) Active History of polyp of 04/16/15 Active colon4 Iron deficiency 01/13/15 Resolved anemia5 Microalbuminuria6 04/12/13 Active Mixed 04/12/13 Active hyperlipidemia7 Onychomycosis of Active toenails8 Pain in Active scapula(Confirmed) Annual physical Resolved exam(Confirmed) Renal Active cancer(Confirmed) Screening for Resolved diabetic [...] Status clindamycin1 nausea Active 1Data migrated from [employer] on 05/22/15. Originally documented as CLINDAMYCIN HCL. nausea Medications No data available for this section Results No data available for this section Immunizations Vaccine Date Refusal Reason Hx influenza vaccine-unspecified1 07/24/14 influenza virus vaccine, inactivated 08/19/15 influenza virus vaccine, inactivated2 07/24/14 1Result Comment: done. Migrated from OBS ; Data migrated from [employer] on 12/16/2015. 2Result Comment: fluzone high dose [[id number]]. Migrated from OBS ; Data migrated from [employer] on 12/16/2015. Procedures Procedure Date Related Diagnosis Body Site Nephrectomy1 10/24/15 Colonoscopy2 05/28/15 Decompression laminectomy of [...]
--- OUTSIDE RECORDS SUMMARY | 2019-05-06 21:47 | XMS REPORT | Summary of Care ---
Author Organization Unknown Address Unknown Phone Unavailable Encounter HQ Lou(MALCOLM) [id number] Date(s): 03/22/14 - 03/23/14 [facility] [address] Discharge Disposition: Home Physician Attending: Satish Wade MD Physician Admitting: Satish Wade MD Reason for Visit HYPONATREMIA, HEADACHE Vital Signs 1 2 3 Most recent to oldest [Reference Range]: 172.72 cm (03/23/14 12:19 AM) 172.72 cm (03/22/14 6:29 PM) Height 97.7 DegF (03/23/14 12:00 PM) 97.8 DegF (03/23/14 8:00 AM) 97.9 DegF (03/23/14 4:00 AM) Temperature Oral [96.4-99.1 DegF] 161 mmHg *HI* (03/23/14 12:00 PM) 158 mmHg *HI* (03/23/14 8:00 AM) 111 mmHg (03/23/14 4:00 AM) Systolic Blood Pressure [90-140 mmHg] 81 mmHg (03/23/14 12:00 PM) 81 mmHg (03/23/14 8:00 AM) 60 mmHg (03/23/14 4:00 AM) Diastolic Blood Pressure [60-90 mmHg] 16 BRMIN (03/23/14 12:00 PM) 16 BRMIN (03/23/14 8:00 AM) 18 BRMIN (03/23/14 4:00 AM) Respiratory Rate [14-20 BRMIN] 78 bpm (03/23/14 12:00 PM) 63 bpm (03/23/14 8:00 AM) 75 bpm (03/23/14 4:00 AM) Peripheral Pulse Rate [60-100 bpm] 77.727 kg (03/23/14 12:19 AM) 77.727 kg (03/22/14 6:29 PM) Weight 26.05 m2 (03/23/14 12:19 AM) 26.05 m2 (03/22/14 6:29 PM) Body Mass Index Problem List Condition Effective Dates Status Health Status Informant Atrial Resolved fibrillation(Confirm ed) Back pain(Confirmed) Resolved Diabetes(Confirmed) Resolved Hyperlipemia(Confirm Resolved ed) Hypertension(Confirm Resolved ed) Allergies, Adverse Reactions, Alerts Substance Reaction Severity Status NKDA Active Medications aspirin 81 mg tablet, enteric coated 81 mg, 1 tab, Route: PO, Drug form: ECTAB, Daily, Dosing Weight 77.727, kg, Star t date: 03/23/14 12:00:00, Duration: 30 day, Stop date: 04/22/14 9:00:00 Notes: Do not crush or chew.(Same As: Ecotrin) Start Date: 03/23/14 Stop Date: 03/23/14 Status: Discontinued aspirin 81 mg tablet, enteric coated 81 mg=1 tab, PO, Daily Start Date: 03/22/14 Status: Ordered atenolol 50 mg oral tablet 50 mg, 1 tab, Route: PO, Drug form: TAB, BID, Dosing Weight 77.727, kg, Start da te: 03/23/14 21:00:00, Duration: 30 day, Stop date: 04/22/14 9:00:00 Notes: (Same As:Tenormin) Start Date: 03/23/14 Stop Date: 03/23/14 Status: Canceled atenolol 50 mg oral tablet 50 mg=1 tab, PO, BID Start Date: 03/22/14 Status: Ordered atropine 0.5 mg, 5 mL, Route: IVP, Drug form: INJ, PRN, PRN Bradycardia, Start date: 03/14 0:48:00, Duration: 30 day, Stop date: 04/22/14 0:47:00 Start Date: 03/23/14 Stop Date: 03/23/14 Status: Discontinued Augmentin 500 mg oral tablet 1 tab, PO, BID, # 30 tab, 0 Refill(s) Start Date: 03/23/14 Status: Ordered enalapril 20 mg, 1 tab, Route: PO, Drug form: TAB, Daily, Dosing Weight 77.727, kg, Start date: 03/24/14 9:00:00, Duration: 30 day, Stop date: 04/22/14 9:00:00 Notes: (Same as: Vasotec) Start Date: 03/24/14 Stop Date: 03/23/14 Status: Canceled enalapril 20 mg oral tablet 20 mg=1 tab, PO, Daily Start Date: 03/22/14 Status: Ordered enoxaparin 40 mg, 0.4 mL, Route: SUB-Q, Drug form: INJ, [id number], Dosing Weight 77.727, kg, Start date: 03/23/14 10:00:00, Duration: 30 day, Stop date: 04/21/14 10:00:00 Notes: (Same as: Lovenox) Start Date: 03/23/14 Stop Date: 03/23/14 Status: Discontinued Fioricet oral tablet 1 tab, PO, Q4H, Headache, # 30 tab, 0 Refill(s) Start Date: 03/23/14 Status: Ordered Fish Oil 1,000 mg, Route: PO, Drug form: CAP, Daily, Dosing Weight 77.727, kg, Start date : 03/24/14 9:00:00, Duration: 30 day, Stop date: 04/22/14 9:00:00 Start Date: 03/24/14 Stop Date: 03/23/14 Status: Deleted Fish Oil PT's Own Med Fish Oil PT's Own Med, 1,000 mg, Drug form: MISC, Route: PO, Daily, 03/24 9:00:00, Duration: 30 day, Stop date: 04/22/14 9:00:00 Start Date: 03/24/14 Stop Date: 03/23/14 Status: Canceled Fish Oil 1000 mg oral capsule 1,000 mg=1 cap, PO, Daily Start Date: 03/22/14 Status: Ordered Flonase 0.05 mg/inh nasal spray 1 spray, NASAL, BID, # 16 gm, 0 Refill(s) Start Date: 03/23/14 Status: Ordered furosemide 40 mg oral tablet 40 mg=1 tab, PO, Daily Start Date: 03/22/14 Stop Date: 03/23/14 Status: Discontinued glyBURIDE 6 mg, 2 tab, Route: PO, Drug form: TAB, BID-Meals, Dosing Weight 77.727, kg, Sta rt date: 03/23/14 17:00:00, Duration: 30 day, Stop date: 04/22/14 8:00:00 Notes: (Same as: Glynase) Take with meals. Start Date: 03/23/14 Stop Date: 03/23/14 Status: Canceled glyBURIDE micronized 6 mg oral tablet 6 mg=1 tab, PO, BID Start Date: 03/22/14 Status: Ordered loratadine 10 mg, 1 tab, Route: PO, Drug form: TAB, Daily, Dosing Weight 77.727, kg, Start date: 03/24/14 9:00:00, Duration: 30 day, Stop date: 04/22/14 9:00:00 Notes: 1 hr before meals (Same as: Claritin) Start Date: 03/24/14 Stop Date: 03/23/14 Status: Canceled loratadine 10 mg oral tablet 10 mg=1 tab, PO, Daily Start Date: 03/22/14 Status: Ordered metFORMIN 500 mg oral tablet 500 mg, 1 tab, Route: PO, Drug form: TAB, BID-Meals, Dosing Weight 77.727, kg, S tart date: 03/23/14 17:00:00, Duration: 30 day, Stop date: 04/22/14 8:00:00 Notes: (Same as: Glucophage) Take with meal Start Date: 03/23/14 Stop Date: 03/23/14 Status: Canceled metFORMIN 500 mg oral tablet 500 mg=1 tab, PO, BID Start Date: 03/22/14 Status: Ordered nitroglycerin 0.4 mg sublingual tablet 0.4 mg, 1 tab, Route: SL, Drug form: TAB, Q5Min, PRN Chest Pain, Start date: 08/27 0:48:00, Duration: 30 day, Stop date: 04/22/14 0:47:00 Notes: (Same as:Nitroquick, Nitrostat)"Do Not Crush" Sublingual tablet Start Date: 03/23/14 Stop Date: 03/23/14 Status: Discontinued NURSE: Please bring PT's home med to Pharmacy to be verified NURSE: Please bring PT's home med to Pharmacy to be verified, 1, Drug form: MISC , Route: MISC, TID, 03/23/14 15:00:00, Duration: 30 day, Stop date: 04/22/14 9:0 0:00 Start Date: 03/23/14 Stop Date: 03/23/14 Status: Discontinued omeprazole 20 mg, Route: PO, Drug form: DRC, Daily, Dosing Weight 77.727, kg, Start date: 0 03/24/14 9:00:00, Duration: 30 day, Stop date: 04/22/14 9:00:00 Start Date: 03/24/14 Stop Date: 03/23/14 Status: Deleted omeprazole 20 mg oral delayed release capsule 20 mg=1 cap, PO, Daily Start Date: 03/22/14 Status: Ordered potassium chloride 10 mEq oral tablet, extended release 10 mEq=1 tab, PO, QID Start Date: 03/22/14 Stop Date: 03/23/14 Status: Discontinued Protonix 40 mg, 1 tab, Route: PO, Drug form: ECTAB, Before Dinner, Start date: 03/23/14 1 6:30:00, Duration: 30 day, Stop date: 04/21/14 16:30:00 Notes: Tablet should not be chewed or crushed.(Same as: Protonix) Start Date: 03/23/14 Stop Date: 03/23/14 Status: Discontinued Reglan 10 mg, 2 mL, Route: IVP, Drug form: INJ, ONCE, Dosing Weight 77.727, kg, Priorit y: STAT, Start date: 03/22/14 20:14:00, Stop date: 03/22/14 20:14:00 Notes: (Same as: Reglan) Start Date: 03/22/14 Stop Date: 03/22/14 Status: Completed Saline Flush 0.9% 5 ml, Route: IVP, Drug Form: INJ, Dosing Weight 77.727, kg, PRN, PRN Line Flush, Start date: 03/23/14 0:31:00, Duration: 30 day, Stop date: 04/22/14 0:30:00 Notes: (Same as: BD Posiflush) Start Date: 03/23/14 Stop Date: 03/23/14 Status: Discontinued simvastatin 20 mg, 1 tab, Route: PO, Drug form: TAB, Bedtime, Dosing Weight 77.727, kg, Star t date: 03/23/14 21:00:00, Duration: 30 day, Stop date: 04/21/14 21:00:00 Notes: (Same as: Zocor) Start Date: 03/23/14 Stop Date: 03/23/14 Status: Canceled simvastatin 20 mg oral tablet 20 mg=1 tab, PO, Bedtime Start Date: 03/22/14 Status: Ordered Sodium Chloride 0.9% IV 1,000 mL 1,000 mL, Rate: 75 ml/hr, Infuse over: 13.3 hr, Route: IV, Dosing Weight 77.727 kg, Total Volume: 1,000, Start date: 03/23/14 0:31:00, Duration: 30 day, Stop da te: 04/22/14 0:30:00 Start Date: 03/23/14 Stop Date: 03/23/14 Status: Discontinued Results ELECTROLYTES Most recent to 1 2 oldest [Reference Range]: Sodium Lvl [135-145 133 mEq/L 129 mEq/L mEq/L] *LOW* *LOW* (03/23/14 11:43 AM) (03/22/14 8:25 PM) Potassium Lvl 4.1 mEq/L 4.1 mEq/L [3.5-5.1 mEq/L] (03/23/14 11:43 AM) (03/22/14 8:25 PM) Chloride Lvl [95-109 102 mEq/L 96 mEq/L mEq/L] (03/23/14 11:43 AM) (03/22/14 8:25 PM) CO2 [24-32 mEq/L] 23 mEq/L 24 mEq/L *LOW* (03/22/14 8:25 PM) (03/23/14 11:43 AM) AGAP [10.0-20.0 12.1 mEq/L 13.1 mEq/L mEq/L] (03/23/14 11:43 AM) (03/22/14 8:25 PM) CHEM PANEL Most recent to 1 2 oldest [Reference Range]: Creatinine Lvl 0.9 mg/dL 0.7 mg/dL [0.5-1.4 mg/dL] (03/23/14 11:43 AM) (03/22/14 8:25 PM) eGFR 86 mL/min/1.73m2 1 96 mL/min/1.73m2 2 *NA* *NA* (03/23/14 11:43 AM) (03/22/14 8:25 PM) BUN [7-22 mg/dL] 7 mg/dL 3 mg/dL (03/23/14 11:43 AM) *LOW* (03/22/14 8:25 PM) B/C Ratio [6-25] 4 *LOW* (03/22/14 8:25 PM) Glucose Lvl [70-99 260 mg/dL 3 131 mg/dL 4 mg/dL] *HI* *HI* (03/23/14 11:43 AM) (03/22/14 8:25 PM) Total Protein 7.4 g/dL [6.4-8.4 g/dL] (03/22/14 8:25 PM) Albumin Lvl [3.5-5.0 4.1 g/dL g/dL] (03/22/14 8:25 PM) Globulin [2.0-4.0 3.3 g/dL g/dL] (03/22/14 8:25 PM) A/G Ratio [0.7-1.6] 1.2 (03/22/14 8:25 PM) Calcium Lvl 9.6 mg/dL 9.0 mg/dL [8.5-10.5 mg/dL] (03/23/14 11:43 AM) (03/22/14 8:25 PM) ALT [0-65 unit/L] 29 unit/L (03/22/14 8:25 PM) AST [0-37 unit/L] 17 unit/L (03/22/14 8:25 PM) Alk Phos [39-136 72 unit/L unit/L] (03/22/14 8:25 PM) Bili Total [0.2-1.3 0.5 mg/dL mg/dL] (03/22/14 8:25 PM) 1Result Comment: The eGFR is calculated [...] be mul tiplied by the estimated BMI. 3Interpretive Data: Adult reference range values reflect the clinical guidelines of the [employer]. 4Interpretive Data: Adult reference range values reflect the clinical guidelines of the [employer]. CARDIAC ENZYMES Most recent to 1 2 oldest [Reference Range]: Total CK [12-191 81 unit/L unit/L] (03/22/14 8:25 PM) CK MB [0.5-3.6 1.2 ng/mL ng/mL] (03/22/14 8:25 PM) CK MB Index 1.5 [0.0-2.5] (03/22/14 8:25 PM) Troponin-I <0.02 ng/mL [0.00-0.40 ng/mL] (03/22/14 8:25 PM) URINE AND STOOL Most recent to 1 2 oldest [Reference Range]: UA Turbidity [Clear] Clear (03/22/14 8:25 PM) UA Color [Yellow] Yellow *NA* (03/22/14 8:25 PM) UA pH [5.0-8.0] 6.5 (03/22/14 8:25 PM) UA Spec Grav <=1.005 [<=1.030] *NA* (03/22/14 8:25 PM) UA Glucose Negative [Negative] (03/22/14 8:25 PM) UA Blood [Negative] Negative (03/22/14 8:25 PM) UA Ketones Trace [Negative] *ABN* (03/22/14 8:25 PM) UA Protein Negative [Negative] (03/22/14 8:25 PM) UA Urobilinogen 0.2 EU/dL [0.1-1.0 EU/dL] (03/22/14 8:25 PM) UA Bili [Negative] Negative *NA* (03/22/14 8:25 PM) UA Leuk Est Negative [Negative] (03/22/14 8:25 PM) UA Nitrite Negative [Negative] (03/22/14 8:25 PM) UA WBC [0-5 /HPF] 0-2 /HPF (03/22/14 8:25 PM) UA RBC [0-2] None Seen (03/22/14 8:25 PM) UA Bacteria [None Occasional /HPF Seen /HPF] (03/22/14 8:25 PM) UA Sq Epi [Few /LPF] Occasional /LPF (03/22/14 8:25 PM) Micro? Performed (03/22/14 8:25 PM) HEMATOLOGY Most recent to 1 2 oldest [Reference Range]: WBC [3.7-10.4 K/CMM] 7.7 K/CMM 7.2 K/CMM (03/23/14 11:43 AM) (03/22/14 8:25 PM) RBC [4.70-6.10 4.53 M/CMM 4.42 M/CMM M/CMM] *LOW* *LOW* (03/23/14 11:43 AM) (03/22/14 8:25 PM) Hgb [14.0-18.0 g/dL] 14.4 g/dL 14.1 g/dL (03/23/14 11:43 AM) (03/22/14 8:25 PM) Hct [42.0-54.0 %] 42.3 % 41.1 % (03/23/14 11:43 AM) *LOW* (03/22/14 8:25 PM) MCV [80.0-94.0 fL] 93.3 fL 93.0 fL (03/23/14 11:43 AM) (03/22/14 8:25 PM) MCH [27.0-31.0 pg] 31.8 pg 32.0 pg *HI* *HI* (03/23/14 11:43 AM) (03/22/14 8:25 PM) MCHC [32.0-36.0 34.1 g/dL 34.4 g/dL g/dL] (03/23/14 11:43 AM) (03/22/14 8:25 PM) RDW [11.5-14.5 %] 12.9 % 12.9 % (03/23/14 11:43 AM) (03/22/14 8:25 PM) Platelet [133-450 292 K/CMM 287 K/CMM K/CMM] (03/23/14 11:43 AM) (03/22/14 8:25 PM) MPV [7.4-10.4 fL] 7.2 fL 6.9 fL *LOW* *LOW* (03/23/14 11:43 AM) (03/22/14 8:25 PM) Segs [45.0-75.0 %] 73.8 % 64.0 % (03/23/14 11:43 AM) (03/22/14 8:25 PM) Lymphocytes 16.7 % 25.2 % [20.0-40.0 %] *LOW* (03/22/14 8:25 PM) (03/23/14 11:43 AM) Monocytes [2.0-12.0 9.1 % 10.4 % %] (03/23/14 11:43 AM) (03/22/14 8:25 PM) Eosinophils [0.0-4.0 0.1 % 0.2 % %] (03/23/14 11:43 AM) (03/22/14 8:25 PM) Basophils [0.0-1.0 0.3 % 0.2 % %] (03/23/14 11:43 AM) (03/22/14 8:25 PM) Segs-Bands # 5.7 K/CMM 4.6 K/CMM [1.5-8.1 K/CMM] (03/23/14 11:43 AM) (03/22/14 8:25 PM) Lymphocytes # 1.3 K/CMM 1.8 K/CMM [1.0-5.5 K/CMM] (03/23/14 11:43 AM) (03/22/14 8:25 PM) Monocytes # [0.0-0.8 0.7 K/CMM 0.7 K/CMM K/CMM] (03/23/14 11:43 AM) (03/22/14 8:25 PM) Eosinophils # 0.0 K/CMM 0.0 K/CMM [0.0-0.5 K/CMM] (03/23/14 11:43 AM) (03/22/14 8:25 PM) Basophils # [0.0-0.2 0.0 K/CMM 0.0 K/CMM K/CMM] (03/23/14 11:43 AM) (03/22/14 8:25 PM) PT [12.0-14.7 13.4 seconds seconds] (03/22/14 8:25 PM) INR [0.85-1.17] 1.03 5 (03/22/14 8:25 PM) PTT [22.9-35.8 34.0 seconds 6 32.8 seconds 7 seconds] (03/23/14 11:43 AM) (03/22/14 8:25 PM) 5Interpretive Data: RECOMMENDED RANGES FOR PROTIME INR: 2.0-3.0 for most medical and surgical thromboembolic states. 2.5-3.5 for artificial heart valves and recurrent embolism. INR SHOULD BE USED ONLY FOR PATIENTS ON STABLE ANTICOAGULANT THERAPY. 6Interpretive Data: Heparin Therapeutic Range: 57 - 92 Seconds 7Interpretive Data: Heparin Therapeutic Range: 57 - 92 Seconds Medications Administered During Your Visit No data available for this section Immunizations No data available for this section Assessment and Plan Extracted from: Title: Neurologic Problem Admission Author: Deacon Pratt MD Date: 03/23/14 H&P * Impression and Plan NO CONULT PERFORMED
--- OUTSIDE RECORDS SUMMARY | 2019-05-06 21:47 | XMS REPORT | Summary of Care ---
Author Author [facility] Organization [facility] Address Unknown Phone Unavailable Care Team Providers Care Payroll Accounting Manager Name Role Phone Noemi Golden PCP Encounter HQ Suryar_izzy(FIN) [id number] Date(s): 09/18/18 - 09/18/18 [facility] [address] [address]- Discharge Disposition: Home or Self Care Attending Physician: Noemi Golden MD Vital Signs Most recent to 1 oldest [Reference Range]: Height 167.64 cm (09/18/18 8:18 AM) Temperature Oral 97.8 DegF [96.4-99.1 DegF] (09/18/18 8:18 AM) Blood Pressure 156/78 mmHg [90-140/60-90 mmHg] *HI* (09/18/18 8:18 AM) Respiratory Rate 16 BRMIN [14-20 BRMIN] (09/18/18 8:18 AM) Peripheral Pulse 60 bpm Rate [60-100 bpm] (09/18/18 8:18 AM) Weight 75.511 kg (09/18/18 8:18 AM) Body Mass Index 26.87 m2 (09/18/18 8:18 AM) Problem List Condition Effective Dates Status [...] Originally documented as CLINDAMYCIN HCL. nausea Medications Azithromycin 5 Day Dose Pack 250 mg oral tablet See Instructions, Take 2 tablets by mouth the first day then 1 tablet by mouth d ays 2-5., X 5 day, # 6 tab, 0 Refill(s), Pharmacy: [facility] [id number] Start Date: 09/18/18 Stop Date: 09/23/18 Status: Completed Lyrica 50 mg oral capsule 50 mg=1 cap, PO, BID, 0 Refill(s) Start Date: 09/18/18 Stop Date: 09/20/18 Status: Discontinued Results No data available for [...] History: [place] 2Result Comment: fluzone high dose [[id number]]. Migrated from OBS ; Data migrated from My [employer] Box on 12/16/2015. 3Location History: Pharmacy 4Location History: Pharmacy 5Result Comment: done. Migrated from [facility] [employer] ; Data migrated from My Pick Box on 12/16/2015. 6Location History: Pharmacy Procedures Procedure [...]
--- OUTSIDE RECORDS SUMMARY | 2019-05-06 21:48 | XMS REPORT | Summary of Care ---
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 Discharge Disposition: Home or Self Care Attending Physician: Cruzito Arteaga MD Vital Signs 1 2 3 Most recent to oldest [Reference Range]: 172.72 cm (11/05/16 11:03 PM) Height 97.9 DegF (11/06/16 6:20 AM) 98.0 DegF (11/06/16 4:00 AM) 97.8 DegF (11/06/16 2:40 AM) Temperature Oral [96.4-99.1 DegF] 133/66 mmHg (11/06/16 6:20 AM) 136/75 mmHg (11/06/16 4:00 AM) 144/67 mmHg *HI* (11/06/16 2:40 AM) Blood Pressure [90-140/60-90 mmHg] 16 BRMIN (11/06/16 6:20 AM) 18 BRMIN (11/06/16 4:00 AM) 18 BRMIN (11/06/16 2:40 AM) Respiratory Rate [14-20 BRMIN] 68 bpm (11/06/16 6:20 AM) 76 bpm (11/06/16 4:00 AM) 61 bpm (11/06/16 2:40 AM) Peripheral Pulse Rate [60-100 bpm] 75.909 kg (11/05/16 11:03 PM) Weight 25.45 m2 (11/05/16 11:03 PM) Body Mass Index Problem List Condition Effective Dates Status Health Status Informant Abdominal Resolved bloating(Confirmed) Hx of unilateral Active nephrectomy(Confirme d) Benign essential 04/12/13 Active hypertension(Confirm ed)1 Benign prostatic 11/14/59 Active hyperplasia2 Blurry vision, Active bilateral(Confirmed) Symptomatic Active bradycardia(Confirme d) Cardiac Active pacemaker(Confirmed) Chronic atrial Active fibrillation(Confirm ed) Chronic back Active pain(Confirmed) Chronic kidney Active disease stage 2(Confirmed)3 Acute Resolved diverticulitis(Confi rmed) Gastritis(Confirmed) Active History of polyp of 04/16/15 Active colon4 Hypocalcemia(Confirm Resolved ed) Hypokalemia(Confirme Resolved d) Hyponatremia(Confirm Resolved ed) Iron deficiency 01/13/15 Resolved anemia5 Microalbuminuria6 04/12/13 Active Mixed 04/12/13 Active hyperlipidemia(Confi rmed)7 Occipital Active headache(Confirmed) Onychomycosis of Active toenails8 Pain in Resolved scapula(Confirmed) Annual physical Active exam(Confirmed) Peripheral Resolved edema(Confirmed) Renal Active cancer(Confirmed) Screening for Active diabetic retinopathy(Confirme d) Screening for Active prostate cancer(Confirmed) Type 2 diabetes Active mellitus with hyperglycemia(Confir med) Type 2 diabetes Active mellitus with stage 2 chronic kidney disease(Confirmed) 1Data migrated from [employer] on 04/12/15. [...] documented as CLINDAMYCIN HCL. nausea Medications acetaminophen 650 mg, Route: PO, Drug form: TAB, ONCE, Dosing Weight 75.909, kg, Priority: STA T, Start date: 11/05/16 23:20:00 SHAPING MACHINE OPERATOR, Stop date: 11/05/16 23:20:00 SHAPING MACHINE OPERATOR Start Date: 11/05/16 Stop Date: 11/05/16 Status: Completed acetaminophen-codeine 300 mg-30 mg oral tablet 1 tab, PO, Q4H, PRN Pain, X 7 day, # 42 tab, 0 Refill(s) Start Date: 11/06/16 Stop Date: 11/13/16 Status: Ordered Augmentin 875 mg oral tablet 875 mg=1 tab, PO, BID, X 10 day, # 20 tab, 0 Refill(s) Start Date: 11/06/16 Stop Date: 11/16/16 Status: Ordered morphine Sulfate 2 mg, Route: IVP, ONCE, Dosing Weight 75.909, kg, Priority: STAT, Start date: 23:20:00 SHAPING MACHINE OPERATOR, Stop date: 11/05/16 23:20:00 SHAPING MACHINE OPERATOR Start Date: 11/05/16 Stop Date: 11/05/16 Status: Completed Reglan 10 mg, Route: IVP, Drug form: INJ, ONCE, Dosing Weight 75.909, kg, Priority: STA T, Start date: 11/05/16 23:20:00 SHAPING MACHINE OPERATOR, Stop date: 11/05/16 23:20:00 SHAPING MACHINE OPERATOR Start Date: 11/05/16 Stop Date: 11/05/16 Status: Completed Saline Flush 0.9% 10 mL, Route: IVP, Drug Form: INJ, Dosing Weight 75.909, kg, PRN, PRN Line Flush , Start date: 11/05/16 23:20:00 SHAPING MACHINE OPERATOR, Duration: 30 day, Stop date: 12/05/16 23:19 :00 SHAPING MACHINE OPERATOR Notes: (Same as: BD Posiflush) Start Date: 11/05/16 Stop Date: 11/06/16 Status: Discontinued Zofran ODT 8 mg oral tablet, disintegrating 8 mg=1 tab, PO, TID, PRN Nausea and Vomiting, Dissolve tab under tongue, X 4 day , # 30 tab, 0 Refill(s) Start Date: 11/06/16 Stop Date: 11/10/16 Status: Ordered Results ELECTROLYTES Most recent to 1 oldest [Reference Range]: Sodium Lvl [135-145 132 mEq/L mEq/L] *LOW* (11/05/16 11:40 PM) Potassium Lvl 4.4 mEq/L [3.5-5.1 mEq/L] (11/05/16 11:40 PM) Chloride Lvl [95-109 99 mEq/L mEq/L] (11/05/16 11:40 PM) CO2 [24-32 mEq/L] 20 mEq/L *LOW* (11/05/16 11:40 PM) AGAP [10.0-20.0 17.4 mEq/L mEq/L] (11/05/16 11:40 PM) CHEM PANEL Most recent to 1 oldest [Reference Range]: Creatinine Lvl 1.20 mg/dL [0.50-1.40 mg/dL] (11/05/16 11:40 PM) eGFR 60 mL/min/1.73m2 1 *NA* (11/05/16 11:40 PM) BUN [7-22 mg/dL] 12 mg/dL (11/05/16 11:40 PM) Glucose Lvl [70-99 243 mg/dL mg/dL] *HI* (11/05/16 11:40 PM) Calcium Lvl 8.9 mg/dL [8.5-10.5 mg/dL] (11/05/16 11:40 PM) 1Result Comment: The eGFR is calculated [...] be mul tiplied by the estimated BMI. HEMATOLOGY Most recent to 1 oldest [Reference Range]: WBC [3.7-10.4 K/CMM] 10.0 K/CMM (11/05/16 11:40 PM) RBC [4.70-6.10 4.43 M/CMM M/CMM] *LOW* (11/05/16 11:40 PM) Hgb [14.0-18.0 g/dL] 13.5 g/dL *LOW* (11/05/16 11:40 PM) Hct [42.0-54.0 %] 40.2 % *LOW* (11/05/16 11:40 PM) MCV [80.0-94.0 fL] 90.7 fL (11/05/16 11:40 PM) MCH [27.0-31.0 pg] 30.4 pg (11/05/16 11:40 PM) MCHC [32.0-36.0 33.6 g/dL g/dL] (11/05/16 11:40 PM) RDW [11.5-14.5 %] 13.9 % (11/05/16 11:40 PM) Platelet [133-450 211 K/CMM K/CMM] (11/05/16 11:40 PM) MPV [7.4-10.4 fL] 7.3 fL *LOW* (11/05/16 11:40 PM) Segs [45.0-75.0 %] 89.1 % *HI* (11/05/16 11:40 PM) Lymphocytes 7.1 % [20.0-40.0 %] *LOW* (11/05/16 11:40 PM) Monocytes [2.0-12.0 3.6 % %] (11/05/16 11:40 PM) Basophils [0.0-1.0 0.2 % %] (11/05/16 11:40 PM) Segs-Bands # 8.9 K/CMM [1.5-8.1 K/CMM] *HI* (11/05/16 11:40 PM) Lymphocytes # 0.7 K/CMM [1.0-5.5 K/CMM] *LOW* (11/05/16 11:40 PM) Monocytes # [0.0-0.8 0.4 K/CMM K/CMM] (11/05/16 11:40 PM) Immunizations Given and Recorded Vaccine Date Status Refusal Reason Hx influenza vaccine-unspecified1 07/06/16 Recorded Hx influenza vaccine-unspecified2 07/24/14 Given influenza virus vaccine, inactivated 08/19/15 Given influenza virus vaccine, inactivated3 07/24/14 Given pneumococcal 13-valent vaccine4 07/06/16 Recorded zoster vaccine live5 07/06/16 Recorded 1Location History: Pharmacy 2Result Comment: done. Migrated from OBS ; Data migrated from [facility] on 12/16/2015. 3Result Comment: fluzone high dose [[id number]]. Migrated from OBS ; Data migrated from [employer] on 12/16/2015. 4Location History: Pharmacy 5Location History: Pharmacy Procedures Procedure Date Related Diagnosis Body Site Implantation of cardiac pacemaker 03/2016 Nephrectomy1 10/24/15 Colonoscopy2 05/28/15 Decompression [...]
--- OUTSIDE RECORDS SUMMARY | 2019-05-06 21:48 | XMS REPORT ---
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 Allergies, Adverse Reactions, Alerts This patient has no known allergies or adverse reactions. Medications This patient has no known medications. Encounters Start Date/Time End Date/Time Encounter Type Admission Type Attending Clinicians Care Facility Care Department Encounter ID 2019-03-20 20:32:00 2019-03-20 20:32:00 Outpatient [facility] [id number] 2019-03-13 05:12:00 2019-03-13 05:12:00 Outpatient [facility] [id number] 2019-03-06 05:14:00 2019-03-06 05:14:00 [id number]
--- OUTSIDE RECORDS SUMMARY | 2019-05-06 21:48 | XMS REPORT | Summary of Care ---
Author Author CONCETTA Rosen, [facility] [place] Address Unknown Phone Unavailable Care Team Providers Care Star Route Mail Driver Name Role Phone LINETTE STEARNS N.P. Unavailable Unavailable REKHA MANSFIELD, MARIELY MENJIVAR Unavailable Unavailable Functional Status Name Dates Details Functional status health issues are not documented Status: Name Dates Details Cognitive status health issues are not documented Status: Problems Name Dates Details Diabetes (250.00, E11.9) Status: Active High blood pressure (401.9, I10) Status: Active Renal carcinoma (189.0, C64.9) Status: Active Medications Name Dates Details Baclofen 10 MG Oral Tablet Active traMADol HCl TABS * Refills: 0 Active Eliquis 5 MG Oral Tablet * Refills: 0 Active glipiZIDE 10 MG Oral Tablet * Refills: 0 Active Repaglinide 2 MG Oral Tablet * Refills: 0 Active Tamsulosin HCl - 0.4 MG Oral Capsule * Refills: 0 Active Enalapril Maleate 5 MG Oral Tablet * Refills: 0 Active Simvastatin 20 MG Oral Tablet * Refills: 0 Active Tradjenta 5 MG Oral Tablet * Refills: 0 Active Furosemide 20 MG Oral Tablet * Refills: 0 Active Lyrica 50 MG Oral Capsule * Refills: 0 Active Pantoprazole Sodium 40 MG Oral Tablet Delayed Release * Refills: 0 Active Allergies and Adverse Reactions Name Dates Details clindamycin (Allergy) Status: Active Past Medical History Name Dates Details History of malignant neoplasm of kidney (V10.52, Z85.528) Status: Resolved Procedures Procedure Dates Details History of Prostate surgery Completed History of Pacemaker insertion Completed History of Nephrectomy Completed Immunization Name Dates Details Immunizations not documented Social History Name Dates Details Unknown if ever smoked Vital Signs Date Test Result Details No Known Vitals to report Results Date Description Value Details Results not documented Plan of Care Name Dates Details Planned Observations VR Vascular/Interventional Radiology Consult Intent Comments: After 18Jan2019 Planned Goals not documented Interventions Provided Plan* Left renal cell carcinoma * * Imaging was reviewed by Dr. Whittaker who related that left lower pole renal mass is amenable for ablative therapy. The plan is to perform an image guided cryoablation of left lower pole renal mass w/general anesthesia. This is the most optimal procedure given that patient has a history of right nephrectomy. Benefits, risks, and options were discussed. Patient verbalized proceed with cryoablation. * * Pre/post procedure expectations were discussed * * Patient will require anesthesia clinic appointment prior to procedure Instructions Name Dates Details Instructions not documented Encounters Appointment; RADIOLOGY, MD PROVIDER Encounter Diagnosis: Problem not documented On: 18-Jan-2019 9:00
[2019-05-06 22:18] VITALS: BP 180/84
== END 2019-05-06 22:22 | disposition home or self-care (01) ==
LOC: ER 21:37
DX: H61.21 Impacted cerumen, right ear (principal); I10 Essential (primary) hypertension; E11.9 Type 2 diabetes mellitus without complications; I48.91 Unspecified atrial fibrillation; Z85.528 Personal history of other malignant neoplasm of kidney
CPT/HCPCS: 99282